=== PATIENT | male | born 1955 | race Caucasian/White ===

== ENCOUNTER 2016-10-18 15:00 | Emergency (ER) | payer OTHER ==
[2016-10-18 15:37] VITALS: TEMP 97.5
[2016-10-18] MEDS ORDERED: SODIUM CHLORIDE 0.9% 1,000 ML IV STA (15:59)
--- NOTE | 2016-10-18 16:02 | ED ---
Abdominal Pain HPI - General Chief Complaint: Abdominal Pain Stated Complaint: flu symptoms Time Seen by Provider: 10/18/16 15:55 Source: patient, RN notes reviewed Mode of arrival: ambulatory Limitations: no limitations - History of Present Illness Initial Comments: 61-year-old male presents emergency Department chief complaint of abdominal discomfort. Patient states that some abdominal cramping and diarrhea over the last one to days. Patient states she's had 2 episodes daily denies any hematemesis, coffee-ground emesis, melena or hematochezia. Patient had no nausea vomiting. Patient denies any fever, chills, back pain. Patient did apply a colonoscopy no other abdominal surgeries. Patient denies any dysuria or hematuria. - Related Data Home Medications Medication Instructions Recorded Confirmed Allopurinol [Zyloprim] 100 mg PO DAILY 10/18/16 10/18/16 Amlodipine(Unknown Dose) 1 tab PO DAILY 10/18/16 10/18/16 Allergies Allergy/AdvReac Type Severity Reaction Status Date / Time No Known Allergies Allergy Verified 10/18/16 16:17 Review of Systems ROS Statement: Those systems with pertinent positive or pertinent negative responses have been documented in the HPI. ROS Other: All systems not noted in ROS Statement are negative. Past Medical History Past Medical History: No Reported History History of Any Multi-Drug Resistant Organisms: None Reported Past Surgical History: No Surgical Hx Reported Past Psychological History: No Psychological Hx Reported Smoking Status: Never smoker Past Alcohol Use History: None Reported, Daily Past Drug Use History: None Reported General Exam Limitations: no limitations General appearance: alert, in no apparent distress Head exam: Present: atraumatic, normocephalic, normal inspection Neck exam: Present: normal inspection. Absent: tenderness, meningismus, lymphadenopathy Respiratory exam: Present: normal lung sounds bilaterally. Absent: respiratory distress, wheezes, rales, rhonchi, stridor Cardiovascular Exam: Present: regular rate, normal rhythm, normal heart sounds. Absent: systolic murmur, diastolic murmur, rubs, gallop, clicks GI/Abdominal exam: Present: soft, normal bowel sounds. Absent: distended, tenderness, guarding, rebound, rigid Back exam: Absent: CVA tenderness (R), CVA tenderness (L) Neurological exam: Present: alert, oriented X3, CN II-XII intact Skin exam: Present: warm, dry, intact, normal color. Absent: rash Course Vital Signs 10/18/16 15:34 Temperature 97.5 F L Pulse Rate 76 Respiratory 16 Rate Blood Pressure 142/77 O2 Sat by Pulse 98 Oximetry Medical Decision Making - Medical Decision Making 61-year-old male presented for abdominal discomfort diarrhea. Patient has mild ablation of his lipase consistent with his alcohol intake. Patient is advised to slow down his alcohol drinking increase fluid intake. Patient's diarrhea is most likely viral in nature. It is subcu bactrim infection. patient discharged return parameters were discussed. - Lab Data Result diagrams: 10/18/16 16:05 10/18/16 16:05 Lab Results 10/18/16 10/18/16 10/18/16 Range/Units 16:05 16:05 16:38 WBC 4.7 (3.8-10.6) k/uL RBC 5.44 (4.30-5.90) m/uL Hgb 16.1 (13.0-17.5) gm/dL Hct 48.5 (39.0-53.0) % MCV 89.2 (80.0-100.0) fL MCH 29.6 (25.0-35.0) pg MCHC 33.2 (31.0-37.0) g/dL RDW 14.8 (11.5-15.5) % Plt Count 168 (150-450) k/uL Neutrophils % 77 % Lymphocytes % 12 % Monocytes % 8 % Eosinophils % 1 % Basophils % 0 % Neutrophils # 3.6 (1.3-7.7) k/uL Lymphocytes # 0.6 L (1.0-4.8) k/uL Monocytes # 0.4 (0-1.0) k/uL Eosinophils # 0.0 (0-0.7) k/uL Basophils # 0.0 (0-0.2) k/uL Sodium 136 L (137-145) mmol/L Potassium 3.6 (3.5-5.1) mmol/L Chloride 102 (98-107) mmol/L Carbon Dioxide 22 (22-30) mmol/L Anion Gap 12 mmol/L BUN 25 H (9-20) mg/dL Creatinine 1.40 H (0.66-1.25) mg/dL Est GFR (MDRD) Af Amer >60 (>60 ml/min/1.73 sqM) Est GFR (MDRD) Non-Af 52 (>60 ml/min/1.73 sqM) Glucose 134 H (74-99) mg/dL Calcium 8.8 (8.4-10.2) mg/dL Total Bilirubin 0.4 (0.2-1.3) mg/dL AST 47 (17-59) U/L ALT 41 (21-72) U/L Alkaline Phosphatase 78 (38-126) U/L Total Protein 6.5 (6.3-8.2) g/dL Albumin 3.6 (3.5-5.0) g/dL Amylase 47 (30-110) U/L Lipase 603 H (23-300) U/L Urine Color Yellow Urine Appearance Clear (Clear) Urine pH 5.5 (5.0-8.0) Ur Specific [place] 1.018 (1.001-1.035) Urine Protein 1+ H (Negative) Urine Glucose (UA) Negative (Negative) Urine Ketones Negative (Negative) Urine Blood Moderate H (Negative) Urine Nitrite Negative (Negative) Urine Bilirubin Negative (Negative) Urine Urobilinogen <2.0 (<2.0) mg/dL Ur Leukocyte Esterase Negative (Negative) Urine RBC 1 (0-5) /hpf Urine WBC 6 H (0-5) /hpf Urine Bacteria Rare H (None) /hpf Hyaline Casts 26 H (0-2) /lpf Urine Mucus Occasional H (None) /hpf Disposition Clinical Impression: Pancreatitis, Diarrhea, Abdominal pain Disposition: HOME SELF-CARE Condition: Stable Instructions: Pancreatitis (ED), Acute Diarrhea (ED) Additional Instructions: Please return to the Emergency Department if symptoms worsen or any other concerns. Referrals: Nonstaff,Physician [REFERRING] - 1-2 days Time of Disposition: 17:05
[2016-10-18 16:25] LABS: Basophils % (A) 0 %; CH 31.2; CHCM 35.1; Eosinophils % (A) 1 %; HCT 48.5 % (39.0-53.0); HDW 2.77; HGB 16.1 gm/dL (13.0-17.5); Luc # (Auto) 0.11; Luc % (Auto) 2; Lymphocytes # (A) 0.6 k/uL (1.0-4.8); Lymphocytes % (A) 12 %; MCH 29.6 pg (25.0-35.0); MCHC 33.2 g/dL (31.0-37.0); MCV 89.2 fL (80.0-100.0); Mean Platelet Volume 8.5; Monocytes # (A) 0.4 k/uL (0-1.0); Monocytes % (A) 8 %; Neutrophils # (A) 3.6 k/uL (1.3-7.7); Neutrophils % (A) 77 %; RBC 5.44 m/uL (4.30-5.90); RDW 14.8 % (11.5-15.5); WBC 4.7 k/uL (3.8-10.6); WBC (Perox) 4.61
[2016-10-18 16:41] LABS: ALT 41 U/L (21-72); AST 47 U/L (17-59); Alkaline Phosphatase 78 U/L (38-126); Amylase 47 U/L (30-110); Anion Gap 12 mmol/L; Blood Urea Nitrogen 25 mg/dL (9-20); Calcium 8.8 mg/dL (8.4-10.2); Carbon Dioxide 22 mmol/L (22-30); Chloride 102 mmol/L (98-107); Glucose 134 mg/dL (74-99); Non-African American GFR(MDRD) 52 (>60 ml/min/1.73 sqM); Potassium 3.6 mmol/L (3.5-5.1); Sodium 136 mmol/L (137-145); Total Bilirubin 0.4 mg/dL (0.2-1.3); Total Protein 6.5 g/dL (6.3-8.2)
--- NOTE | 2016-10-18 16:49 | XR ---
EXAMINATION TYPE: XR KUB DATE OF EXAM: 10/18/2016 COMPARISON: NONE HISTORY: Pain TECHNIQUE: 2 views FINDINGS: Bowel gas pattern is normal. There is no sign of intestinal obstruction or pneumoperitoneum . Fecal pattern is normal. There is no sign of a mass. Lung bases are clear. IMPRESSION: Nonacute abdomen.
[2016-10-18 16:55] LABS: Appearance,Urine Clear (Clear); Bacteria,Urine Rare /hpf; Bilirubin,Urine Negative (Negative); Glucose,Urine (UA) Negative (Negative); Ketones,Urine Negative (Negative); Leukocyte Esterase,Urine Negative (Negative); Mucus,Urine Occasional /hpf; Nitrite,Urine Negative (Negative); PH, Urine 5.5 (5.0-8.0); Particle Count 7387; Protein,Urine 1+ (Negative); RBC,Urine 1 /hpf (0-5); Specific Gravity,Urine 1.018 (1.001-1.035); UA Billing (MACRO vs. MICRO) MICRO; Urobilinogen,Urine <2.0 mg/dL (<2.0); WBC,Urine 6 /hpf (0-5)
[2016-10-18 17:09] VITALS: PULSE 81; RESP 20
[2016-10-18 17:28] VITALS: BP 131/81
== END 2016-10-18 17:28 | disposition home or self-care (01) ==
LOC: EC 15:00
DX: K85.90 Acute pancreatitis without necrosis or infection, unspecified (principal); R19.7 Diarrhea, unspecified; Z79.899 Other long term (current) drug therapy
CPT/HCPCS: 36415; 74000; 80053; 81001; 82150; 83690; 85025; 96360; 99284

== ENCOUNTER 2022-07-11 15:23 | Observation (INO) | payer MEDICARE, OTHER ==
--- NOTE | 2022-07-11 16:22 | ED ---
General Adult HPI - General Chief complaint: Neuro Symptoms/Deficit Stated complaint: L sided numbness Time Seen by Provider: 07/11/22 15:39 Source: patient Mode of arrival: ambulatory Limitations: no limitations - History of Present Illness Initial comments: Dictation was produced using [employer] dictation software. please excuse any grammatical, word or spelling errors. Chief Complaint: 67-year-old male with past medical history of hypertension presents to the ER for left sided weakness History of Present Illness: 67-year-old male he had lunch and some beers at around noon time. Approximately 1:30 states that he had left the restaurant and all of a sudden felt weakness in his left arm and left leg. It lasted for most hour. She recently started on blood pressure medications prescribed by his primary care doctor. Patient states that his symptoms resolved on its own. Patient has a symptoms at this time. Symptoms were not associated with numbness, paresthesias of the extremities. The ROS documented in this emergency department record has been reviewed and confirmed by me. Those systems with pertinent positive or negative responses have been documented in the HPI. All other systems are other negative and/or noncontributory. - Related Data Home Medications Medication Instructions Recorded Confirmed lisinopriL [Zestril] 20 mg PO DAILY 07/11/22 07/11/22 Allergies Allergy/AdvReac Type Severity Reaction Status Date / Time No Known Allergies Allergy Verified 07/11/22 16:27 Review of Systems ROS Statement: Those systems with pertinent positive or pertinent negative responses have been documented in the HPI. ROS Other: All systems not noted in ROS Statement are negative. Past Medical History Past Medical History: No Reported History, Hypertension History of Any Multi-Drug Resistant Organisms: None Reported Past Surgical History: No Surgical Hx Reported Past Psychological History: No Psychological Hx Reported Past Alcohol Use History: None Reported, Daily Past Drug Use History: None Reported General Exam - General Exam Comments Initial Comments: PHYSICAL EXAM: General Impression: Alert and oriented x3, not in acute distress HEENT: Normocephalic atraumatic, extra-ocular movements intact, pupils equal and reactive to light bilaterally, mucous membranes moist. Cardiovascular: Heart regular rate and rhythm Chest: Able to complete full sentences, no retractions, no tachypnea Abdomen: abdomen soft, non-tender, non-distended, no organomegaly Musculoskeletal: Pulses present and equal in all extremities, no peripheral edema Motor: no focal deficits noted Neurological: CN II-XII grossly intact, no focal motor or sensory deficits noted, NIH 0 Skin: Intact with no visualized rashes Psych: Normal affect and mood Limitations: no limitations Course Vital Signs 07/11/22 15:27 Temperature 97.9 F Pulse Rate 71 Respiratory 18 Rate Blood Pressure 100/62 O2 Sat by Pulse 97 Oximetry Medical Decision Making - Medical Decision Making Was pt. sent in by a medical professional or institution (, PA, WEB MARKETING INTERN, urgent care, hospital, or [facility]...) When possible be specific @ -No Did you speak to anyone other than the patient for history (EMS, parent, family, police, friend...)? What history was obtained from this source @ -No Did you review nursing and triage notes (agree or disagree)? Why? @ -I reviewed and agree with nursing and triage notes Were old charts reviewed (outside hosp., previous admission, EMS record, old EKG, old radiological studies, urgent care reports/EKG's, [facility] records)? Report findings @ -No old charts were reviewed Differential Diagnosis (chest pain, altered mental status, abdominal pain women, abdominal pain men, vaginal bleeding, musculoskeletal, weakness, fever, dyspnea, syncope, headache, dizziness, GI bleed, back pain, seizure, CVA, palp atations, mental health)? @ - Differential CVA: Ischemic stroke, hemorrhagic stroke, brain tumor, atypical migraine, Wernicke's encephalopathy, seizure, multiple sclerosis, meningitis, encephalitis, hypoglycemia, Guillain-Strange, electrolytes disturbance, myasthenia gravis.... This is not meant to be an all-inclusive list EKG interpreted by me (3pts min.). @ -My EKG interpretation: Ventricular rate 62, sinus rhythm,. 151, QRS 112, QTC 375. No AR prolongation, no QTC prolongation, no ST or T-wave changes noted. Overall, this EKG is unremarkable X-rays interpreted by me (1pt min.). @ -None done CT interpreted by me (1pt min.). @ -CT brain is unremarkable U/S interpreted by me (1pt. min.). @ -None done What testing was considered but not performed or refused? (CT, X-rays, U/S, labs)? Why? @ -None What meds were considered but not given or refused? Why? @ -None Did you discuss the management of the patient with other professionals (professionals i.e. DrElena, PA, WEB MARKETING INTERN, lab, RT, psych nurse, social media campaign manager, patient ombudsperson, teacher, chief school finance officer, rifle case repairer)? Give summary @ -Case discussed with hospitalist for admission Was smoking cessation discussed for >3mins.? @ -No Was critical care preformed (if so, how long)? @ -No Were there social determinants of health that impacted care today? How? (Homelessness, low income, unemployed, alcoholism, drug addiction, transportation, low edu. Level, literacy, decrease access to med. care, retirement, rehab)? @ -No Was there de-escalation of care discussed even if they declined (Discuss DNR or withdrawal of care, Hospice)? DNR status @ -No What co-morbidities impacted this encounter? (DM, HTN, Smoking, COPD, CAD, Cancer, CVA, ARF, Chemo, Hep., AIDS, mental health diagnosis, sleep apnea, morbi d obesity)? @ -None Was patient admitted / discharged? Hospital course, mention meds given and route, prescriptions, significant lab abnormalities, going to OR and other pertinent info. @ -67-year-old male presents with episode of left-sided weakness. Clinical presentation suspicious for transient ischemic attack. Vital signs upon arrival are within acceptable limits. Labs are unremarkable. CT brain is negative. Patient evaluated bedside with no recurrence of symptoms. Patient is relatively high risk. He'll be admitted with consultation to neurology. Undiagnosed new problem with uncertain prognosis? @ -No Drug Therapy requiring intensive monitoring for toxicity (Heparin, Nitro, Insulin, Cardizem)? @ -No Were any procedures done? @ -No Diagnosis/symptom? Acute, or Chronic, or Acute on Chronic? Uncomplicated (without systemic symptoms) or Complicated (systemic symptoms)? @ -1. Acute transient ischemic attack Side effects of treatment? @ -No Exacerbation, Progression, or Severe Exacerbation? @ -No Poses a threat to life or bodily function? How? (Chest pain, [place], [place], pneumonia, PE, COPD, DKA, ARF, appy, cholecystitis, CVA, Diverticulitis, Homicidal, Suicidal, threat to staff... and all critical care pts) @ -Yes - Lab Data Result diagrams: 07/11/22 16:22 07/11/22 16:22 Lab Results 07/11/22 07/11/22 07/11/22 Range/Units 16:22 16:22 16:22 WBC 5.5 (3.8-10.6) k/uL RBC 5.33 (4.30-5.90) m/uL Hgb 15.6 (13.0-17.5) gm/dL Hct 46.8 (39.0-53.0) % MCV 87.8 (80.0-100.0) fL MCH 29.3 (25.0-35.0) pg MCHC 33.4 (31.0-37.0) g/dL RDW 14.8 (11.5-15.5) % Plt Count 182 (150-450) k/uL MPV 8.0 Neutrophils % 59 % Lymphocytes % 29 % Monocytes % 7 % Eosinophils % 2 % Basophils % 1 % Neutrophils # 3.2 (1.3-7.7) k/uL Lymphocytes # 1.6 (1.0-4.8) k/uL Monocytes # 0.4 (0-1.0) k/uL Eosinophils # 0.1 (0-0.7) k/uL Basophils # 0.0 (0-0.2) k/uL PT 10.2 (9.0-12.0) sec INR 1.0 (<1.2) APTT 22.9 (22.0-30.0) sec Sodium 137 (137-145) mmol/L Potassium 4.2 (3.5-5.1) mmol/L Chloride 102 (98-107) mmol/L Carbon Dioxide 19 L (22-30) mmol/L Anion Gap 16 mmol/L BUN 18 (9-20) mg/dL Creatinine 0.80 (0.66-1.25) mg/dL Est GFR (CKD-EPI)AfAm >90 (>60 ml/min/1.73 sqM) Est GFR (CKD-EPI)NonAf >90 (>60 ml/min/1.73 sqM) Glucose 97 (74-99) mg/dL Calcium 8.8 (8.4-10.2) mg/dL Disposition Clinical Impression: TIA (transient ischemic attack) Disposition: ADMITTED IP TO THIS HOSP Condition: Fair Referrals: Ar Oviedo MD [Primary Care Provider] - 1-2 days Decision Time: 17:00
--- NOTE | 2022-07-11 16:34 | CT ---
EXAMINATION TYPE: CT brain wo con DATE OF EXAM: 07/11/2022 COMPARISON: None HISTORY: left side weakness CT DLP: 1099.[address] of the brain was performed. The ventricles, basal cisterns and sulci overlying the cerebral convexities demonstrate mild enlargem ent. There is no evidence for intracranial hemorrhage or sulcal effacement. There is decreased attenuation about the periventricular white matter and deep white matter of both c erebral hemispheres, compatible with chronic small vessel ischemia. Differential diagnosis does inclu de demyelination. No mass effects are seen.No midline shift. Osseous calvarium is intact. If symptoms persist consider MRI. IMPRESSION: 1. Age related atrophic and chronic small vessel ischemic change without acute intracranial process s een at this time.
[2022-07-11 16:41] LABS: Basophils % (A) 1 %; Eosinophils # (A) 0.1 k/uL (0-0.7); Eosinophils % (A) 2 %; HCT 46.8 % (39.0-53.0); HGB 15.6 gm/dL (13.0-17.5); Lymphocytes # (A) 1.6 k/uL (1.0-4.8); Lymphocytes % (A) 29 %; MCH 29.3 pg (25.0-35.0); MCHC 33.4 g/dL (31.0-37.0); MCV 87.8 fL (80.0-100.0); Monocytes # (A) 0.4 k/uL (0-1.0); Monocytes % (A) 7 %; Neutrophils # (A) 3.2 k/uL (1.3-7.7); Neutrophils % (A) 59 %; Platelet Count 182 k/uL (150-450); RBC 5.33 m/uL (4.30-5.90); RDW 14.8 % (11.5-15.5); WBC 5.5 k/uL (3.8-10.6)
[2022-07-11 16:53] LABS: African American GFR (CKD) >90 (>60 ml/min/1.73 sqM); Anion Gap 16 mmol/L; Blood Urea Nitrogen 18 mg/dL (9-20); Calcium 8.8 mg/dL (8.4-10.2); Carbon Dioxide 19 mmol/L (22-30); Chloride 102 mmol/L (98-107); Glucose 97 mg/dL (74-99); Non-African American GFR(CKD) >90 (>60 ml/min/1.73 sqM); Potassium 4.2 mmol/L (3.5-5.1); Sodium 137 mmol/L (137-145)
[2022-07-11 16:56] LABS: Partial Thromboplastin Time 22.9 sec (22.0-30.0); Prothrombin Time 10.2 sec (9.0-12.0)
[2022-07-11] MEDS ORDERED: NALOXONE 0.4 MG/ML 1 ML VIAL IV PRN (17:17)
[2022-07-11] MEDS ORDERED: ASPIRIN 81 MG PO STA (17:18)
[2022-07-11] MEDS: SODIUM CHLORIDE 0.9% 1,000 ML IV SCH (17:52)
[2022-07-12] MEDS ORDERED: ACETAMINOPHEN TAB 325 MG TAB PO PRN (00:16)
--- NOTE | 2022-07-12 10:40 | P.CNNES ---
History of Present Illness Consult date: 07/12/22 Requesting physician: Nick Ulrich Reason for Consult: tia History of Present Illness: This is a 67-year-old gentleman with recent history of hypertension who presented emergency department because of the left-sided weakness and numbness. Patient has a newly diagnosed hypertension that was recently found about 2 weeks ago while he was at his dentist and his blood pressure was checked and was elevated so he was placed as a result on the amlodipine that he could not tolerate the medication so he stopped it and seems to that the last day or 2 he was prescribed lisinopril for his low blood pressure but then one yesterday and around 11:00 in the morning he noticed that he is having numbness initially of the left upper extremity and felt was weak but didn't know exactly what was going on. He went to the to the bar and he had 3 drinks of beer and he let felt his left leg was weak and numb and had difficulty getting out of the car when he went to the the [employer] store so as a result he came to the hospital. He felt by 4:00 PM his symptoms has resolved. He denied any neck pain. Denies any headache,. Denies any difficulty swallowing or difficulty getting his words out. Denies any history of stroke or TIA in the past. Besides the recent hypertension and he denies any other medical issues. He denies being on any antiplatelets or anticoagulation. Denies history of atrial fibrillation. He feels back to baseline now. Some of the workup during his hospital visit consisted of: Initial presentation his bilateral blood pressure was 100/62 but then it was 145/82. His initial glucose was 97. Calcium sodium BUN and creatinine are within normal limits. CT of the head is reported as age-related atrophic and chronic small vessel ischemic change without acute intracranial process seen at this time. 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 There is no acute ischemia or any bleeding noted. Patient did not receive IV TPA since the patient's symptoms has resolved and the risks outweigh the benefit. Review of Systems Review of system: The 12 point system was reviewed and apparent positive and negative per HPI. Past Medical History Past Medical History: Hypertension Additional Past Medical History / Comment(s): Gout. History of Any Multi-Drug Resistant Organisms: None Reported Past Surgical History: No Surgical Hx Reported Additional Past Surgical History / Comment(s): Arthroscopy to right ankle. Past Psychological History: No Psychological Hx Reported Smoking Status: Never smoker Past Alcohol Use History: Daily Past Drug Use History: Marijuana Medications and Allergies Home Medications Medication Instructions Recorded Confirmed Type lisinopriL [Zestril] 20 mg PO DAILY 07/11/22 07/11/22 History Allergies Allergy/AdvReac Type Severity Reaction Status Date / Time No Known Allergies Allergy Verified 07/11/22 16:27 Physical Examination - Vital Signs Vital Signs: Vital Signs Temp Pulse Pulse Resp BP BP Pulse Ox 07/12/22 07:00 97.7 F 54 L 15 107/66 100 07/12/22 01:28 97.8 F 51 L 16 129/69 96 07/11/22 21:43 97.7 F 69 16 132/59 99 07/11/22 21:30 16 07/11/22 20:00 98.2 F 58 L 18 134/89 96 07/11/22 18:00 59 L 16 102/78 07/11/22 17:30 74 18 119/78 97 07/11/22 17:00 61 19 133/85 93 L 07/11/22 16:30 62 16 131/76 07/11/22 16:00 68 17 145/82 07/11/22 15:27 97.9 F 71 18 100/62 97 Intake and Output 07/11/22 07/12/22 07/12/22 22:59 06:59 14:59 Intake Total 118 Balance 118 Intake: Oral 118 Other: Voiding Method Toilet # Voids 1 1 Weight 104.78 kg GENERAL: The patient is lying in bed and is not in acute distress. CHEST: The heart rate is regular rate rhythm. No murmurs to auscultation. No carotid bruit bilaterally. LUNG: Clear to auscultation bilaterally no wheezing noted throughout. Not labored breathing. ABDOMEN/GI: Bowel sounds present in all 4 quadrants. No tenderness to palpation throughout. NEUROLOGICAL: Higher mental function: The patient is awake, alert, oriented to self, place and time. Patient is following commands. No aphasia and no neglect. Cranial nerves: The pupils are round, equal and reactive to light and accommodation. Visual bella are full to confrontation throughout. Extraocular movement is intact no nystagmus is noted. Facial sensation is normal to touch throughout. The facial strength is normal throughout. Hearing is normal bilaterally to hand rub. Tongue is midline and moved [id number] without any difficulty. No dysarthria is noted. Shoulder shrug is normal bilaterally. Motor: The strength is 5 over 5 throughout. Normal tone and bulk. Cerebellum: Normal finger to nose bilaterally. Sensation: Sensation is normal to touch throughout. Reflexes (right/left): 2+ throughout. Plantars are mute bilaterally. Results - Laboratory Findings CBC and BMP: 07/11/22 16:22 07/11/22 16:22 Abnormal Lab Findings: Abnormal Labs 07/11/22 16:22 Carbon Dioxide 19 L Assessment and Plan Assessment: This is a 67-year-old gentleman who presented because of left-sided weakness and numbness that occurred around 11:00 on 07/11/2022 his symptoms has resolved. It seems that he has recent hypertension and the could not tolerate the medication for the last 2 weeks. Likely transient ischemic attack (seems due to his risk factor of hypertension) Recent hypertension and could not tolerate medication Alcohol use (drinks 2X weeks and during those days he drinks 6 pack of beer). Marijuana use Plan: I ordered stroke workup; MRI the brain, carotid duplex, 2-D echo, lipid panel, TSH, hemoglobin A1c. I also ordered Lyme B12, folate to rule out any vitamin deficiencies pressure that he drinks alcohol. Patient was given aspirin 324 mg once. I started the patient on aspirin 325 mg daily as well as Plavix 75 mg daily. Patient to be on dual antiplatelets for 21 days and after 21 days stop Plavix but continue aspirin indefinitely. Started the patient on Lipitor 40 mg daily at bedtime for secondary stroke prophylaxis. Every 4 hours neuro checks On cardiac monitoring PT OT are consulted I started the patient on thiamine 100 mg daily. The patient was counseled on the cutting down on his alcohol use. I ordered alcohol level as well as the urine drug screen. We'll defer the rest of the medical management to primary team For DVT prophylaxis I started the patient on subcu heparin 5000 units every hours The plan was discussed with the patient as well as the primary attending Thank you for the consultation Time with Patient: Greater than 30
[2022-07-12] MEDS: CLOPIDOGREL 75 MG TAB PO SCH (10:51)
[2022-07-12] MEDS: ASPIRIN 325 MG TAB PO SCH (10:51)
[2022-07-12] MEDS: THIAMINE 100 MG TAB PO SCH (10:51)
[2022-07-12 11:37] LABS: Alcohol <10 mg/dL
[2022-07-12 12:10] LABS: Amphetamine Screen,Urine Not Detected (NotDetected); Barbiturate Screen,Urine Not Detected (NotDetected); Benzodiazepines Screen,Urine Not Detected (NotDetected); Cocaine Screen,Urine Not Detected (NotDetected); Methadone Screen, Urine Not Detected (NotDetected); Opiate Screen,Urine Not Detected (NotDetected); Oxycodone Screen, Urine Not Detected (NotDetected); Phencyclidine Screen,Urine Not Detected (NotDetected); Tricyclic Antidepressant,Urine Not Detected (NotDetected); Urn Cannabinoid Scrn Not Detected (NotDetected)
--- NOTE | 2022-07-12 16:44 | US ---
EXAMINATION TYPE: US carotid duplex BILAT DATE OF EXAM: 07/12/2022 COMPARISON: CT brain CLINICAL INDICATION: Male, 67 years old with history of stroke; Stroke. TECHNIQUE: Carotid duplex ultrasound examination. Indirect Doppler criteria was utilized. FINDINGS: EXAM MEASUREMENTS: RIGHT: Peak Systolic Velocity (PSV) cm/sec ----- Right CCA: 84.2 ----- Right ICA: 94.1 ----- Right ECA: 138.3 ICA/CCA ratio: 1.1 RIGHT: End Diastole cm/sec ----- Right CCA: 20.4 ----- Right ICA: 36.9 ----- Right ECA: 17.1 LEFT: Peak Systolic Velocity (PSV) cm/sec ----- Left CCA: 97.8 ----- Left ICA: 93.0 ----- Left ECA: 117.3 ICA/CCA ratio: 1.0 LEFT: End Diastole cm/sec ----- Left CCA: 24.1 ----- Left ICA: 31.4 ----- Left ECA: 16.3 VERTEBRALS (direction of flow): Right Vertebral: Antegrade Left Vertebral: Antegrade Rhythm: Normal MANUFACTURING PROJECT ENGINEER NOTES: Intimal thickening seen within bilateral carotid arteries. *Elevated velocity with in right ECA. IMPRESSION: Less than 50% stenosis bilateral carotid bifurcations. Criteria for Assigning % of Stenosis / Diameter reduction (Estimation based on the indirect measurements of the internal carotid artery velocities (ICA PSV). 1. Normal (no stenosis)=ICA PSV < 125 cm/s: ratio < 2.0: ICA EDV<40 cm/s. 2. Less than 50% stenosis=ICA PSV < 125 cm/s: ratio < 2.0: ICA EDV<40 cm/s. 3. 50 to 69% stenosis=ICA PSV of 125 to 230 cm/s: ration 2.0 ? 4.0: ICA EDV 40-100 cm/s. 4. Greater than 70% stenosis to near occlusion= ICA PSV > 230 cm/s: ratio > 4.0: ICA EDV > 100 cm/s. 5. Near occlusion= ICA PSV velocities may be low or undetectable: variable ratio and ICA EDV. 6. Total occlusion=unable to detect flow.
[2022-07-12] MEDS: HEPARIN SODIUM,PORCINE/PF 5,000 UNIT/0.5 ML SYRINGE SQ SCH ×2 (17:21→21:42)
--- NOTE | 2022-07-12 17:21 | P.HPIM ---
History of Present Illness This is a pleasant 67 years old male with past medical history of hypertension. Patient presents because of left-sided numbness and weakness. Patient states yesterday he was doing shopping when he noticed that his left leg is numb and slightly weak. He continued to do shopping with his brother and then they want to the bar when they had 3 beers after that he noticed that he has more weakness in his left leg as well as his left upper extremity now associated with numbness and paresthesias so he got concerned and decided to come to emergency room. Currently patient says that HIS SYMPTOMS RESOLVED AND HIS LEFT ARM AND LEG CAME BACK TO NORMAL WITH NO MORE WEAKNESS OR NUMBNESS. PATIENT DENIES HEADACHE OR DIZZINESS. NO SLURRED SPEECH OR BLURRED VISION NO CHEST PAIN OR DYSPNEA. NO CHANGE IN URINE OR BOWEL HABITS. NO FEVER. HE DENIES SMOKING. HE DRINKS ALCOHOL OCCASIONALLY. HE DRINKS TWICE A WEEK. NO ILLICIT TRACTS Vitals are stable Has unremarkable labs including CBC, BMP and liver enzymes EKG showing normal sinus rhythm at [address]-T changes CT of the brain: No acute process Patient was given aspirin 324 mg 1 Review of Systems Review of systems CONSTITUTIONAL: No fever, no malaise, no fatigue. HEENT: No recent visual problems or hearing problems. Denied any sore throat. CARDIOVASCULAR: No orthopnea, PND, no palpitations, no syncope. PULMONARY: No shortness of breath, no cough, no hemoptysis. GASTROINTESTINAL: No diarrhea, no nausea, no vomiting, no abdominal pain. Normoactive bowel sounds. NEUROLOGICAL: No headaches, no weakness, no numbness. HEMATOLOGICAL: Denies any bleeding or petechiae. GENITOURINARY: Denies any burning micturition, frequency, or urgency. MUSCULOSKELETAL/RHEUMATOLOGICAL: Denies any joint pain, swelling, or any muscle pain. ENDOCRINE: Denies any polyuria or polydipsia. Past Medical History Past Medical History: Hypertension Additional Past Medical History / Comment(s): Gout. History of Any Multi-Drug Resistant Organisms: None Reported Past Surgical History: No Surgical Hx Reported Additional Past Surgical History / Comment(s): Arthroscopy to right ankle. Past Psychological History: No Psychological Hx Reported Smoking Status: Never smoker Past Alcohol Use History: Daily Past Drug Use History: Marijuana Medications and Allergies Home Medications Medication Instructions Recorded Confirmed Type lisinopriL [Zestril] 20 mg PO DAILY 07/11/22 07/11/22 History Allergies Allergy/AdvReac Type Severity Reaction Status Date / Time No Known Allergies Allergy Verified 07/11/22 16:27 Physical Exam Vitals: Vital Signs Temp Pulse Pulse Resp BP BP Pulse Ox 07/11/22 21:43 97.7 F 69 16 132/59 99 07/11/22 21:30 16 07/11/22 20:00 98.2 F 58 L 18 134/89 96 07/11/22 18:00 59 L 16 102/78 07/11/22 17:30 74 18 119/78 97 07/11/22 17:00 61 19 133/85 93 L 07/11/22 16:30 62 16 131/76 07/11/22 16:00 68 17 145/82 07/11/22 15:27 97.9 F 71 18 100/62 97 Intake and Output 07/11/22 07/11/22 07/12/22 14:59 22:59 06:59 Other: Voiding Method Toilet # Voids 1 Weight 104.78 kg GENERAL: The patient is alert and oriented x3, not in any acute distress. Well developed, well nourished. HEENT: Pupils are round and equally reacting to light. EOMI. No scleral icterus. No conjunctival pallor. Normocephalic, atraumatic. No pharyngeal erythema. No thyromegaly. CARDIOVASCULAR: S1 and S2 present. No murmurs, rubs, or gallops. PULMONARY: Chest is clear to auscultation, no wheezing or crackles. ABDOMEN: Soft, nontender, nondistended, normoactive bowel sounds. No palpable or ganomegaly. MUSCULOSKELETAL: No joint swelling or deformity. EXTREMITIES: No cyanosis, clubbing, or pedal edema. NEUROLOGICAL: Gross neurological examination did not reveal any focal deficits. SKIN: No rashes. no petechiae. Results CBC & Chem 7: 07/11/22 16:22 07/11/22 16:22 Labs: Abnormal Lab Results - Last 24 Hours (Table) 07/11/22 Range/Units 16:22 Carbon Dioxide 19 L (22-30) mmol/L Thrombosis Risk Factor Assmnt - Choose All That Apply Each Factor Represents 1 point: Obesity (BMI >25) Each Risk Factor Represents 2 Points: Age 61-74 years Thrombosis Risk Factor Assessment Total Risk Factor Score: 3 Thrombosis Risk Factor Assessment Level: Moderate Risk Assessment and Plan Assessment: Transient ischemic attack with left-sided weakness and numbness which is resolved Hypertension Obesity with BMI of 33.1 Plan: Continue with aspirin Neurology consult Labs and medication were reviewed.. Continue same treatment. Continue with symptomatic treatment. Resume home medication. Monitor labs and vitals. DVT and GI prophylaxis. Further recommendations as per clinical course of the patient DVT prophylaxis: Subcutaneous heparin GI Prophylaxis: Pepcid PT/OT: Pending Prognosis is guarded
[2022-07-12] MEDS: SODIUM CHLORIDE 0.9% 1,000 ML IV SCH (17:23)
--- NOTE | 2022-07-12 21:10 | MR ---
EXAMINATION TYPE: MR brain wo con DATE OF EXAM: 07/12/2022 7:33 PM COMPARISON: CT brain 07/11/2022. CLINICAL INDICATION:Male, 67 years old with history of stroke. left sided numbness and weakness; Str jenny. Left sided numbness and weakness. TECHNIQUE: Multi planar, multi sequence imaging was performed through the brain including: T1, T2, In version recovery, Diffusion weighted imaging, and gradient echo imaging. No gadolinium was given. FINDINGS: Focus of restricted diffusion is seen within the right basal ganglia. The skaggs-white junctions, ventr icular system, and cisterns appear unremarkable. Scattered foci of high T2 signal intensity are seen within the periventricular white matter. Midline structures show no abnormality. The susceptibility weighted images do not reveal any evidence for micro-hemorrhage. The bone marrow signal is within normal limits. Paranasal sinuses and mastoid air cells: Mucosal thickening of high T2 signal within the left sphenoi d sinus. Visualized orbits: Orbital contents are intact. IMPRESSION: 1. Acute/subacute CVA involving the right basal ganglia. 2. Nonspecific white matter changes, likely secondary to small vessel ischemic disease.
[2022-07-12] MEDS: ATORVASTATIN 40 MG TAB PO SCH (21:42)
[2022-07-12 22:10] LABS: Chol/HDL Ratio 4.71 Ratio; LDL Cholesterol,Calculated 109.8 mg/dL (0.0-131.0)
[2022-07-13] MEDS: THIAMINE 100 MG TAB PO SCH (08:36)
[2022-07-13] MEDS: HEPARIN SODIUM,PORCINE/PF 5,000 UNIT/0.5 ML SYRINGE SQ SCH ×3 (08:36→23:59)
[2022-07-13] MEDS: ASPIRIN 325 MG TAB PO SCH (08:37)
[2022-07-13] MEDS: CLOPIDOGREL 75 MG TAB PO SCH (08:37)
[2022-07-13] MEDS: FAMOTIDINE 20 MG/2 ML VIAL IV SCH ×2 (10:02→20:43)
--- NOTE | 2022-07-13 13:30 | P.PN ---
Subjective Progress Note Date: 07/13/22 Patient seen at bedside and denies any further weakness numbness or any neurological issues. He feels he is back to baseline. Objective - Vital Signs Vital signs: Vital Signs Temp 97.8 F 07/13/22 07:00 Pulse 61 07/13/22 08:00 Resp 16 07/13/22 08:00 BP 144/85 07/13/22 07:00 Pulse Ox 99 07/13/22 07:00 FiO2 Intake & Output 07/12/22 07/13/22 07/13/22 18:59 06:59 18:59 Intake Total 236 118 Balance 236 118 Intake: Intake, IV Titration 0 Amount Sodium Chloride 0.9% 1, 0 000 ml @ 20 mls/hr IV . Q24H [facility] Rx#:[id number] Oral 236 118 Other: Voiding Method Toilet Toilet # Voids 2 - Exam GENERAL: The patient is lying in bed and is not in acute distress. NEUROLOGICAL: Higher mental function: The patient is awake, alert, oriented to self, place and time. Patient is following commands. No aphasia and no neglect. Cranial nerves: The pupils are round, equal and reactive to light and accommodation. Visual bella are full to confrontation throughout. Extraocular movement is intact no nystagmus is noted. Facial sensation is normal to touch throughout. The facial strength is normal throughout. Hearing is normal bilaterally to hand rub. Tongue is midline and moved munr-wo-moun without any difficulty. No dysarthria is noted. Shoulder shrug is normal bilaterally. Motor: The strength is 5 over 5 throughout. Normal tone and bulk. Cerebellum: Normal finger to nose bilaterally. Sensation: Sensation is normal to touch throughout. Reflexes (right/left): 2+ throughout. Plantars are mute bilaterally. Some of the workup during his hospital visit consisted of: Lipid panel is triglyceride is 274, cholesterol is 209, LDLs 109 and HDL is 44. Vitamin B12 is 532 Folate is 18.4 TSH is 3.12 Hemoglobin A1c is 5.9. Urine drug screen is not detected in the serum alcohol was less than 10 His initial glucose was 97. Calcium sodium BUN and creatinine are within normal limits. CT of the head is reported as age-related atrophic and chronic small vessel ischemic change without acute intracranial process seen at this time. 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 There is no acute ischemia or any bleeding noted. Carotid duplex was reported as less than 50% stenosis bilateral carotid bifurcation. MR the brain is reported as acute/subacute CVA involving the right basal ganglia. Nonspecific white matter changes, likely secondary due to small vessel ischemic disease. I personally reviewed the MRI and agree with the report. - Labs CBC & Chem 7: 07/11/22 16:22 07/11/22 16:22 Labs: Abnormal Lab Results - Last 24 Hours (Table) 07/12/22 Range/Units 10:55 Triglycerides 274.00 H (0.00-149.00) mg/dL Cholesterol 209.00 H (0.00-200.00) mg/dL VLDL Cholesterol, Calc 54.80 H (5.00-40.00) mg/dL Assessment and Plan Assessment: This is a 67-year-old gentleman who presented because of left-sided weakness and numbness that occurred around 11:00 on 07/11/2022 his symptoms has resolved. It seems that he has recent hypertension and the could not tolerate the medication for the last 2 weeks. Acute ischemic stroke over the right basal ganglia due to chronic small vessel ischemic disease from his uncontrolled hypertension. Patient is back to baseline. Recent hypertension and could not tolerate medication. Unknown if actually patient had hypertension not diagnosed in the past but was found out just recently Alcohol use (drinks 2X weeks and during those days he drinks 6 pack of beer). Marijuana use Plan: Pending 2-D echo. Patient to be on dual antiplatelets for 21 days (ASA 325mg daily and Plavix 75mg daily). After 21 days stop Plavix but continue aspirin indefinitely. Continue Lipitor 40 mg daily at bedtime for secondary stroke prophylaxis. Every 4 hours neuro checks On cardiac monitoring PT OT are consulted Continue thiamine 100 mg daily. The patient was counseled on the cutting down on his alcohol use. We'll defer the rest of the medical management to primary team For DVT prophylaxis On subcu heparin 5000 units every hours Upon discharge recommend the patient follow up with a neurologist within 1-2 weeks. The plan was discussed with the patient as well as the primary attending Pending 2-D echo and if it's normal then the patient is clear from a neurologic perspective
--- NOTE | 2022-07-13 16:20 | CA ---
Transthoracic Echo Report Name: Cristóbal Canales Age: 67 Gender: M : 1955 Exam Date: 07/13/2022 13:28 Exam Location: [facility] Ht (in): 70 Wt (lb): 230 Ordering Physician: Patrick Rojas MD Attending/Referring Phys: [employer] Loan Calculator Afia Montenegro RDCS Procedure CPT: Indications: with bubble. stroke Cardiac Hx: Technical Quality: Fair Contrast 1: Total Dose (mL): Contrast 2: Total Dose (mL): MEASUREMENTS (Male / Female) Normal Values 2D ECHO LV Diastolic Diameter PLAX 4.9 cm 4.2 - 5.9 / 3.9 - 5.3 cm LV Systolic Diameter PLAX 3.8 cm LV Fractional Shortening PLAX 23.1 % IVS Diastolic Thickness 1.3 cm 0.6 - 1.0 / 0.6 - 0.9 cm IVS Systolic Thickness 1.7 cm LVPW Diastolic Thickness 1.5 cm 0.6 - 1.0 / 0.6 - 0.9 cm LVPW Systolic Thickness 1.6 cm LV Relative Wall Thickness 0.6 RV Internal Dim ED PLAX 3.7 cm LVOT Diameter 2.3 cm LA Systolic Diameter LX 3.5 cm 3.0 - 4.0 / 2.7 - 3.8 cm LV Diastolic Volume MOD BP 125.8 cm??? 67 - 155 / 56 - 104 cm??? LV Systolic Volume MOD BP 62.4 cm??? 22 - 58 / 19 - 49 cm??? LV Ejection Fraction MOD BP 50.4 % >= 55 % LV Stroke Volume MOD BP 63.4 cm??? LV Diastolic Volume MOD 4C 137.6 cm??? LV Systolic Volume MOD 4C 64.4 cm??? LV Ejection Fraction MOD 4C 53.2 % LV Stroke Volume MOD 4C 73.2 cm??? LV Diastolic Length 4C 8.5 cm LV Systolic Length 4C 7.6 cm LV Diastolic Volume MOD 2C 106.8 cm??? LV Systolic Volume MOD 2C 53.3 cm??? LV Ejection Fraction MOD 2C 50.1 % LV Stroke Volume MOD 2C 53.4 cm??? LV Diastolic Length 2C 7.7 cm LV Systolic Length 2C 6.7 cm Ascending Aorta Diameter 3.1 cm M-MODE Aortic Root Diameter MM 3.7 cm LA Systolic Diameter MM 3.4 cm LA Ao Ratio MM 0.9 MV E Point Septal Separation 2.0 cm AV Cusp Separation MM 2.1 cm DOPPLER AV Peak Velocity 98.2 cm/s AV Peak Gradient 3.9 mmHg MV Deceleration Spink 232.2 cm/s??? Mitral E Point Velocity 57.9 cm/s Mitral A Point Velocity 93.4 cm/s Mitral E to A Ratio 0.6 MV Deceleration Time 249.5 ms MV E' Velocity 4.3 cm/s Mitral E to MV E' Ratio 13.4 TR Peak Velocity 231.1 cm/s TR Peak Gradient 21.4 mmHg Right Ventricular Systolic Press 31.4 mmHg PV Peak Velocity 63.7 cm/s PV Peak Gradient 1.6 mmHg FINDINGS Left Ventricle Left ventricular ejection fraction is estimated at 50 %. Mild concentric left ventricular hypertrophy. Grade 1 diastolic dysfunction. Normal basal systolic function. Right Ventricle Mild right ventricular dilatation. RVSP- 31 mm Hg. Right Atrium Mild right atrial dilatation. Left Atrium Mild left atrial dilatation. Mitral Valve Structurally normal mitral valve. No mitral stenosis. Mild mitral regurgitation. Aortic Valve Trileaflet aortic valve. No aortic stenosis. No aortic regurgitation. Tricuspid Valve [id number] tricuspid regurgitation. Pulmonic Valve Pulmonic valve not well visualized. Pericardium Normal pericardium. No pericardial effusion. Aorta Normal size aortic root and proximal ascending aorta. CONCLUSIONS Left ventricular ejection fraction 50% Mildly increased left ventricular wall thickness Mild mitral regurgitation Mild to moderate tricuspid regurgitation RVSP 31 Bubble study not performed. If bubble study desired may consider repeat transthoracic echo. Previewed by: Dr. Giovanni Brown DO (Electronically Signed) Final Date: 13 July 2022 16:19
[2022-07-13] MEDS: SODIUM CHLORIDE 0.9% 1,000 ML IV SCH (18:21)
[2022-07-13] MEDS: ATORVASTATIN 40 MG TAB PO SCH (20:43)
--- NOTE | 2022-07-13 22:16 | P.PN ---
Subjective This is a pleasant 67 years old male with past medical history of hypertension. Patient presents because of left-sided numbness and weakness. Patient states yesterday he was doing shopping when he noticed that his left leg is numb and slightly weak. He continued to do shopping with his brother and then they want to the bar when they had 3 beers after that he noticed that he has more weakness in his left leg as well as his left upper extremity now associated with numbness and paresthesias so he got concerned and decided to come to emergency room. Currently patient says that HIS SYMPTOMS RESOLVED AND HIS LEFT ARM AND LEG CAME BACK TO NORMAL WITH NO MORE WEAKNESS OR NUMBNESS. PATIENT DENIES HEADACHE OR DIZZINESS. NO SLURRED SPEECH OR BLURRED VISION NO CHEST PAIN OR DYSPNEA. NO CHANGE IN URINE OR BOWEL HABITS. NO FEVER. HE DENIES SMOKING. HE DRINKS ALCOHOL OCCASIONALLY. HE DRINKS TWICE A WEEK. NO ILLICIT TRACTS Vitals are stable Has unremarkable labs including CBC, BMP and liver enzymes EKG showing normal sinus rhythm at [address]-T changes CT of the brain: No acute process Patient was given aspirin 324 mg 1 07/13/2022 Patient left-sided weakness improved, no more numbness, no other neurological symptoms Patient is a started on aspirin and Plavix 3 weeks and then stop Plavix and continue with aspirin, this has been explained to the patient in details and he verbalized understanding and acceptance and seated back to me. Risks including but not limited to risk of bleeding are explained for the patient and he verbalized understanding and acceptance Patient aware of his result of MRI showing right basal ganglia stroke. Workup still pending including echocardiogram Because of the workup and monitoring patient will require more than 2 units of hospital stay Objective - Vital Signs Vital signs: Vital Signs Temp 97.8 F 07/13/22 07:00 Pulse 61 07/13/22 08:00 Resp 16 07/13/22 08:00 BP 144/85 07/13/22 07:00 Pulse Ox 99 07/13/22 07:00 FiO2 Intake & Output 07/12/22 07/13/22 07/13/22 18:59 06:59 18:59 Intake Total 236 118 Balance 236 118 Intake: Intake, IV Titration 0 Amount Sodium Chloride 0.9% 1, 0 000 ml @ 20 mls/hr IV . Q24H [facility] Rx#:[id number] Oral 236 118 Other: Voiding Method Toilet Toilet # Voids 2 - Exam GENERAL: The patient is alert and oriented x3, not in any acute distress. Well developed, well nourished. HEENT: Pupils are round and equally reacting to light. EOMI. No scleral icterus. No conjunctival pallor. Normocephalic, atraumatic. No pharyngeal erythema. No thyromegaly. CARDIOVASCULAR: S1 and S2 present. No murmurs, rubs, or gallops. PULMONARY: Chest is clear to auscultation, no wheezing or crackles. ABDOMEN: Soft, nontender, nondistended, normoactive bowel sounds. No palpable organomegaly. MUSCULOSKELETAL: No joint swelling or deformity. EXTREMITIES: No cyanosis, clubbing, or pedal edema. NEUROLOGICAL: Gross neurological examination did not reveal any focal deficits. SKIN: No rashes. no petechiae. - Labs CBC & Chem 7: 07/11/22 16:22 07/11/22 16:22 Labs: Abnormal Lab Results - Last 24 Hours (Table) 07/12/22 Range/Units 10:55 Triglycerides 274.00 H (0.00-149.00) mg/dL Cholesterol 209.00 H (0.00-200.00) mg/dL VLDL Cholesterol, Calc 54.80 H (5.00-40.00) mg/dL Assessment and Plan Assessment: Right basal ganglia acute/subacute infarct with left-sided weakness and numbness which is resolved Hypertension Obesity with BMI of 33.1 Plan: Continue with aspirin Neurology consult Follow-up echocardiogram results Labs and medication were reviewed.. Continue same treatment. Continue with symptomatic treatment. Resume home medication. Monitor labs and vitals. DVT and GI prophylaxis. Further recommendations as per clinical course of the patient DVT prophylaxis: Subcutaneous heparin GI Prophylaxis: Pepcid
[2022-07-14] MEDS: FAMOTIDINE 20 MG/2 ML VIAL IV SCH (08:11)
[2022-07-14] MEDS: CLOPIDOGREL 75 MG TAB PO SCH (08:11)
[2022-07-14] MEDS: THIAMINE 100 MG TAB PO SCH (08:11)
[2022-07-14] MEDS: ASPIRIN 325 MG TAB PO SCH (08:11)
[2022-07-14] MEDS: HEPARIN SODIUM,PORCINE/PF 5,000 UNIT/0.5 ML SYRINGE SQ SCH (08:15)
[2022-07-14 08:45] VITALS: BP 131/74; PULSE 63; RESP 16; TEMP 97.8
--- NOTE | 2022-07-15 00:20 | P.DS ---
Providers Date of admission: 07/11/22 17:18 Attending physician: Howard Agudelo Consults: 07/11/22 17:17 Consult Physician Routine Consulting Provider: Patrick Rojas Consult Reason/Comments: tia Do you want consulting provider notified?: Yes Primary care physician: Ar Oviedo Hospital Course: Diagnoses: Right basal ganglia acute/subacute infarct with left-sided weakness and numbness which is resolved completely upon discharge Hypertension Obesity with BMI of 33.1 Hospital course: This is a pleasant 67 years old male with past medical history of hypertension. Patient presents because of left-sided numbness and weakness Of both arms and legs which are completely resolved Patient remains asymptomatic over the last 48 hours, no new weakness numbness headache dizziness. No blurred vision or slurred speech. No other new symptoms, no change in urine or bowel habits. No fever. No chest pain or dyspnea. Patient evaluated by neurologist. MRI of the brain showing right basal ganglia stroke. Further workup showing echocardiogram with unremarkable abnormality. Carotid duplex showed less than 50% stenosis. Patient wants to go home today Patient was cleared for discharge by neurologist Risk of dual antiplatelet therapy are explained for the patient in details and he is agreeable to continue with them. Also he was instructed clearly to continue with Plavix and aspirin 21 days and then stop Plavix. Continue with aspirin indefinitely, written instruction is also provided to him and he verbalized understanding and acceptance Problems and management plan were discussed with the patient and he verbalized understanding and acceptance Patient was found stable and can be discharged home in guarded prognosis however he needs follow-up as an outpatient. Patient was instructed to follow up with PCP within one week and patient agrees Patient was instructed to follow up with a neurologist in 1-2 weeks, Dr. Weaver is suggested for him Physical exam Gen: patient is a AAOx3, no distress CVS: S1-S2, RRR, no murmur Lungs: B/L CTA, no wheezing Abdomen: soft, no distention, no tenderness, positive bowel sounds Extremity: no leg edema or induration neuro: Cranial nerves are grossly intact. Motor 5/5. Sensation is intact. Gait is normal Time spent more than 35 minutes Patient Condition at Discharge: Fair Plan - Discharge Summary New Discharge Prescriptions: New Atorvastatin [Lipitor] 40 mg PO HS #30 tab Clopidogrel [Plavix] 75 mg PO DAILY 21 Days #21 tab Aspirin 325 mg PO DAILY #30 tab Famotidine [Pepcid] 20 mg PO HS #30 tablet Thiamine [Vitamin B-1] 100 mg PO DAILY #30 tab Continue lisinopriL [Zestril] 20 mg PO DAILY Discharge Medication List lisinopriL [Zestril] 20 mg PO DAILY 07/11/22 [History] Aspirin 325 mg PO DAILY #30 tab 07/14/22 [Rx] Atorvastatin [Lipitor] 40 mg PO HS #30 tab 07/14/22 [Rx] Clopidogrel [Plavix] 75 mg PO DAILY 21 Days #21 tab 07/14/22 [Rx] Famotidine [Pepcid] 20 mg PO HS #30 tablet 07/14/22 [Rx] Thiamine [Vitamin B-1] 100 mg PO DAILY #30 tab 07/14/22 [Rx] Follow up Appointment(s)/Referral(s): Ar Oviedo MD [Primary Care Provider] - 1-2 days Patient Instructions/Handouts: Transient Ischemic Attack (DC), Self Care Measures After a Stroke (GEN) Activity/Diet/Wound Care/Special Instructions: heart healthy diet activity is restricted till you see your doctor we recommend you to continue on dual antiplatelets for 21 days (ASA 325mg daily and Plavix 75mg daily). After 21 days stop Plavix but continue aspirin indefinitely. Discharge Disposition: HOME SELF-CARE
== END 2022-07-14 10:37 | disposition home or self-care (01) ==
LOC: EC 15:23 → 6NMEDSUR 17:18
PROVIDERS: ADMIT Hospitalist; ATTEND Hospitalist
DX: G45.9 Transient cerebral ischemic attack, unspecified (principal); I10 Essential (primary) hypertension; F10.90 Alcohol use, unspecified, uncomplicated; M10.9 Gout, unspecified; F12.90 Cannabis use, unspecified, uncomplicated; E66.9 Obesity, unspecified; Z68.33 Body mass index [BMI] 33.0-33.9, adult; Z79.899 Other long term (current) drug therapy
CPT/HCPCS: 96372 ×3; 96374; 96376; 99285; 36415; 93005; 93306; 97161; 80061; 80048; 84443; 82607; 82746; 85025; 85610; 85730; 80306; 83036; 93880; 70450; 70551; G0378 ×4; G0480; J1644 ×3; 80320

== ENCOUNTER 2022-08-01 00:18 | Inpatient (IN) | payer MEDICARE, OTHER ==
[2022-08-01] MEDS ORDERED: SODIUM CHLORIDE 0.9% 1,000 ML IV STA (01:19)
[2022-08-01] MEDS ORDERED: KETOROLAC 15 MG/ML 1 ML VIAL IVP STA (01:20)
[2022-08-01 02:03] LABS: Basophils # (A) 0.1 k/uL (0-0.2); Basophils % (A) 1 %; Eosinophils # (A) 0.2 k/uL (0-0.7); Eosinophils % (A) 3 %; HCT 48.8 % (39.0-53.0); HGB 16.1 gm/dL (13.0-17.5); Lymphocytes # (A) 1.6 k/uL (1.0-4.8); Lymphocytes % (A) 20 %; MCH 29.9 pg (25.0-35.0); MCHC 33.1 g/dL (31.0-37.0); MCV 90.3 fL (80.0-100.0); Mean Platelet Volume 7.5; Monocytes # (A) 0.4 k/uL (0-1.0); Monocytes % (A) 6 %; Neutrophils # (A) 5.4 k/uL (1.3-7.7); Neutrophils % (A) 70 %; Platelet Count 201 k/uL (150-450); RDW 14.1 % (11.5-15.5); WBC 7.7 k/uL (3.8-10.6)
[2022-08-01] MEDS ORDERED: HYDROmorphone 0.5 MG/0.5 ML SYRINGE IVP STA (02:14)
[2022-08-01 02:15] LABS: ALT 46 U/L (4-49); AST 70 U/L (17-59); African American GFR (CKD) 78 (>60 ml/min/1.73 sqM); Albumin 4.6 g/dL (3.5-5.0); Alkaline Phosphatase 78 U/L (38-126); Anion Gap 11 mmol/L; Blood Urea Nitrogen 16 mg/dL (9-20); Calcium 9.5 mg/dL (8.4-10.2); Carbon Dioxide 29 mmol/L (22-30); Chloride 99 mmol/L (98-107); Glucose 131 mg/dL (74-99); Non-African American GFR(CKD) 68 (>60 ml/min/1.73 sqM); Potassium 5.4 mmol/L (3.5-5.1); Sodium 139 mmol/L (137-145); Total Protein 7.7 g/dL (6.3-8.2)
[2022-08-01] MEDS ORDERED: ONDANSETRON 4 MG/2 ML VIAL IVP STA (02:24)
--- NOTE | 2022-08-01 02:41 | ED ---
Abdominal Pain HPI - General Chief Complaint: Abdominal Pain Stated Complaint: ABD PAIN Time Seen by Provider: 08/01/22 01:20 Source: patient Mode of arrival: ambulatory Limitations: no limitations - History of Present Illness Initial Comments: Patient is a 67-year-old male presenting to the emergency department for abdominal pain. Patient had abrupt onset of upper middle abdominal pain today with radiation to the back. He denies history of pancreatitis although it does note history in his chart. He denies fever and chills. He does have some naus ea no vomiting. No constipation, diarrhea, blood in stool, burning with urination, blood in urine. No chest pain or shortness of breath. - Related Data Home Medications Medication Instructions Recorded Confirmed lisinopriL [Zestril] 20 mg PO DAILY 07/11/22 07/11/22 Previous Rx's Medication Instructions Recorded Aspirin 325 mg PO DAILY #30 tab 07/14/22 Atorvastatin [Lipitor] 40 mg PO HS #30 tab 07/14/22 Clopidogrel [Plavix] 75 mg PO DAILY 21 Days #21 tab 07/14/22 Famotidine [Pepcid] 20 mg PO HS #30 tablet 07/14/22 Thiamine [Vitamin B-1] 100 mg PO DAILY #30 tab 07/14/22 Allergies Allergy/AdvReac Type Severity Reaction Status Date / Time No Known Allergies Allergy Verified 08/01/22 00:22 Review of Systems ROS Statement: Those systems with pertinent positive or pertinent negative responses have been documented in the HPI. ROS Other: All systems not noted in ROS Statement are negative. Past Medical History Past Medical History: CVA/TIA, Hypertension Additional Past Medical History / Comment(s): Gout. History of Any Multi-Drug Resistant Organisms: None Reported Past Surgical History: No Surgical Hx Reported Additional Past Surgical History / Comment(s): Arthroscopy to right ankle. Past Psychological History: No Psychological Hx Reported Smoking Status: Never smoker Past Alcohol Use History: Daily Past Drug Use History: Marijuana General Exam Limitations: no limitations General appearance: alert, in no apparent distress Head exam: Present: atraumatic, normocephalic, normal inspection Respiratory exam: Present: normal lung sounds bilaterally. Absent: respiratory distress, wheezes, rales, rhonchi, stridor Cardiovascular Exam: Present: regular rate, normal rhythm, normal heart sounds. Absent: systolic murmur, diastolic murmur, rubs, gallop, clicks GI/Abdominal exam: Present: soft, tenderness (epigastric), normal bowel sounds. Absent: distended, guarding, rebound, rigid Neurological exam: Present: alert, oriented X3, CN II-XII intact Psychiatric exam: Present: normal affect, normal mood Skin exam: Present: warm, dry, intact, normal color. Absent: rash Course Vital Signs 08/01/22 00:22 Temperature 97.2 F L Pulse Rate 59 L Respiratory 20 Rate Blood Pressure 132/73 O2 Sat by Pulse 98 Oximetry Medical Decision Making - Medical Decision Making EKG taken at 02:31, interpreted by me Sinus bradycardia, left axis deviation No new ST segment or T-wave abnormality Ventricular rate 53, ID interval 157, QRS duration 118, QTC 430 Was pt. sent in by a medical professional or institution (, PA, DRY PRESS OPERATOR HELPER, urgent care, hospital, or halfway...) When possible be specific @ -No Did you speak to anyone other than the patient for history (EMS, parent, family, police, friend...)? What history was obtained from this source @ -No Did you review nursing and triage notes (agree or disagree)? Why? @ -I reviewed and agree with nursing and triage notes Were old charts reviewed (outside hosp., previous admission, EMS record, old EKG, old radiological studies, urgent care reports/EKG's, halfway records)? Report findings @ -No old charts were reviewed Differential Diagnosis (chest pain, altered mental status, abdominal pain women, abdominal pain men, vaginal bleeding, weakness, fever, dyspnea, syncope, headache, dizziness, GI bleed, back pain, seizure, CVA, palpatations, mental health)? @ -Differential Abdominal Pain Men: Appendicitis, cholecystitis, diverticulosis, ischemic bowel, pancreatitis, hepatitis, UTI, gastroenteritis, AAA, incarcerated hernia, bowel obstruction, constipation, inflammatory bowel, hepatitis, peptic ulcer disease, splenic infarction, perforated viscus, testicular torsion, this is not meant to be an all-inclusive list EKG interpreted by me (3pts min.). @ -As above X-rays interpreted by me (1pt min.). @ -None done CT interpreted by me (1pt min.). @ -None done U/S interpreted by me (1pt. min.). @ -None done What testing was considered but not performed or refused? (CT, X-rays, U/S, labs)? Why? @ -None What meds were considered but not given or refused? Why? @ -None Did you discuss the management of the patient with other professionals (professionals i.e. , PA, DRY PRESS OPERATOR HELPER, lab, RT, psych nurse, 7th grade social studies teacher, footwear sales coordinator, teacher, loan review officer, case packer and sealer)? Give summary @ -No Was smoking cessation discussed for >3mins.? @ -No Was critical care preformed (if so, how long)? @ -No Were there social determinants of health that impacted care today? How? (Homelessness, low income, unemployed, alcoholism, drug addiction, transportation, low edu. Level, literacy, decrease access to med. care, fci, r ehab)? @ -No Was there de-escalation of care discussed even if they declined (Discuss DNR or withdrawal of care, Hospice)? DNR status @ -No What co-morbidities impacted this encounter? (DM, HTN, Smoking, COPD, CAD, Cancer, CVA, ARF, Chemo, Hep., AIDS, mental health diagnosis, sleep apnea, morbid obesity)? @ -None Was patient admitted / discharged? Hospital course, mention meds given and route, prescriptions, significant lab abnormalities, going to OR and other pertinent info. @ -Admitted. Patient presenting with pancreatitis lipase is > 20,000. Pain and nausea controlled. CT of the abdomen ordered for rule out pseudocyst however patient declined. Patient care given to Dr. Ram at 4:30 Undiagnosed new problem with uncertain prognosis? @ -No Drug Therapy requiring intensive monitoring for toxicity (Heparin, Nitro, Insulin, Cardizem)? @ -No Were any procedures done? @ -No Diagnosis/symptom? @ -pancreatitis Acute, or Chronic, or Acute on Chronic? @ -acute Uncomplicated (without systemic symptoms) or Complicated (systemic symptoms)? @ -uncomplicated Side effects of treatment? @ -No Exacerbation, Progression, or Severe Exacerbation? @ -No Poses a threat to life or bodily function? How? (Chest pain, [place], [place], pneumonia, PE, COPD, DKA, ARF, appy, cholecystitis, CVA, Diverticulitis, Homicidal, Suicidal, threat to staff... and all critical care pts) @ -No Dr. Ram is my attending - Lab Data Result diagrams: 08/01/22 01:24 08/01/22 01:24 Lab Results 08/01/22 08/01/22 08/01/22 Range/Units 01:24 01:24 01:24 WBC 7.7 (3.8-10.6) k/uL RBC 5.40 (4.30-5.90) m/uL Hgb 16.1 (13.0-17.5) gm/dL Hct 48.8 (39.0-53.0) % MCV 90.3 (80.0-100.0) fL MCH 29.9 (25.0-35.0) pg MCHC 33.1 (31.0-37.0) g/dL RDW 14.1 (11.5-15.5) % Plt Count 201 (150-450) k/uL MPV 7.5 Neutrophils % 70 % Lymphocytes % 20 % Monocytes % 6 % Eosinophils % 3 % Basophils % 1 % Neutrophils # 5.4 (1.3-7.7) k/uL Lymphocytes # 1.6 (1.0-4.8) k/uL Monocytes # 0.4 (0-1.0) k/uL Eosinophils # 0.2 (0-0.7) k/uL Basophils # 0.1 (0-0.2) k/uL Sodium 139 (137-145) mmol/L Potassium 5.4 H (3.5-5.1) mmol/L Chloride 99 (98-107) mmol/L Carbon Dioxide 29 (22-30) mmol/L Anion Gap 11 mmol/L BUN 16 (9-20) mg/dL Creatinine 1.14 (0.66-1.25) mg/dL Est GFR (CKD-EPI)AfAm 78 (>60 ml/min/1.73 sqM) Est GFR (CKD-EPI)NonAf 68 (>60 ml/min/1.73 sqM) Glucose 131 H (74-99) mg/dL Plasma Lactic Acid Hung 1.4 (0.7-2.0) mmol/L Calcium 9.5 (8.4-10.2) mg/dL Total Bilirubin 1.0 (0.2-1.3) mg/dL AST 70 H (17-59) U/L ALT 46 (4-49) U/L Alkaline Phosphatase 78 (38-126) U/L Total Protein 7.7 (6.3-8.2) g/dL Albumin 4.6 (3.5-5.0) g/dL Lipase >23763 H (23-300) U/L Disposition Clinical Impression: Pancreatitis Disposition: ADMITTED IP TO THIS HOSP Condition: Fair
[2022-08-01 03:41] LABS: Lipase >20000 U/L (23-300)
[2022-08-01] MEDS ORDERED: ONDANSETRON 4 MG/2 ML VIAL IVP PRN (03:52)
[2022-08-01] MEDS ORDERED: NALOXONE 0.4 MG/ML 1 ML VIAL IV PRN (03:52)
[2022-08-01] MEDS ORDERED: KETOROLAC 15 MG/ML 1 ML VIAL IVP PRN (03:52)
[2022-08-01] MEDS: SODIUM CHLORIDE 0.9% 1,000 ML IV SCH ×2 (04:04→14:05)
[2022-08-01] MEDS: HYDROmorphone 0.5 MG/0.5 ML SYRINGE IVP PRN ×4 (06:10→16:23)
[2022-08-01] MEDS ORDERED: hydrALAZINE HCL 20 MG/ML 1 ML VIAL IVP STA (09:48)
[2022-08-01 11:04] LABS: African American GFR (CKD) >90 (>60 ml/min/1.73 sqM); Anion Gap 11 mmol/L; Blood Urea Nitrogen 18 mg/dL (9-20); Calcium 8.4 mg/dL (8.4-10.2); Carbon Dioxide 21 mmol/L (22-30); Chloride 104 mmol/L (98-107); Glucose 150 mg/dL (74-99); Non-African American GFR(CKD) >90 (>60 ml/min/1.73 sqM); Potassium 5.2 mmol/L (3.5-5.1); Sodium 136 mmol/L (137-145)
[2022-08-01 11:39] LABS: Lipase 8355 U/L (23-300)
[2022-08-01] MEDS: CLOPIDOGREL 75 MG TAB PO SCH (14:06)
--- NOTE | 2022-08-01 15:40 | P.HPIM ---
History of Present Illness H&P Date: 08/01/22 This is a 67-year-old male who presented to the emergency department with abdominal pain and per ER documentation had sudden onset of upper epigastric abdominal pain that was radiating to his back. Patient reports he was having some nausea and vomiting and came to the ER for further evaluation. Patient follows with Dr. Oviedo in the outpatient setting with a past medical history of hypertension, gout, recent admission last month with CVA. Patient reports he uses marijuana and was a beer drinker although right after the stroke 21 days ago patient quit drinking and smoking. Patient denies any bowel changes. There was a CT abdomen ordered although patient has been refusing reporting he doesn't need that and had a CT of his head on previous admission and does not want to repeat those. Patient EKG showed sinus bradycardia with a heart rate of 53 bpm. Labs revealed a WBC of 7.7, hemoglobin 16.1, sodium 139 with a potassium of 5.4, creatinine 1.14, lactic acid 1.4, total bili 1.0, AST 70, ALT 46, lipase over 20,000 and patient was admitted with acute pancreatitis placed on IV hydration. Blood pressures are elevated and patient normally takes lisinopril although patient extremely nauseated with vomiting will add 1 dose of hydralazine and once improved will resume his lisinopril. Repeat labs this morning show a lipase of 8355 and is continued on fluids and recommend nothing by mouth for bowel rest at this time will follow-up with repeat labs in the a.m. and titrate fluids down. Patient does have pain medications ordered along with Zofran as needed and will cancel CT abdomen and order liver ultrasound. Review Of Systems: Constitutional: No fever, no chills, no night sweats. No weight change. No weakness, fatigue or lethargy. No daytime sleepiness. EENT: No headache. No blurred vision or double vision, no loss of vision. No loss of Hearing, no ringing in the ears, no dizziness. No nasal drainage or congestion. No epistaxis. No sore throat. Lungs: No shortness of breath, cough, no sputum production. No wheezing. Cardiovascular: No chest pain, no lower extremity edema. No palpitations. No paroxysmal nocturnal dyspnea. No orthopnea. No lightheadedness or dizziness. No syncopal episodes. Abdominal: Reports severe abdominal pain. Reports nausea and vomiting. No diarrhea. No constipation. No bloody or tarry stools.. Reports loss of appetite. Genitourinary: No dysuria, increased frequency, urgency. No urinary retention. Musculoskeletal: No myalgias. No muscle weakness, no gait dysfunction, no frequent falls. Reports back pain. No neck pain. Integumentary: No wounds, no lesions. No rash or pruritus. No unusual bruising. No change in hair or nails. Neurologic: No aphasia. No facial droop. No change in mentation. No head injury. No headache. No paralysis. No paresthesia. Psychiatric: No depression. No anxiety. No mood swings. Endocrine: No abnormal blood sugars. No weight change. No excessive sweating or thirst. No cold intolerance. PHYSICAL EXAMINATION: GENERAL: The patient is alert and oriented x4, Well developed, well nourished. Obese HEENT: Pupils are round and equally reacting to light. EOMI. no scleral icterus. No conjunctival pallor. Normocephalic, atraumatic. No pharyngeal erythema. No thyromegaly. CARDIOVASCULAR: S1 and S2 muffled PULMONARY: diminished breath sounds bilaterally with no wheezing or rhonchi noted. ABDOMEN: soft. Tender in the substernal epigastric region on palpation. obese. non-distended, normoactive bowel sounds. No palpable organomegaly. MUSCULOSKELETAL: No joint swelling or deformity. EXTREMITIES: No cyanosis, clubbing, or pedal edema. NEUROLOGICAL: Gross neurological examination did not reveal any focal deficits. SKIN: No rashes. Assessment: Acute pancreatitis Recent history of CVA in June 2022 Previous marijuana use quit 21 days ago Previous alcohol abuse quit 21 days ago Obesity with a BMI of 31.4 History of gout Hypertension GI prophylaxis DVT prophylaxis Full code Plan: Recommend to continue with current medications and management and will continue nothing by mouth for now with bowel rest and continue IV hydration and will titrate down after repeat labs in the a.m. slowly advanced diet as tolerated possibly tomorrow. Repeat lipase significantly improved and patient reports he is feeling slightly hungry today although will await and continue nothing by mouth for now will just IV hydration. Patient reports he had a previous admission in June and had a stroke and quit drinking and using marijuana 21 days ago. Patient is not actively withdrawing and adamantly admits that he has quit drinking. Follow-up labs in the a.m. as patient did have mildly elevated potassium of 5.2 Liver ultrasound ordered and CT abdomen cancel this patient is refusing. If patient is feeling better and able to tolerate diet possible discharge in 24 hours The impression and plan of care has been dictated by Shanelle Woodard, nurse practitioner as directed. Dr. Chacorta MD I have performed a history and examination and MDM of this patient, discussed the same with the dictator, and agree with the dictator's assessment and plan as written ,documented as a scribe. Based on total visit time, I have performed more than 50% of the visit. Any additional findings or plans will be noted. Past Medical History Past Medical History: CVA/TIA, Hypertension Additional Past Medical History / Comment(s): Gout. History of Any Multi-Drug Resistant Organisms: None Reported Past Surgical History: No Surgical Hx Reported Additional Past Surgical History / Comment(s): Arthroscopy to right ankle. Past Psychological History: No Psychological Hx Reported Smoking Status: Never smoker Past Alcohol Use History: Daily Past Drug Use History: Marijuana Medications and Allergies Home Medications Medication Instructions Recorded Confirmed Type lisinopriL [Zestril] 20 mg PO DAILY 07/11/22 08/01/22 History Aspirin 325 mg PO DAILY #30 tab 07/14/22 08/01/22 Rx Atorvastatin [Lipitor] 40 mg PO HS #30 tab 07/14/22 08/01/22 Rx Clopidogrel [Plavix] 75 mg PO DAILY 21 Days #21 tab 07/14/22 08/01/22 Rx Famotidine [Pepcid] 20 mg PO HS #30 tablet 07/14/22 08/01/22 Rx Thiamine [Vitamin B-1] 100 mg PO DAILY #30 tab 07/14/22 08/01/22 Rx Allergies Allergy/AdvReac Type Severity Reaction Status Date / Time No Known Allergies Allergy Verified 08/01/22 08:52 Physical Exam Vitals: Vital Signs Temp Pulse Pulse Resp BP BP Pulse Ox 08/01/22 07:00 98.8 F 75 16 177/100 99 08/01/22 06:07 98.4 F 67 17 186/97 95 08/01/22 05:30 97.8 F 66 20 187/90 97 08/01/22 05:00 97.8 F 66 18 187/90 97 08/01/22 00:22 97.2 F L 59 L 20 132/73 98 Intake and Output 07/31/22 08/01/22 08/01/22 22:59 06:59 14:59 Output Total 50 Balance -50 Output: Emesis 50 Other: Voiding Method Toilet # Voids 1 Weight 99.337 kg Results CBC & Chem 7: 08/01/22 01:24 08/01/22 10:00 Labs: Abnormal Lab Results - Last 24 Hours (Table) 08/01/22 Range/Units 01:24 Potassium 5.4 H (3.5-5.1) mmol/L Glucose 131 H (74-99) mg/dL AST 70 H (17-59) U/L Lipase >50734 H (23-300) U/L Thrombosis Risk Factor Assmnt - DVT/VTE Prophylaxis DVT/VTE Prophylaxis: Mechanical Prophylaxis ordered Assessment and Plan Time with Patient: Greater than 30
--- NOTE | 2022-08-01 16:43 | US ---
EXAMINATION TYPE: US liver DATE OF EXAM: 08/01/2022 Exam done portable COMPARISON: NONE CLINICAL INDICATION: Male, 67 years old with history of abdominal pain, etoh, pancreatitis; Abdomen p ain TECHNIQUE: Multiple sonographic images of the right upper quadrant are obtained. FINDINGS: EXAM MEASUREMENTS: Liver Length: 14.8 cm Gallbladder Wall: 0.2 cm CBD: 0.5 cm Right Kidney: 10.3 x 5.7 x 5.5 cm Pancreas: obscured by overlying midline bowel gas Liver: limited visualization, scanned intercostally, mildly heterogeneous Gallbladder: echogenic shadowing foci within neck Evidence for sonographic Gao's sign: no CBD: visualized portions wnl, limited by overlying bowel gas Right Kidney: wnl Fluid in RUQ IMPRESSION: 1. Small amount of free fluid present. 2. Debris filled gallbladder. Gallstone may be at the neck of the gallbladder with posterior shadowin g.
[2022-08-01] MEDS: PANTOPRAZOLE 40 MG/10 ML VIAL IVP SCH (20:36)
[2022-08-01] MEDS ORDERED: FAMOTIDINE 20 MG TAB PO SCH (21:00)
[2022-08-01] MEDS ORDERED: ATORVASTATIN 40 MG TAB PO SCH (21:00)
[2022-08-02] MEDS: SODIUM CHLORIDE 0.9% 1,000 ML IV SCH ×2 (08:06→21:07)
[2022-08-02] MEDS: HYDROmorphone 0.5 MG/0.5 ML SYRINGE IVP PRN ×2 (08:06→15:52)
[2022-08-02] MEDS ORDERED: lisinopriL 20 MG TAB PO SCH (09:00)
[2022-08-02] MEDS: THIAMINE 100 MG TAB PO SCH (10:32)
[2022-08-02] MEDS: PANTOPRAZOLE 40 MG/10 ML VIAL IVP SCH ×2 (10:32→21:07)
[2022-08-02] MEDS: CLOPIDOGREL 75 MG TAB PO SCH (10:32)
[2022-08-02 11:07] LABS: African American GFR (CKD) 73.1 (60.0-200.0); Anion Gap 14.1 mmol/L (10.00-18.00); BUN/Creat Ratio 15.5 Ratio (12.00-20.00); Blood Urea Nitrogen 18.6 mg/dL (9.0-27.0); Calcium 7.7 mg/dL (8.7-10.3); Carbon Dioxide 18.9 mmol/L (20.0-27.5); Magnesium 1.8 mg/dL (1.5-2.4); Non-African American GFR(CKD) 63.1 (60.0-200.0); Potassium 4.5 mmol/L (3.5-5.5)
[2022-08-02 11:20] LABS: HCT 54.2 % (39.6-50.0); HGB 17.3 g/dL (13.0-17.0); MCH 29.6 pg (27.0-32.0); MCHC 31.9 g/dL (32.0-37.0); MCV 92.6 fL (80.0-97.0); NRBC Per 100 WBC 0 /100 WBCS (0.0-0.0); Platelet Count 102 X 10*3/uL (140-440); RBC 5.85 X 10*6/uL (4.40-5.60); RDW 14.7 % (11.5-14.5); WBC 13.94 X 10*3/uL (4.50-10.00)
[2022-08-02 11:21] LABS: Basophils # (M) 0 X 10*3/uL (0.00-0.10); Eosinophils # (M) 0 X 10*3/uL (0.04-0.35); Lymphocytes # (M) 0.28 X 10*3/uL (0.90-5.00); Metamyelocytes % 5 % (0-0); Monocytes # (M) 0 X 10*3/uL (0.20-1.00); Neutrophils # (M) 12.96 X 10*3/uL (2.00-8.90); Neutrophils % (M) 93 %; RBC Morphology NORMAL
--- NOTE | 2022-08-02 13:32 | P.GSCN ---
History of Present Illness Consult date: 08/02/22 History of present illness: CHIEF COMPLAINT: Abdominal pain HISTORY OF PRESENT ILLNESS: This is a 67-year-old male who presented to the hospital complaints of epigastric abdominal pain radiating to his back. Patient reports symptoms started Friday evening. Patient reports having nausea and did have episodes of vomiting. Patient denies any prior history of pancr eatitis. Patient does have a prior history of alcohol abuse. He quit drinking 21 days ago. He had a recent CVA in June 2022 currently on Plavix. Last dose of Plavix was this morning. Liver ultrasound had shown debris in the gallbladder and stones in the neck of the gallbladder with posterior shadowing. He had significant elevated lipase. Patient admitted to hospital with gallstone pancreatitis. Patient also complaining of lower abdominal pain in the suprapubic region. Medicine service did order a CAT scan however patient refused CAT scan at this time initially was because of pain and also because he reports been claustrophobic. Patient's last colonoscopy was 16 years ago which had shown a benign colon polyp. His last bowel movement was 2 days ago. PAST MEDICAL HISTORY: CVA, hypertension PAST SURGICAL HISTORY: See below MEDICATIONS: See below ALLERGIES: See below SOCIAL HISTORY: No illicit drug use. Previous marijuana and alcohol abuse quit 21 days REVIEW OF SYSTEMS: CONSTITUTIONAL: Denies fever or chills. HEENT: Denies blurred vision, vision changes, or eye pain. Denies hemoptysis CARDIOVASCULAR: Denies chest pain or pressure. RESPIRATORY: No shortness of breath. GASTROINTESTINAL: See HPI for pertinent findings HEMATOLOGIC: Denies bleeding disorders. GENITOURINARY: Denies any blood in urine or increased urinary frequency. SKIN: Denies pruitis. Denies rash. PHYSICAL EXAM: VITAL SIGNS: Reviewed GENERAL: Well-developed in no acute distress. HEENT: No sclera icterus. Extraocular movements grossly intact. Moist buccal mucosa. Head is atraumatic, normocephalic. No nasal drainage. ABDOMEN: Soft. Obese. Nondistended. Right upper quadrant, Epigastric tenderness and tenderness in the suprapubic area NEUROLOGIC: Alert and oriented. Cranial nerves II through XII grossly intact. LABORATORY DATA: WBC 7.7 up to 13.94 Hgb 17.3 platelets 102 Sodium is 140 potassium 4.5 creatinine 1.2 Lactic acid 1.4 Total bilirubin 1.0 AST 70 ALT 46 alk phos 78 Lipase greater than 20,000 down to 955 IMAGING: Liver ultrasound small amount of free fluid present. Debris-filled gallbladder. Gallstone may be at the neck of the gallbladder with posterior shadowing ASSESSMENT: 1. Gallstone pancreatitis 2. Suprapubic tenderness PLAN: -Keep patient nothing by mouth except ice chips -Continue IV fluids -Continue supportive care -Check urinalysis for suprapubic pain -Place Plavix on hold for possible surgical intervention -Further recommendations forthcoming per surgeon Physician Vial Gauger note has been reviewed by physician. Signing provider agrees with the documented findings, assessment, and plan of care. I have personally seen and examined the patient, reviewed the [employer] /PAs history, exam and MDM and agree with the assessment and plan as written. Based on total visit time, I have performed more than 50% of the visit. As above: Patient presents with acute pancreatitis. On ultrasound patient with gallstones. Patient also with history of possibly heavy alcohol use in the past. Denies history of cirrhosis. On exam patient with abdominal distention and diffuse tenderness increase in the upper abdomen. Patient remains tachycardic. Continue IV hydration. Check CT abdomen pelvis with contrast. We'll follow. Past Medical History Past Medical History: CVA/TIA, Hypertension Additional Past Medical History / Comment(s): Gout. History of Any Multi-Drug Resistant Organisms: None Reported Past Surgical History: No Surgical Hx Reported Additional Past Surgical History / Comment(s): Arthroscopy to right ankle. Past Psychological History: No Psychological Hx Reported Smoking Status: Never smoker Past Alcohol Use History: Daily Past Drug Use History: Marijuana Medications and Allergies Home Medications Medication Instructions Recorded Confirmed Type lisinopriL [Zestril] 20 mg PO DAILY 07/11/22 08/01/22 History Aspirin 325 mg PO DAILY #30 tab 07/14/22 08/01/22 Rx Atorvastatin [Lipitor] 40 mg PO HS #30 tab 07/14/22 08/01/22 Rx Clopidogrel [Plavix] 75 mg PO DAILY 21 Days #21 tab 07/14/22 08/01/22 Rx Famotidine [Pepcid] 20 mg PO HS #30 tablet 07/14/22 08/01/22 Rx Thiamine [Vitamin B-1] 100 mg PO DAILY #30 tab 07/14/22 08/01/22 Rx Allergies Allergy/AdvReac Type Severity Reaction Status Date / Time No Known Allergies Allergy Verified 08/01/22 08:52 Surgical - Exam Vital Signs Temp Pulse Resp BP Pulse Ox 97.2 F L 59 L 20 132/73 98 08/01/22 00:22 08/01/22 00:22 08/01/22 00:22 08/01/22 00:22 08/01/22 00:22 Results - Labs 08/02/22 07:01 08/02/22 07:01 Abnormal Lab Results - Last 24 Hours (Table) 08/01/22 08/02/22 08/02/22 Range/Units 10:00 07:01 07:01 WBC 13.94 H (4.50-10.00) X 10*3/uL RBC 5.85 H (4.40-5.60) X 10*6/uL Hgb 17.3 H (13.0-17.0) g/dL Hct 54.2 H (39.6-50.0) % MCHC 31.9 L (32.0-37.0) g/dL RDW 14.7 H (11.5-14.5) % Plt Count 102 L (140-440) X 10*3/uL Plt Count Comment DECREASED A Metamyelocytes % 5 H (0-0) % Neutrophils # (Manual) 12.96 H (2.00-8.90) X 10*3/uL Lymphocytes # (Manual) 0.28 L (0.90-5.00) X 10*3/uL Monocytes # (Manual) 0 L (0.20-1.00) X 10*3/uL Eosinophils # (Manual) 0 L (0.04-0.35) X 10*3/uL Carbon Dioxide 18.9 L (20.0-27.5) mmol/L Glucose 126 H (70-110) mg/dL Calcium 7.7 L (8.7-10.3) mg/dL Lipase 8355 H 955 H (23-300) U/L Diabetes panel 08/02/22 Range/Units 07:01 Sodium 140 (135-145) mmol/L Potassium 4.5 (3.5-5.5) mmol/L Chloride 107 (96-109) mmol/L Carbon Dioxide 18.9 L (20.0-27.5) mmol/L BUN 18.6 (9.0-27.0) mg/dL Creatinine 1.2 (0.6-1.5) mg/dL Glucose 126 H (70-110) mg/dL Calcium 7.7 L (8.7-10.3) mg/dL Calcium panel 08/02/22 Range/Units 07:01 Calcium 7.7 L (8.7-10.3) mg/dL Pituitary panel 08/02/22 Range/Units 07:01 Sodium 140 (135-145) mmol/L Potassium 4.5 (3.5-5.5) mmol/L Chloride 107 (96-109) mmol/L Carbon Dioxide 18.9 L (20.0-27.5) mmol/L BUN 18.6 (9.0-27.0) mg/dL Creatinine 1.2 (0.6-1.5) mg/dL Glucose 126 H (70-110) mg/dL Calcium 7.7 L (8.7-10.3) mg/dL Adrenal panel 08/02/22 Range/Units 07:01 Sodium 140 (135-145) mmol/L Potassium 4.5 (3.5-5.5) mmol/L Chloride 107 (96-109) mmol/L Carbon Dioxide 18.9 L (20.0-27.5) mmol/L BUN 18.6 (9.0-27.0) mg/dL Creatinine 1.2 (0.6-1.5) mg/dL Glucose 126 H (70-110) mg/dL Calcium 7.7 L (8.7-10.3) mg/dL
[2022-08-02 16:22] LABS: Appearance,Urine Clear (Clear); Bilirubin,Urine Negative (Negative); Blood,Urine Large (Negative); Color,Urine Yellow; Glucose,Urine (UA) Negative (Negative); Ketones,Urine 2+ (Negative); Leukocyte Esterase,Urine Negative (Negative); Mucus,Urine Moderate /hpf; Nitrite,Urine Negative (Negative); PH, Urine 5.5 (5.0-8.0); Protein,Urine 2+ (Negative); RBC,Urine 1 /hpf (0-5); Specific Gravity,Urine 1.026 (1.001-1.035); Squamous Epithelial Cell,Urine <1 /hpf (0-4); Urobilinogen,Urine <2.0 mg/dL (<2.0); WBC,Urine 1 /hpf (0-5)
[2022-08-02 17:05] LABS: Albumin 3.5 g/dL (3.8-4.9); Albumin/Globulin Ratio 1.52 (1.60-3.17); Bilirubin, Conjugated 0.98 mg/dL (0.20-0.40); Bilirubin,Unconjugated 0.82 mg/dL (0.20-1.00); Globulin 2.3 g/dL (1.6-3.3); Total Bilirubin 1.8 mg/dL (0.30-1.20); Total Protein 5.8 g/dL (6.2-8.2)
--- NOTE | 2022-08-02 17:39 | P.PN ---
Subjective Progress Note Date: 08/02/22 This is a 67-year-old male who presented to the emergency department with abdominal pain and per ER documentation had sudden onset of upper epigastric abdominal pain that was radiating to his back. Patient reports he was having some nausea and vomiting and came to the ER for further evaluation. Patient f junitos with Dr. Oviedo in the outpatient setting with a past medical history of hypertension, gout, recent admission last month with CVA. Patient reports he uses marijuana and was a beer drinker although right after the stroke 21 days ago patient quit drinking and smoking. Patient denies any bowel changes. There was a CT abdomen ordered although patient has been refusing reporting he doesn't need that and had a CT of his head on previous admission and does not want to repeat those. Patient EKG showed sinus bradycardia with a heart rate of 53 bpm. Labs revealed a WBC of 7.7, hemoglobin 16.1, sodium 139 with a potassium of 5.4, creatinine 1.14, lactic acid 1.4, total bili 1.0, AST 70, ALT 46, lipase over 20,000 and patient was admitted with acute pancreatitis placed on IV hydration. Blood pressures are elevated and patient normally takes lisinopril although patient extremely nauseated with vomiting will add 1 dose of hydralazine and once improved will resume his lisinopril. Repeat labs this morning show a lipase of 8355 and is continued on fluids and recommend nothing by mouth for bowel rest at this time will follow-up with repeat labs in the a.m. and titrate fluids down. Patient does have pain medications ordered along with Zofran as needed and will cancel CT abdomen and order liver ultrasound. 08/02/2022 Patient is evaluated today resting in bed. Continues to report abdominal pain mostly suprapubic. Labs show white count 13.94. Sodium 140, potassium 4.5. Total bilirubin is increased to 1.80 today, AST/ALT elevated, lipase has improved to 955. Patient had liver ultrasound done showing small amount of free fluid, debris filled gallbladder and a gallstone at the neck of the gallbladder with posterior shadowing. General surgery consulted and patient may need surgical intervention. plavix being held. Review of Systems Constitutional: Denied any fatigue denied any fever. Cardio vascular: denied any chest pain, palpitations Gastrointestinal: denied any nausea, vomiting, diarrhea. Has abdominal pain. Pulmonary: Denied any shortness of breath cough Neurologic denied any new focal deficits All inpatient medications were reviewed and appropriate changes in these m edications as dictated in the interval history and assessment and plan. PHYSICAL EXAMINATION: GENERAL: The patient is alert and oriented x4, Well developed, well nourished. Obese HEENT: Pupils are round and equally reacting to light. EOMI. no scleral icterus. No conjunctival pallor. Normocephalic, atraumatic. No pharyngeal erythema. No thyromegaly. CARDIOVASCULAR: S1 and S2 muffled PULMONARY: diminished breath sounds bilaterally with no wheezing or rhonchi noted. ABDOMEN: soft. Tender in the substernal epigastric region on palpation. Patient also has suprapubc tenderness. obese. non-distended, normoactive bowel sounds. No palpable organomegaly. MUSCULOSKELETAL: No joint swelling or deformity. EXTREMITIES: No cyanosis, clubbing, or pedal edema. NEUROLOGICAL: Gross neurological examination did not reveal any focal deficits. SKIN: No rashes. Assessment: Acute gallstone pancreatitis Hyperbilirubinemia Recent history of CVA in June 2022 Previous marijuana use quit 21 days ago Previous alcohol abuse quit 21 days ago Obesity with a BMI of 31.4 History of gout Hypertension GI prophylaxis DVT prophylaxis Full code Plan: CT pancreas ordered General surgery consultation Continue IV fluids NPO except ice chips Plavix being held for possible surgical intervention The impression and plan of care has been dictated by Sade Lopez, Nurse Practitioner as directed. Dr. Chacorta MD I have performed a history and physical examination and medical decision making of this patient, discussed the same with the dictator, and agree with the dictators assessment and plan as written, documented as a scribe. Based on total visit time, I have performed more than 50% of this visit. Objective - Vital Signs Vital signs: Vital Signs Temp 97.3 F L 08/02/22 14:00 Pulse 103 H 08/02/22 14:00 Resp 16 08/02/22 14:00 BP 110/76 08/02/22 14:00 Pulse Ox 91 L 08/02/22 14:00 FiO2 Intake & Output 08/01/22 08/02/22 08/02/22 18:59 06:59 18:59 Output Total 50 Balance -50 Weight 99.337 kg Output: Emesis 50 Other: Voiding Method Toilet # Voids 3 2 2 - Labs CBC & Chem 7: 05/19/23 07:01 08/02/22 07:01 Labs: Abnormal Lab Results - Last 24 Hours (Table) 08/02/22 08/02/22 08/02/22 Range/Units 07:01 07:01 07:01 WBC 13.94 H (4.50-10.00) X 10*3/uL RBC 5.85 H (4.40-5.60) X 10*6/uL Hgb 17.3 H (13.0-17.0) g/dL Hct 54.2 H (39.6-50.0) % MCHC 31.9 L (32.0-37.0) g/dL RDW 14.7 H (11.5-14.5) % Plt Count 102 L (140-440) X 10*3/uL Plt Count Comment DECREASED A Metamyelocytes % 5 H (0-0) % Neutrophils # (Manual) 12.96 H (2.00-8.90) X 10*3/uL Lymphocytes # (Manual) 0.28 L (0.90-5.00) X 10*3/uL Monocytes # (Manual) 0 L (0.20-1.00) X 10*3/uL Eosinophils # (Manual) 0 L (0.04-0.35) X 10*3/uL Carbon Dioxide 18.9 L (20.0-27.5) mmol/L Glucose 126 H (70-110) mg/dL Calcium 7.7 L (8.7-10.3) mg/dL Total Bilirubin 1.80 H (0.30-1.20) mg/dL Conjugated Bilirubin 0.98 H (0.20-0.40) mg/dL AST 356 H (14-35) U/L ALT 262 H (10-49) U/L Total Protein 5.8 L (6.2-8.2) g/dL Albumin 3.5 L (3.8-4.9) g/dL Albumin/Globulin Ratio 1.52 L (1.60-3.17) g/dL Lipase 955 H (14-60) U/L Urine Protein (Negative) Urine Ketones (Negative) Urine Blood (Negative) Urine Mucus (None) /hpf 08/02/22 Range/Units 15:57 WBC (4.50-10.00) X 10*3/uL RBC (4.40-5.60) X 10*6/uL Hgb (13.0-17.0) g/dL Hct (39.6-50.0) % MCHC (32.0-37.0) g/dL RDW (11.5-14.5) % Plt Count (140-440) X 10*3/uL Plt Count Comment Metamyelocytes % (0-0) % Neutrophils # (Manual) (2.00-8.90) X 10*3/uL Lymphocytes # (Manual) (0.90-5.00) X 10*3/uL Monocytes # (Manual) (0.20-1.00) X 10*3/uL Eosinophils # (Manual) (0.04-0.35) X 10*3/uL Carbon Dioxide (20.0-27.5) mmol/L Glucose (70-110) mg/dL Calcium (8.7-10.3) mg/dL Total Bilirubin (0.30-1.20) mg/dL Conjugated Bilirubin (0.20-0.40) mg/dL AST (14-35) U/L ALT (10-49) U/L Total Protein (6.2-8.2) g/dL Albumin (3.8-4.9) g/dL Albumin/Globulin Ratio (1.60-3.17) g/dL Lipase (14-60) U/L Urine Protein 2+ H (Negative) Urine Ketones 2+ H (Negative) Urine Blood Large H (Negative) Urine Mucus Moderate H (None) /hpf Assessment and Plan Time with Patient: Less than 30
--- NOTE | 2022-08-02 17:52 | CT ---
EXAMINATION TYPE: CT pancreas biphase CT DLP: 1636.6 mGycm, Automated exposure control for dose reduction was used. DATE OF EXAM: 08/02/2022 4:56 PM COMPARISON: None CLINICAL INDICATION:Male, 67 years old with history of Pancreatitis; TECHNIQUE: Axial CT of the abdomen. Sagittal and coronal [facility] Contrast used:100 mL of Isovue 370 with IV Contrast, Oral contrast used: None FINDINGS: LOWER CHEST: Streaky atelectasis in the lung bases. ABDOMEN LIVER: Unremarkable GALLBLADDER AND BILE DUCTS: Unremarkable. PANCREAS: Fat stranding changes seen around the pancreas. No organizing fluid collections at this nani e. There is felt to be enhancing pancreatic parenchyma which extends to the tail where there is some areas of parenchyma in the pancreatic tail which does not definitively enhance. 7 image 78 and series 3 image 72 and more distally in distal portion of pancreatic tail on series 7 image 94. No peripancr eatic fluid collections at this time there is reactive suspected fluid throughout the abdomen. SPLEEN: Unremarkable. ADRENAL GLANDS: Unremarkable. KIDNEYS AND URETERS: No evidence of hydronephrosis or renal calculus. The ureters are unremarkable. STOMACH AND BOWEL: No evidence of bowel obstruction. Scattered colonic diverticula are present. Layer ing debris is seen within the esophagus. PERITONEUM/RETROPERITONEUM: No evidence of pneumoperitoneum. Small amount of free fluid on the liver. VASCULATURE: No evidence of aortic aneurysm. No evidence for pseudoaneurysm. Visualized vasculature a ppears patent without evidence of thrombus. MUSCULOSKELETAL: No acute osseous abnormalities LYMPH NODES: No gross evidence for lymphadenopathy. SOFT TISSUE/ABDOMINAL WALL: Unremarkable IMPRESSION: 1. Findings compatible with pancreatitis with small amount of intra-abdominal free fluid likely reac tive. There are 2 areas within the pancreatic tail that do not definitively enhance. Findings could r epresent necrotizing pancreatitis. Underlying mass not entirely excluded on this single exam alone. A ttention on imaging after resolution of symptoms. 2. Layering debris within the esophagus correlate for reflux versus esophageal dysmotility. 3. Colonic diverticulosis.
--- NOTE | 2022-08-02 18:49 | XR ---
EXAMINATION TYPE: XR chest 2V DATE OF EXAM: 08/02/2022 6:09 PM COMPARISON: None TECHNIQUE: XR chest 2V Frontal and lateral views of the chest. CLINICAL INDICATION:Male, 67 years old with history of hypoxia; FINDINGS: Lungs/Pleura: No evidence of focal consolidation or pneumothorax. Blunting of the costophrenic angles is present. Pulmonary vascularity: Pulmonary vascular congestion. Heart/mediastinum: Cardiomediastinal silhouette is enlarged and stable. Musculoskeletal: No acute osseous pathology. IMPRESSION: Cardiomegaly, pulmonary vascular congestion and bilateral pleural effusions. Correlate with BNP for c ongestive heart failure.
[2022-08-03] MEDS ORDERED: ACETAMINOPHEN IV (For NPO) 1,000 MG in EMPTY BAG 1 BAG IVPB PRN (01:24)
[2022-08-03] MEDS: PIPERACILLIN-TAZOBACTAM 3.375 GM in SODIUM CHLORIDE 0.9% 100 ML IVPB SCH ×3 (01:55→17:05)
[2022-08-03] MEDS: SODIUM CHLORIDE 0.9% 1,000 ML IV SCH ×2 (06:46→16:53)
[2022-08-03] MEDS: PANTOPRAZOLE 40 MG/10 ML VIAL IVP SCH ×2 (08:28→20:35)
[2022-08-03] MEDS: THIAMINE 100 MG TAB PO SCH (08:28)
[2022-08-03] MEDS: HYDROmorphone 0.5 MG/0.5 ML SYRINGE IVP PRN ×3 (08:35→20:35)
[2022-08-03 09:52] LABS: HCT 47.9 % (39.6-50.0); HGB 15.4 g/dL (13.0-17.0); MCH 29.5 pg (27.0-32.0); MCHC 32.2 g/dL (32.0-37.0); MCV 91.8 fL (80.0-97.0); Mean Platelet Volume 11.5 fL (9.5-12.2); NRBC Per 100 WBC 0 /100 WBCS (0.0-0.0); Platelet Count 114 X 10*3/uL (140-440); RBC 5.22 X 10*6/uL (4.40-5.60); RDW 14.7 % (11.5-14.5); WBC 15.27 X 10*3/uL (4.50-10.00)
[2022-08-03 10:11] LABS: Magnesium 1.8 mg/dL (1.5-2.4)
[2022-08-03 10:56] LABS: African American GFR (CKD) 91.1 (60.0-200.0); Albumin 2.9 g/dL (3.8-4.9); Albumin/Globulin Ratio 1.38 (1.60-3.17); Anion Gap 10.9 mmol/L (10.00-18.00); Calcium 7.3 mg/dL (8.7-10.3); Carbon Dioxide 21.1 mmol/L (20.0-27.5); Globulin 2.1 g/dL (1.6-3.3); Non-African American GFR(CKD) 78.6 (60.0-200.0); Potassium 4.1 mmol/L (3.5-5.5); Total Bilirubin 1.5 mg/dL (0.30-1.20)
--- NOTE | 2022-08-03 11:39 | P.PN ---
Subjective Progress Note Date: 08/03/22 This is a 67-year-old male who presented to the emergency department with abdominal pain and per ER documentation had sudden onset of upper epigastric abdominal pain that was radiating to his back. Patient reports he was having some nausea and vomiting and came to the ER for further evaluation. Patient f junitos with Dr. Oviedo in the outpatient setting with a past medical history of hypertension, gout, recent admission last month with CVA. Patient reports he uses marijuana and was a beer drinker although right after the stroke 21 days ago patient quit drinking and smoking. Patient denies any bowel changes. There was a CT abdomen ordered although patient has been refusing reporting he doesn't need that and had a CT of his head on previous admission and does not want to repeat those. Patient EKG showed sinus bradycardia with a heart rate of 53 bpm. Labs revealed a WBC of 7.7, hemoglobin 16.1, sodium 139 with a potassium of 5.4, creatinine 1.14, lactic acid 1.4, total bili 1.0, AST 70, ALT 46, lipase over 20,000 and patient was admitted with acute pancreatitis placed on IV hydration. Blood pressures are elevated and patient normally takes lisinopril although patient extremely nauseated with vomiting will add 1 dose of hydralazine and once improved will resume his lisinopril. Repeat labs this morning show a lipase of 8355 and is continued on fluids and recommend nothing by mouth for bowel rest at this time will follow-up with repeat labs in the a.m. and titrate fluids down. Patient does have pain medications ordered along with Zofran as needed and will cancel CT abdomen and order liver ultrasound. 08/02/2022 Patient is evaluated today resting in bed. Continues to report abdominal pain mostly suprapubic. Labs show white count 13.94. Sodium 140, potassium 4.5. Total bilirubin is increased to 1.80 today, AST/ALT elevated, lipase has improved to 955. Patient had liver ultrasound done showing small amount of free fluid, debris filled gallbladder and a gallstone at the neck of the gallbladder with posterior shadowing. General surgery consulted and patient may need surgical intervention. plavix being held. 08/03/2022 Patient is evaluated on medical floor. Had pancreas CT done showing pancreatitis with small amount of intra abdominal free fluid likely reactive. There are 2 areas within the pancreatic tail that do not definitively enhance. Findings could represent necrotizing pancreatitis. Underlying mass not entirely excluded on this exam alone. Attention on imaging after resolution of symptoms. Layering debris within the esophagus correlate for reflux versus esophageal dysmotility. Colonic diverticulosis. Patient has increasing elevated LFT's with total bilirubin 1.80, AST 356, ALT 262. Patient is started on IV zosyn and ID has been consulted. Today LFTs are slightly decreased and lipase has improved to 451. Pulse ox had dropped yesterday and chest xray is done revealing cardiomegaly, pulmonary vascular congestion and bilateral pleural effusions, proBNP was done and elevated at 3870. Procalcitonin level is 1.22. Blood cultures are taken. Diet is being advanced to clear liquid per general surgery. Noted that patient had an echocardiogram done back in June showing an EF of 50% with mild mitral regurgitation, mild to moderate tricuspid regurgitation. Review of Systems Constitutional: Denied any fatigue Reports fever. Cardio vascular: denied any chest pain, palpitations Gastrointestinal: denied any nausea, vomiting, diarrhea. Has abdominal pain. Pulmonary: Denied any shortness of breath cough Neurologic denied any new focal deficits All inpatient medications were reviewed and appropriate changes in these medications as dictated in the interval history and assessment and plan. PHYSICAL EXAMINATION: GENERAL: The patient is alert and oriented x4, Well developed, well nourished. Obese HEENT: Pupils are round and equally reacting to light. EOMI. no scleral icterus. No conjunctival pallor. Normocephalic, atraumatic. No pharyngeal erythema. No thyromegaly. CARDIOVASCULAR: S1 and S2 muffled PULMONARY: diminished breath sounds bilaterally with no wheezing or rhonchi noted. ABDOMEN: soft. Tender in the substernal epigastric region on palpation. Patient also has suprapubc tenderness. obese. non-distended, normoactive bowel sounds. No palpable organomegaly. MUSCULOSKELETAL: No joint swelling or deformity. EXTREMITIES: No cyanosis, clubbing, or pedal edema. NEUROLOGICAL: Gross neurological examination did not reveal any focal deficits. SKIN: No rashes. Assessment: Acute gallstone pancreatitis with possible necrotizing pancreatitis per imaging Sepsis secondary to above Hyperbilirubinemia and elevated LFTs Mild acute heart failure exacerbation EF of 50% with mild to mod TR. Recent history of CVA in June 2022 which plavix is currently being held. Previous marijuana use quit 21 days ago Previous alcohol abuse quit 21 days ago Obesity with a BMI of 31.4 History of gout Hypertension GI prophylaxis DVT prophylaxis Full code Plan: General surgery consultation Continue IV fluids Diet advanced to clear liquid Plavix being held for possible surgical intervention recommend to resume as soon as possible due to recent stroke last month. Monitor closely and decrease IV fluids to 75 mls/hr. Infectious disease consultation patient is started on IV antibiotics Follow up AM labs The impression and plan of care has been dictated by Sade Lopez, Nurse Practitioner as directed. Dr. Magnus MD I have performed a history and physical examination and medical decision making of this patient, discussed the same with the dictator, and agree with the dictators assessment and plan as written, documented as a scribe. Based on total visit time, I have performed more than 50% of this visit. Objective - Vital Signs Vital signs: Vital Signs Temp 98.2 F 08/03/22 07:08 Pulse 86 08/03/22 08:00 Resp 19 08/03/22 08:00 BP 182/75 08/03/22 07:08 Pulse Ox 96 08/03/22 07:08 FiO2 Intake & Output 08/02/22 08/03/22 08/03/22 18:59 06:59 18:59 Other: Voiding Method Toilet Toilet # Voids 2 2 - Labs CBC & Chem 7: 08/03/22 03:28 08/03/22 03:28 Labs: Abnormal Lab Results - Last 24 Hours (Table) 08/02/22 08/02/22 08/02/22 Range/Units 07:01 07:01 15:57 WBC (4.50-10.00) X 10*3/uL RDW (11.5-14.5) % Plt Count (140-440) X 10*3/uL Carbon Dioxide 18.9 L (20.0-27.5) mmol/L Glucose 126 H (70-110) mg/dL Calcium 7.7 L (8.7-10.3) mg/dL Total Bilirubin 1.80 H (0.30-1.20) mg/dL Conjugated Bilirubin 0.98 H (0.20-0.40) mg/dL AST 356 H (14-35) U/L ALT 262 H (10-49) U/L Total Protein 5.8 L (6.2-8.2) g/dL Albumin 3.5 L (3.8-4.9) g/dL Albumin/Globulin Ratio 1.52 L (1.60-3.17) g/dL Lipase 955 H (14-60) U/L Procalcitonin (0.02-0.09) ng/mL Urine Protein 2+ H (Negative) Urine Ketones 2+ H (Negative) Urine Blood Large H (Negative) Urine Mucus Moderate H (None) /hpf 08/03/22 08/03/22 08/03/22 Range/Units 03:28 03:28 03:28 WBC 15.27 H (4.50-10.00) X 10*3/uL RDW 14.7 H (11.5-14.5) % Plt Count 114 L (140-440) X 10*3/uL Carbon Dioxide (20.0-27.5) mmol/L Glucose 133 H (70-110) mg/dL Calcium 7.3 L (8.7-10.3) mg/dL Total Bilirubin 1.50 H (0.30-1.20) mg/dL Conjugated Bilirubin (0.20-0.40) mg/dL AST 203 H (14-35) U/L ALT 176 H (10-49) U/L Total Protein 5.0 L (6.2-8.2) g/dL Albumin 2.9 L (3.8-4.9) g/dL Albumin/Globulin Ratio 1.38 L (1.60-3.17) g/dL Lipase 451 H (14-60) U/L Procalcitonin 1.22 H (0.02-0.09) ng/mL Urine Protein (Negative) Urine Ketones (Negative) Urine Blood (Negative) Urine Mucus (None) /hpf Assessment and Plan Time with Patient: Less than 30
--- NOTE | 2022-08-03 12:03 | P.PN ---
Subjective Progress Note Date: 08/03/22 Principal diagnosis: Pancreatitis Patient says he feels better today. He did have his CAT scan performed last night. This was reviewed. Inflammatory changes with some free fluid is seen. 2 areas near the tail of the pancreas show questionable enhancement. No abscess or large pseudocyst is seen. His numbers overall are improved. He is afebrile. He was made nothing by mouth. Objective - Vital Signs Vital signs: Vital Signs Temp 98.2 F 08/03/22 07:08 Pulse 86 08/03/22 08:00 Resp 19 08/03/22 08:00 BP 182/75 08/03/22 07:08 Pulse Ox 96 08/03/22 07:08 FiO2 Intake & Output 08/02/22 08/03/22 08/03/22 18:59 06:59 18:59 Other: Voiding Method Toilet Toilet # Voids 2 2 - Exam Abdomen: Soft, less distended, still with diffuse tenderness increase in the epigastrium although improved from yesterday - Labs CBC & Chem 7: 08/03/22 03:28 08/03/22 03:28 Labs: Abnormal Lab Results - Last 24 Hours (Table) 08/02/22 08/02/22 08/03/22 Range/Units 07:01 15:57 03:28 WBC 15.27 H (4.50-10.00) X 10*3/uL RDW 14.7 H (11.5-14.5) % Plt Count 114 L (140-440) X 10*3/uL Glucose (70-110) mg/dL Calcium (8.7-10.3) mg/dL Total Bilirubin 1.80 H (0.30-1.20) mg/dL Conjugated Bilirubin 0.98 H (0.20-0.40) mg/dL AST 356 H (14-35) U/L ALT 262 H (10-49) U/L Total Protein 5.8 L (6.2-8.2) g/dL Albumin 3.5 L (3.8-4.9) g/dL Albumin/Globulin Ratio 1.52 L (1.60-3.17) g/dL Lipase (14-60) U/L Procalcitonin (0.02-0.09) ng/mL Urine Protein 2+ H (Negative) Urine Ketones 2+ H (Negative) Urine Blood Large H (Negative) Urine Mucus Moderate H (None) /hpf 08/03/22 08/03/22 Range/Units 03:28 03:28 WBC (4.50-10.00) X 10*3/uL RDW (11.5-14.5) % Plt Count (140-440) X 10*3/uL Glucose 133 H (70-110) mg/dL Calcium 7.3 L (8.7-10.3) mg/dL Total Bilirubin 1.50 H (0.30-1.20) mg/dL Conjugated Bilirubin (0.20-0.40) mg/dL AST 203 H (14-35) U/L ALT 176 H (10-49) U/L Total Protein 5.0 L (6.2-8.2) g/dL Albumin 2.9 L (3.8-4.9) g/dL Albumin/Globulin Ratio 1.38 L (1.60-3.17) g/dL Lipase 451 H (14-60) U/L Procalcitonin 1.22 H (0.02-0.09) ng/mL Urine Protein (Negative) Urine Ketones (Negative) Urine Blood (Negative) Urine Mucus (None) /hpf Assessment and Plan (1) Pancreatitis Narrative/Plan: 67-year-old male with pancreatitis. CAT scan findings reviewed with the patient and showed 2 areas of questionable enhancement. No surgical intervention required at this point. Patient eventually will likely need to proceed with laparoscopic cholecystectomy although it is difficult to say whether this current episode of pancreatitis was related to alcohol use or gallstones. May resume clear liquids. Antibiotics per infectious disease. Follow-up Current Visit: Yes Status: Acute Code(s): K85.90 - ACUTE PANCREATITIS WITHOUT NECROSIS OR INFECTION, UNSP SNOMED Code(s): 07123089
[2022-08-03 12:31] LABS: Basophils # (M) 0 X 10*3/uL (0.00-0.10); Eosinophils # (M) 0 X 10*3/uL (0.04-0.35); Lymphocytes # (M) 0.46 X 10*3/uL (0.90-5.00); Monocytes # (M) 1.99 X 10*3/uL (0.20-1.00); Neutrophils # (M) 12.83 X 10*3/uL (2.00-8.90); Neutrophils % (M) 84 %
--- NOTE | 2022-08-03 22:00 | P.CONS ---
History of Present Illness - Reason for Consult Consult date: 08/03/22 Necrotizing pancreatitis Requesting physician: Sade Lopez - Chief Complaint Abdominal pain x few days - History of Present Illness Patient is a 67-year-old male with a past medical history significant for CVA TIA hypertension presenting to the ER 2 days ago for abdominal pain pain was sudden onset and mostly involving the upper abdomen epigastric area with some radiation to the back patient was describing the pain to be sharp almost 10-10 in severity has associated nausea and vomiting with it patient on presentation to the hospital was afebrile however he did spike a fever 100.7 last night patient no did have some tachycardia elevated no hypotension patient did have a normal white initially however the white count is up to 15.27 today with left shift creatinine has been normal liver exams are elevated urine is negative patient did have a liver ultrasound small amount of free fluid present diabetes failure gallbladder gallstone may be neck of the gallbladder with posterior shadowing patient also have a CT of the pancreas findings compatible with pancreatitis with small amount of intra abdominal free fluid likely reactive patient has been started on Zosyn infectious was consulted today concern for gallstone pancreatitis patient has been evaluated by general surgery with plan for medical treatment at this point to resolution of his acute inflammation/pancreatitis Review of Systems Positive point and negatives has been mentioned in the HPI, complete review of systems was performed and all other systems are negative Past Medical History Past Medical History: CVA/TIA, Hypertension Additional Past Medical History / Comment(s): Gout. History of Any Multi-Drug Resistant Organisms: None Reported Past Surgical History: No Surgical Hx Reported Additional Past Surgical History / Comment(s): Arthroscopy to right ankle. Past Psychological History: No Psychological Hx Reported Smoking Status: Never smoker Past Alcohol Use History: Daily Past Drug Use History: Marijuana Medications and Allergies Home Medications Medication Instructions Recorded Confirmed Type lisinopriL [Zestril] 20 mg PO DAILY 07/11/22 08/01/22 History Atorvastatin [Lipitor] 40 mg PO HS #30 tab 07/14/22 08/01/22 Rx Clopidogrel [Plavix] 75 mg PO DAILY 21 Days #21 tab 07/14/22 08/01/22 Rx Famotidine [Pepcid] 20 mg PO HS #30 tablet 07/14/22 08/01/22 Rx Thiamine [Vitamin B-1] 100 mg PO DAILY #30 tab 07/14/22 08/01/22 Rx Acetaminophen Tab [Tylenol Tab] 500 mg PO Q6H PRN #30 tablet 08/07/22 Rx Amoxic-Pot Clav 875-125Mg 1 tab PO BID 10 Days #20 tab 08/07/22 Rx [Augmentin 875-125] Pantoprazole Sodium [Protonix] 40 mg PO DAILY #30 tab 08/07/22 Rx Allergies Allergy/AdvReac Type Severity Reaction Status Date / Time No Known Allergies Allergy Verified 08/01/22 08:52 Physical Exam Vitals: Vital Signs Temp Pulse Resp BP Pulse Ox 08/03/22 08:00 86 19 08/03/22 07:08 98.2 F 86 19 182/75 96 08/03/22 00:02 98.3 F 102 H 19 128/80 90 L 08/02/22 21:07 106 H 19 08/02/22 21:06 100.7 F H 106 H 19 123/79 90 L 08/02/22 14:00 97.3 F L 103 H 16 110/76 91 L Intake and Output 08/02/22 08/03/22 08/03/22 22:59 06:59 14:59 Other: Voiding Method Toilet Toilet # Voids 2 2 GENERAL DESCRIPTION: Elderly male lying in bed, no distress. No tachypnea or accessory muscle of respiration use. HEENT: Shows Pallor , no scleral icterus. Oral mucous membrane is dry. No pharyngeal erythema or thrush NECK: Trachea central, no thyromegaly. LUNGS: Unlabored breathing. Clear to auscultation anteriorly. No wheeze or crackle. HEART: S1, S2, regular rate and rhythm. No loud murmur ABDOMEN: Soft, epigastric tenderness , EXTREMITIES: No edema of feet. SKIN: No rash, no masses palpable. NEUROLOGICAL: The patient is awake, alert, oriented x3, mood and affect normal. Results CBC & Chem 7: 08/07/22 05:46 08/07/22 05:46 Labs: Abnormal Lab Results - Last 24 Hours (Table) 08/02/22 08/02/22 08/02/22 Range/Units 07:01 07:01 07:01 WBC 13.94 H (4.50-10.00) X 10*3/uL RBC 5.85 H (4.40-5.60) X 10*6/uL Hgb 17.3 H (13.0-17.0) g/dL Hct 54.2 H (39.6-50.0) % MCHC 31.9 L (32.0-37.0) g/dL RDW 14.7 H (11.5-14.5) % Plt Count 102 L (140-440) X 10*3/uL Plt Count Comment DECREASED A Metamyelocytes % 5 H (0-0) % Neutrophils # (Manual) 12.96 H (2.00-8.90) X 10*3/uL Lymphocytes # (Manual) 0.28 L (0.90-5.00) X 10*3/uL Monocytes # (Manual) 0 L (0.20-1.00) X 10*3/uL Eosinophils # (Manual) 0 L (0.04-0.35) X 10*3/uL Carbon Dioxide 18.9 L (20.0-27.5) mmol/L Glucose 126 H (70-110) mg/dL Calcium 7.7 L (8.7-10.3) mg/dL Total Bilirubin 1.80 H (0.30-1.20) mg/dL Conjugated Bilirubin 0.98 H (0.20-0.40) mg/dL AST 356 H (14-35) U/L ALT 262 H (10-49) U/L Total Protein 5.8 L (6.2-8.2) g/dL Albumin 3.5 L (3.8-4.9) g/dL Albumin/Globulin Ratio 1.52 L (1.60-3.17) g/dL Lipase 955 H (14-60) U/L Procalcitonin (0.02-0.09) ng/mL Urine Protein (Negative) Urine Ketones (Negative) Urine Blood (Negative) Urine Mucus (None) /hpf 08/02/22 08/03/22 08/03/22 Range/Units 15:57 03:28 03:28 WBC 15.27 H (4.50-10.00) X 10*3/uL RBC (4.40-5.60) X 10*6/uL Hgb (13.0-17.0) g/dL Hct (39.6-50.0) % MCHC (32.0-37.0) g/dL RDW 14.7 H (11.5-14.5) % Plt Count 114 L (140-440) X 10*3/uL Plt Count Comment Metamyelocytes % (0-0) % Neutrophils # (Manual) (2.00-8.90) X 10*3/uL Lymphocytes # (Manual) (0.90-5.00) X 10*3/uL Monocytes # (Manual) (0.20-1.00) X 10*3/uL Eosinophils # (Manual) (0.04-0.35) X 10*3/uL Carbon Dioxide (20.0-27.5) mmol/L Glucose 133 H (70-110) mg/dL Calcium 7.3 L (8.7-10.3) mg/dL Total Bilirubin 1.50 H (0.30-1.20) mg/dL Conjugated Bilirubin (0.20-0.40) mg/dL AST 203 H (14-35) U/L ALT 176 H (10-49) U/L Total Protein 5.0 L (6.2-8.2) g/dL Albumin 2.9 L (3.8-4.9) g/dL Albumin/Globulin Ratio 1.38 L (1.60-3.17) g/dL Lipase 451 H (14-60) U/L Procalcitonin (0.02-0.09) ng/mL Urine Protein 2+ H (Negative) Urine Ketones 2+ H (Negative) Urine Blood Large H (Negative) Urine Mucus Moderate H (None) /hpf 08/03/22 Range/Units 03:28 WBC (4.50-10.00) X 10*3/uL RBC (4.40-5.60) X 10*6/uL Hgb (13.0-17.0) g/dL Hct (39.6-50.0) % MCHC (32.0-37.0) g/dL RDW (11.5-14.5) % Plt Count (140-440) X 10*3/uL Plt Count Comment Metamyelocytes % (0-0) % Neutrophils # (Manual) (2.00-8.90) X 10*3/uL Lymphocytes # (Manual) (0.90-5.00) X 10*3/uL Monocytes # (Manual) (0.20-1.00) X 10*3/uL Eosinophils # (Manual) (0.04-0.35) X 10*3/uL Carbon Dioxide (20.0-27.5) mmol/L Glucose (70-110) mg/dL Calcium (8.7-10.3) mg/dL Total Bilirubin (0.30-1.20) mg/dL Conjugated Bilirubin (0.20-0.40) mg/dL AST (14-35) U/L ALT (10-49) U/L Total Protein (6.2-8.2) g/dL Albumin (3.8-4.9) g/dL Albumin/Globulin Ratio (1.60-3.17) g/dL Lipase (14-60) U/L Procalcitonin 1.22 H (0.02-0.09) ng/mL Urine Protein (Negative) Urine Ketones (Negative) Urine Blood (Negative) Urine Mucus (None) /hpf Assessment and Plan (1) Gallstone pancreatitis Status: Acute Code(s): K85.10 - BILIARY ACUTE PANCREATITIS WITHOUT NECROSIS OR INFECTION SNOMED Code(s): 02164673 (2) Leukocytosis Status: Acute Code(s): D72.829 - ELEVATED WHITE BLOOD CELL COUNT, UNSPECIFIED SNOMED Code(s): 371506697 Plan: 1patient presented to the hospital with sepsis in this patient with a fever elevated white count source with likely gallstone pancreatitis with significant formation of the gallbladder seen only ultrasound and will need to call for the enteric gram-negative to be the likely pathogen 2-patient to continue Zosyn 3.375 every 8 hours 3-bowel rest We will follow on clinical condition and cultures to further adjust medication if needed Thank you for this consultation we will follow the patient along with you Time with Patient: Greater than 30
[2022-08-04] MEDS: SODIUM CHLORIDE 0.9% 1,000 ML IV SCH ×2 (01:56→11:27)
[2022-08-04] MEDS: PIPERACILLIN-TAZOBACTAM 3.375 GM in SODIUM CHLORIDE 0.9% 100 ML IVPB SCH ×3 (01:56→17:17)
[2022-08-04] MEDS: HYDROmorphone 0.5 MG/0.5 ML SYRINGE IVP PRN ×4 (02:35→17:17)
[2022-08-04] MEDS: THIAMINE 100 MG TAB PO SCH (07:44)
[2022-08-04] MEDS: PANTOPRAZOLE 40 MG/10 ML VIAL IVP SCH ×2 (07:44→20:45)
[2022-08-04 10:46] LABS: Magnesium 2.2 mg/dL (1.5-2.4)
--- NOTE | 2022-08-04 11:05 | P.PN ---
Subjective Progress Note Date: 08/04/22 Principal diagnosis: Pancreatitis Patient is doing better. Says his pain is improved. T-max 99.4. Labs are pending today. No nausea or vomiting. Tolerating clear liquids. Objective - Vital Signs Vital signs: Vital Signs Temp 97.6 F 08/04/22 08:00 Pulse 87 08/04/22 08:00 Resp 18 08/04/22 08:00 BP 150/84 08/04/22 08:00 Pulse Ox 96 08/04/22 08:00 FiO2 Intake & Output 08/03/22 08/04/22 08/04/22 18:59 06:59 18:59 Intake Total 118 Balance 118 Intake: Oral 118 Other: Voiding Method Toilet Toilet Toilet # Voids 3 2 0 # Bowel Movements 1 - Exam Abdomen: Soft, mild distention, significant and less tenderness, no rebound or guarding - Labs CBC & Chem 7: 08/03/22 03:28 08/03/22 03:28 Labs: Abnormal Lab Results - Last 24 Hours (Table) 08/03/22 Range/Units 03:28 Plt Count Comment DECREASED A Neutrophils # (Manual) 12.83 H (2.00-8.90) X 10*3/uL Lymphocytes # (Manual) 0.46 L (0.90-5.00) X 10*3/uL Monocytes # (Manual) 1.99 H (0.20-1.00) X 10*3/uL Eosinophils # (Manual) 0 L (0.04-0.35) X 10*3/uL Assessment and Plan (1) Pancreatitis Narrative/Plan: Patient doing better today. Continue clear liquids. Await morning labs. Current Visit: Yes Status: Acute Code(s): K85.90 - ACUTE PANCREATITIS WITHOUT NECROSIS OR INFECTION, UNSP SNOMED Code(s): 62661485
[2022-08-04] MEDS: lisinopriL 20 MG TAB PO SCH (11:26)
[2022-08-04 11:47] LABS: Albumin 2.7 g/dL (3.8-4.9); Albumin/Globulin Ratio 1.28 (1.60-3.17); Anion Gap 7.9 mmol/L (10.00-18.00); BUN/Creat Ratio 12.53 Ratio (12.00-20.00); Blood Urea Nitrogen 12.1 mg/dL (9.0-27.0); Calcium 7.5 mg/dL (8.7-10.3); Carbon Dioxide 25.1 mmol/L (20.0-27.5); Globulin 2.1 g/dL (1.6-3.3); Potassium 4.7 mmol/L (3.5-5.5); Total Bilirubin 1.3 mg/dL (0.30-1.20); Total Protein 4.8 g/dL (6.2-8.2)
--- NOTE | 2022-08-04 14:33 | P.PN ---
Subjective Progress Note Date: 08/04/22 This is a 67-year-old male who presented to the emergency department with abdominal pain and per ER documentation had sudden onset of upper epigastric abdominal pain that was radiating to his back. Patient reports he was having some nausea and vomiting and came to the ER for further evaluation. Patient f junitos with Dr. Oviedo in the outpatient setting with a past medical history of hypertension, gout, recent admission last month with CVA. Patient reports he uses marijuana and was a beer drinker although right after the stroke 21 days ago patient quit drinking and smoking. Patient denies any bowel changes. There was a CT abdomen ordered although patient has been refusing reporting he doesn't need that and had a CT of his head on previous admission and does not want to repeat those. Patient EKG showed sinus bradycardia with a heart rate of 53 bpm. Labs revealed a WBC of 7.7, hemoglobin 16.1, sodium 139 with a potassium of 5.4, creatinine 1.14, lactic acid 1.4, total bili 1.0, AST 70, ALT 46, lipase over 20,000 and patient was admitted with acute pancreatitis placed on IV hydration. Blood pressures are elevated and patient normally takes lisinopril although patient extremely nauseated with vomiting will add 1 dose of hydralazine and once improved will resume his lisinopril. Repeat labs this morning show a lipase of 8355 and is continued on fluids and recommend nothing by mouth for bowel rest at this time will follow-up with repeat labs in the a.m. and titrate fluids down. Patient does have pain medications ordered along with Zofran as needed and will cancel CT abdomen and order liver ultrasound. 08/02/2022 Patient is evaluated today resting in bed. Continues to report abdominal pain mostly suprapubic. Labs show white count 13.94. Sodium 140, potassium 4.5. Total bilirubin is increased to 1.80 today, AST/ALT elevated, lipase has improved to 955. Patient had liver ultrasound done showing small amount of free fluid, debris filled gallbladder and a gallstone at the neck of the gallbladder with posterior shadowing. General surgery consulted and patient may need surgical intervention. plavix being held. 08/03/2022 Patient is evaluated on medical floor. Had pancreas CT done showing pancreatitis with small amount of intra abdominal free fluid likely reactive. There are 2 areas within the pancreatic tail that do not definitively enhance. Findings could represent necrotizing pancreatitis. Underlying mass not entirely excluded on this exam alone. Attention on imaging after resolution of symptoms. Layering debris within the esophagus correlate for reflux versus esophageal dysmotility. Colonic diverticulosis. Patient has increasing elevated LFT's with total bilirubin 1.80, AST 356, ALT 262. Patient is started on IV zosyn and ID has been consulted. Today LFTs are slightly decreased and lipase has improved to 451. Pulse ox had dropped yesterday and chest xray is done revealing cardiomegaly, pulmonary vascular congestion and bilateral pleural effusions, proBNP was done and elevated at 3870. Procalcitonin level is 1.22. Blood cultures are taken. Diet is being advanced to clear liquid per general surgery. Noted that patient had an echocardiogram done back in June showing an EF of 50% with mild mitral regurgitation, mild to moderate tricuspid regurgitation. 08/04/2022 Patient remains on medical floor. Abdominal pain is improving and patient is tolerating clear liquid diet. Has been started on IV antibiotics and remains on IV zosyn with infectious disease on consult for further recommendations. No surgical intervention at this time, patient to be medically treated for the pancreatitis. Blood pressure is improved currently 150s systolic. Liver enzymes are improving. Review of Systems Constitutional: Denied any fatigue Reports fever. Cardio vascular: denied any chest pain, palpitations Gastrointestinal: denied any nausea, vomiting, diarrhea. Pulmonary: Denied any shortness of breath cough Neurologic denied any new focal deficits All inpatient medications were reviewed and appropriate changes in these medications as dictated in the interval history and assessment and plan. PHYSICAL EXAMINATION: GENERAL: The patient is alert and oriented x4, Well developed, well nourished. Obese HEENT: Pupils are round and equally reacting to light. EOMI. no scleral icterus. No conjunctival pallor. Normocephalic, atraumatic. No pharyngeal erythema. No thyromegaly. CARDIOVASCULAR: S1 and S2 muffled PULMONARY: diminished breath sounds bilaterally with no wheezing or rhonchi noted. ABDOMEN: soft. nontender. obese. non-distended, normoactive bowel sounds. No palpable organomegaly. MUSCULOSKELETAL: No joint swelling or deformity. EXTREMITIES: No cyanosis, clubbing, or pedal edema. NEUROLOGICAL: Gross neurological examination did not reveal any focal deficits. SKIN: No rashes. Assessment: Acute gallstone pancreatitis with possible necrotizing pancreatitis per imaging Sepsis secondary to above Hyperbilirubinemia and elevated LFTs Mild acute heart failure exacerbation EF of 50% with mild to mod TR. Recent history of CVA in June 2022 which plavix is currently being held. Previous marijuana use quit 21 days ago Previous alcohol abuse quit 21 days ago Obesity with a BMI of 31.4 History of gout Hypertension GI prophylaxis DVT prophylaxis Full code Plan: General surgery consultation Continue IV fluids and clear liquid diet Continue IV antibiotics Plavix being held for possible surgical intervention recommend to resume as soon as possible due to recent stroke last month. Follow up AM labs The impression and plan of care has been dictated by Sade Lopez Nurse Practitioner as directed. Dr. Magnus MD I have performed a history and physical examination and medical decision making of this patient, discussed the same with the dictator, and agree with the dictators assessment and plan as written, documented as a scribe. Based on total visit time, I have performed more than 50% of this visit. Objective - Vital Signs Vital signs: Vital Signs Temp 97.6 F 08/04/22 08:00 Pulse 87 08/04/22 08:00 Resp 18 08/04/22 08:00 BP 150/84 08/04/22 08:00 Pulse Ox 96 08/04/22 08:00 FiO2 Intake & Output 08/03/22 08/04/22 08/04/22 18:59 06:59 18:59 Intake Total 118 Balance 118 Intake: Oral 118 Other: Voiding Method Toilet Toilet Toilet # Voids 3 2 0 # Bowel Movements 1 - Labs CBC & Chem 7: 08/03/22 03:28 08/04/22 06:43 Labs: Abnormal Lab Results - Last 24 Hours (Table) 08/03/22 08/03/22 Range/Units 03:28 03:28 Plt Count Comment DECREASED A Neutrophils # (Manual) 12.83 H (2.00-8.90) X 10*3/uL Lymphocytes # (Manual) 0.46 L (0.90-5.00) X 10*3/uL Monocytes # (Manual) 1.99 H (0.20-1.00) X 10*3/uL Eosinophils # (Manual) 0 L (0.04-0.35) X 10*3/uL Glucose 133 H (70-110) mg/dL Calcium 7.3 L (8.7-10.3) mg/dL Total Bilirubin 1.50 H (0.30-1.20) mg/dL AST 203 H (14-35) U/L ALT 176 H (10-49) U/L Total Protein 5.0 L (6.2-8.2) g/dL Albumin 2.9 L (3.8-4.9) g/dL Albumin/Globulin Ratio 1.38 L (1.60-3.17) g/dL Lipase 451 H (14-60) U/L Assessment and Plan Time with Patient: Less than 30
[2022-08-04] MEDS: CLOPIDOGREL 75 MG TAB PO SCH (14:54)
--- NOTE | 2022-08-04 15:22 | P.PN ---
Subjective Progress Note Date: 08/04/22 Principal diagnosis: Leukocytosis and gallstone pancreatitis Patient is a 67-year-old male with a past medical history significant for CVA TIA hypertension presenting to the ER for abdominal pain, patient did have elevated white count and has been diagnosed with gallstone pancreatitis on today's evaluation that is 08/04/2022, patient denies having any fever or any ch ills the patient abdominal pain is controlled with current medication and denies having any nausea or vomiting no diarrhea no chest pain shortness of breath or cough Objective - Vital Signs Vital signs: Vital Signs Temp 98 F 08/04/22 14:00 Pulse 95 08/04/22 14:00 Resp 18 08/04/22 14:00 BP 124/84 08/04/22 14:00 Pulse Ox 95 08/04/22 14:00 FiO2 Intake & Output 08/03/22 08/04/22 08/04/22 18:59 06:59 18:59 Intake Total 118 120 Balance 118 120 Intake: Oral 118 120 Other: Voiding Method Toilet Toilet Toilet # Voids 3 2 0 # Bowel Movements 1 - Exam GENERAL DESCRIPTION: An elderly male lying in bed in no distress RESPIRATORY SYSTEM: Unlabored breathing , decreased breath sounds at bases HEART: S1 S2 regular rate and rhythm , ABDOMEN: Soft , mild distention but no significant tenderness EXTREMITIES: No edema feet - Labs CBC & Chem 7: 08/03/22 03:28 08/04/22 06:43 Labs: Abnormal Lab Results - Last 24 Hours (Table) 08/04/22 Range/Units 06:43 Sodium 134 L (135-145) mmol/L Anion Gap 7.90 L (10.00-18.00) mmol/L Glucose 123 H (70-110) mg/dL Calcium 7.5 L (8.7-10.3) mg/dL Total Bilirubin 1.30 H (0.30-1.20) mg/dL AST 91 H (14-35) U/L ALT 94 H (10-49) U/L Total Protein 4.8 L (6.2-8.2) g/dL Albumin 2.7 L (3.8-4.9) g/dL Albumin/Globulin Ratio 1.28 L (1.60-3.17) g/dL Microbiology - Last 24 Hours (Table) 08/02/22 19:10 Blood Culture - Preliminary Blood Assessment and Plan (1) Leukocytosis Current Visit: Yes Status: Acute Code(s): D72.829 - ELEVATED WHITE BLOOD CELL COUNT, UNSPECIFIED SNOMED Code(s): 802438537 (2) Gallstone pancreatitis Current Visit: Yes Status: Acute Code(s): K85.10 - BILIARY ACUTE PANCREATITIS WITHOUT NECROSIS OR INFECTION SNOMED Code(s): 73661122 Plan: 1patient presented to the hospital with sepsis in this patient with a fever elevated white count source with likely gallstone pancreatitis with significant formation of the gallbladder seen only ultrasound and will need to call for the enteric gram-negative to be the likely pathogen 2-patient seemed to have some clinical improvement and will continue Zosyn 3.375 every 8 hours, along with bowel rest Time with Patient: Less than 30
[2022-08-05] MEDS: PIPERACILLIN-TAZOBACTAM 3.375 GM in SODIUM CHLORIDE 0.9% 100 ML IVPB SCH ×3 (02:28→18:03)
[2022-08-05 08:43] LABS: Basophils # (A) 0.07 X 10*3/uL (0.00-0.10); Basophils % (A) 0.5 %; Eosinophils # (A) 0 X 10*3/uL (0.04-0.35); Eosinophils % (A) 0 %; HCT 43.4 % (39.6-50.0); Immature Grans, Automated 1.1 %; Lymphocytes # (A) 0.77 X 10*3/uL (0.90-5.00); MCHC 32.3 g/dL (32.0-37.0); MCV 89.9 fL (80.0-97.0); Mean Platelet Volume 11.3 fL (9.5-12.2); Monocytes # (A) 1.12 X 10*3/uL (0.20-1.00); Monocytes % (A) 8.7 %; NRBC Per 100 WBC 0 /100 WBCS (0.0-0.0); Neutrophils # (A) 10.75 X 10*3/uL (1.80-7.70); Neutrophils % (A) 83.7 %; Platelet Count 107 X 10*3/uL (140-440); RBC 4.83 X 10*6/uL (4.40-5.60); RDW 14.8 % (11.5-14.5); WBC 12.85 X 10*3/uL (4.50-10.00)
[2022-08-05] MEDS: PANTOPRAZOLE 40 MG/10 ML VIAL IVP SCH ×2 (10:12→20:02)
[2022-08-05] MEDS: CLOPIDOGREL 75 MG TAB PO SCH (10:13)
[2022-08-05] MEDS: lisinopriL 20 MG TAB PO SCH (10:13)
[2022-08-05] MEDS: SODIUM CHLORIDE 0.9% 1,000 ML IV SCH (10:13)
[2022-08-05] MEDS: THIAMINE 100 MG TAB PO SCH (10:13)
--- NOTE | 2022-08-05 11:51 | CDI ---
Documentation Clarification Form Date: 08/05/2022 From: Marilyn Jamison Phone: [phone] Admit Date: 08/01/2022 3:53:00 AM Patient Name: Cristóbal Canales Visit Number: [id number] Discharge Date: ATTENTION: The Clinical Documentation Specialists (CDI) and [facility] Coding Staff appreciate your assistance in clarifying documentation. Please respond to the clarification below the line at the bottom and electronically sign. The CDI & [facility] Coding staff will review the response and follow-up if needed. Please note: Queries are made part of the Legal Health Record. If you have any questions, please contact the author of this message via ITS. Dr. Howard Agudelo Your patient has the documented diagnosis of mild acute heart failure exacerbation EF of 50%. Additional information regarding the type of CHF is requested. History/Risk Factors: HTN, obesity Clinical Indicators 08/03: diminished breath sounds Pulse OX: 08/02 @ 1023 90% on RA BNP 08/03: 3870 Echocardiogram Results: per the record and echo was completed in June and noted an EF of 50% with mild mitral regurg and mil to mod tricuspid regurg Chest X Ray 08/02: cardiomegaly, pulmonary vascular congestion, bilateral pleural effusions Treatment: supplemental O2, monitoring, IV fluids decreased to 75ml/hr In your professional opinion, can you please clarify the type of CHF if known? [ ] Acute Systolic Heart Failure (reduced EF) [ ] Acute on Chronic Systolic Heart Failure (reduced EF) [ ] Acute Diastolic Heart Failure (preserved EF) [ ] Acute on Chronic Diastolic Heart Failure (preserved EF) [ ] Acute Systolic & Diastolic Heart Failure [ ] Acute on Chronic Heart Failure Systolic & Diastolic Heart Failure [ ] Other, please specify [ ] Unable to determine (Template Last Revised: April 2020) Acute Diastolic Heart Failure (preserved EF) MTDD
[2022-08-05 12:14] LABS: African American GFR (CKD) 105.1 (60.0-200.0); Albumin 2.8 g/dL (3.8-4.9); Albumin/Globulin Ratio 1.13 (1.60-3.17); Anion Gap 12.7 mmol/L (10.00-18.00); BUN/Creat Ratio 11.29 Ratio (12.00-20.00); Blood Urea Nitrogen 9.8 mg/dL (9.0-27.0); Calcium 7.6 mg/dL (8.7-10.3); Carbon Dioxide 19.9 mmol/L (20.0-27.5); Globulin 2.5 g/dL (1.6-3.3); Non-African American GFR(CKD) 90.7 (60.0-200.0); Potassium 3.7 mmol/L (3.5-5.5); Total Bilirubin 1.5 mg/dL (0.30-1.20); Total Protein 5.2 g/dL (6.2-8.2)
--- NOTE | 2022-08-05 12:31 | P.PN ---
Subjective Progress Note Date: 08/05/22 CHIEF COMPLAINT: Pancreatitis HISTORY OF PRESENT ILLNESS: Patient reports that his pain is improving. He denies any nausea vomiting. Reports having bowel movement. He is complaining of urinary frequency and vomiting up to the night to urinate. Patient complaining that he could not sleep. Patient tolerating clear liquids. Afebrile. WBC is 12.85 Hgb 14 plt 107 total bili is up slightly from 1.3 to 1.5 AST 72 ALT 74 alk phos 90 LFTs trending down. Lipase 451 on 08/03. Plavix resumed yesterday due to Recent stroke. PHYSICAL EXAM: VITAL SIGNS: Reviewed. GENERAL: Well-developed in no acute distress. HEENT: No sclera icterus. Extraocular movements grossly intact. Moist buccal mucosa. Head is atraumatic, normocephalic. ABDOMEN: Soft. Nondistended. Nontender. NEUROLOGIC: Alert and oriented. Cranial nerves II through XII grossly intact. ASSESSMENT: 1. Acute pancreatitis possibly due to gallstones or alcohol PLAN: -Advance diet to full liquids -Continue supportive care -Further recommendations forthcoming regarding eventual laparoscopic cholecystectomy per surgeon -Discussed to continue to refrain from alcohol use Physician Disposition Clerk note has been reviewed by physician. Signing provider agrees with the documented findings, assessment, and plan of care. I have personally seen and examined the patient, reviewed the KEYBOARDING CLERK /PAs history, exam and MDM and agree with the assessment and plan as written. Based on total visit time, I have performed more than 50% of the visit. As above: Patient doing well. Says his pain is improved. Complaining of frequent urination. Labs are improving. We'll advance to full liquids. Reevaluate tomorrow. Objective - Vital Signs Vital signs: Vital Signs Temp 98.3 F 08/05/22 07:49 Pulse 86 08/05/22 07:49 Resp 16 08/05/22 08:00 BP 131/70 08/05/22 07:49 Pulse Ox 93 L 08/05/22 08:35 FiO2 21 08/05/22 08:35 Intake & Output 08/04/22 08/05/22 08/05/22 18:59 06:59 18:59 Intake Total 220 221 Balance 220 221 Intake: Oral 220 221 Other: Voiding Method Toilet Toilet Toilet # Voids 2 2 - Labs CBC & Chem 7: 08/05/22 05:52 08/05/22 05:52 Labs: Abnormal Lab Results - Last 24 Hours (Table) 08/05/22 08/05/22 Range/Units 05:52 05:52 WBC 12.85 H (4.50-10.00) X 10*3/uL RDW 14.8 H (11.5-14.5) % Plt Count 107 L (140-440) X 10*3/uL Immature Gran # 0.14 H (0.00-0.04) X 10*3/uL Neutrophils # 10.75 H (1.80-7.70) X 10*3/uL Lymphocytes # 0.77 L (0.90-5.00) X 10*3/uL Monocytes # 1.12 H (0.20-1.00) X 10*3/uL Eosinophils # 0 L (0.04-0.35) X 10*3/uL Sodium 134 L (135-145) mmol/L Carbon Dioxide 19.9 L (20.0-27.5) mmol/L BUN/Creatinine Ratio 11.29 L (12.00-20.00) Ratio Glucose 162 H (70-110) mg/dL Calcium 7.6 L (8.7-10.3) mg/dL Total Bilirubin 1.50 H (0.30-1.20) mg/dL AST 72 H (14-35) U/L ALT 74 H (10-49) U/L Total Protein 5.2 L (6.2-8.2) g/dL Albumin 2.8 L (3.8-4.9) g/dL Albumin/Globulin Ratio 1.13 L (1.60-3.17) g/dL Microbiology - Last 24 Hours (Table) 08/02/22 19:10 Blood Culture - Preliminary Blood
[2022-08-05 16:00] LABS: Prothrombin Time 10.4 sec (9.0-12.0)
[2022-08-05 16:01] LABS: Partial Thromboplastin Time 24.2 sec (22.0-30.0)
[2022-08-05] MEDS: HEPARIN SODIUM,PORCINE/PF 5,000 UNIT/0.5 ML SYRINGE SQ SCH ×2 (18:02→19:41)
[2022-08-05] MEDS: MELATONIN 5 MG TABLET PO PRN (21:50)
[2022-08-06] MEDS: PIPERACILLIN-TAZOBACTAM 3.375 GM in SODIUM CHLORIDE 0.9% 100 ML IVPB SCH ×3 (02:31→17:30)
[2022-08-06] MEDS: SODIUM CHLORIDE 0.9% 1,000 ML IV SCH ×2 (04:07→21:47)
--- NOTE | 2022-08-06 06:29 | PN ---
PROGRESS NOTE DATE OF SERVICE: 08/05/2022 SUBJECTIVE: This 67-year-old gentleman was admitted with acute gallstone pancreatitis, he is being closely monitored. The patient on antibiotics, multiple consultants following the patient closely. The white count is 12.85. The patient has multiple abnormalities. The cultures are negative so far. The patient is on empiric antibiotics. Multiple consultants are following the patient closely. Surgery is also following the patient closely. PAST MEDICAL HISTORY: Reviewed. REVIEW OF SYSTEMS: A 14-point review is negative except as mentioned earlier. CURRENT MEDICATIONS: Zosyn IV, doses and rest of medications noted. OBJECTIVE: VITAL SIGNS: Pulse is 86, blood pressure 130/70, respirations 16. CHEST: Few scattered rhonchi, no crackles. ABDOMEN: Soft, obese, mild diffuse tenderness. No guarding, no rigidity. LEGS: No edema. NERVOUS SYSTEM: No focal deficits. LABORATORY DATA: Reviewed. Bilirubin is 1.5. Procal is 1.22. ASSESSMENT: 1. Acute gallstone pancreatitis. 2. Acute severe necrotizing pancreatitis and sepsis, present on admission. 3. Hyperbilirubinemia and elevated LFTs. 4. Mild CHF acute exacerbation with acute on chronic diastolic dysfunction, ejection fraction 50%. 5. Recent history of CVA. 6. History of THC. 7. History of EtOH. 8. Multiple medical issues. 9. Morbid obesity with a BMI of 31.4. RECOMMENDATIONS: Recommended to continue current medications, continue symptomatic treatment. Otherwise, patient is on IV Zosyn. DVT prophylaxis. Closely follow with surgery. Cultures are negative so far, symptomatic treatment, Protonix. Guarded prognosis. Further recommendations to follow. See orders for details. MMODL / IJN: [id number] /
--- NOTE | 2022-08-06 08:01 | P.PN ---
Subjective Progress Note Date: 08/05/22 Principal diagnosis: Leukocytosis and gallstone pancreatitis Patient is a 67-year-old male with a past medical history significant for CVA TIA hypertension presenting to the ER for abdominal pain, patient did have elevated white count and has been diagnosed with gallstone pancreatitis on today's evaluation that is 08/05/2022, patient is afebrile, the patient abdomin al pain has decreased in intensity and denies having any nausea or vomiting no diarrhea no chest pain shortness of breath or cough Objective - Vital Signs Vital signs: Vital Signs Temp 98.3 F 08/05/22 07:49 Pulse 86 08/05/22 07:49 Resp 16 08/05/22 08:00 BP 131/70 08/05/22 07:49 Pulse Ox 93 L 08/05/22 08:35 FiO2 21 08/05/22 08:35 Intake & Output 08/04/22 08/05/22 08/05/22 18:59 06:59 18:59 Intake Total 220 221 Balance 220 221 Intake: Oral 220 221 Other: Voiding Method Toilet Toilet Toilet # Voids 2 2 - Exam GENERAL DESCRIPTION: An elderly male lying in bed in no distress RESPIRATORY SYSTEM: Unlabored breathing , decreased breath sounds at bases HEART: S1 S2 regular rate and rhythm , ABDOMEN: Soft , mild distention but no significant tenderness EXTREMITIES: No edema feet - Labs CBC & Chem 7: 08/05/22 05:52 08/05/22 05:52 Labs: Abnormal Lab Results - Last 24 Hours (Table) 08/05/22 08/05/22 Range/Units 05:52 05:52 WBC 12.85 H (4.50-10.00) X 10*3/uL RDW 14.8 H (11.5-14.5) % Plt Count 107 L (140-440) X 10*3/uL Immature Gran # 0.14 H (0.00-0.04) X 10*3/uL Neutrophils # 10.75 H (1.80-7.70) X 10*3/uL Lymphocytes # 0.77 L (0.90-5.00) X 10*3/uL Monocytes # 1.12 H (0.20-1.00) X 10*3/uL Eosinophils # 0 L (0.04-0.35) X 10*3/uL Sodium 134 L (135-145) mmol/L Carbon Dioxide 19.9 L (20.0-27.5) mmol/L BUN/Creatinine Ratio 11.29 L (12.00-20.00) Ratio Glucose 162 H (70-110) mg/dL Calcium 7.6 L (8.7-10.3) mg/dL Total Bilirubin 1.50 H (0.30-1.20) mg/dL AST 72 H (14-35) U/L ALT 74 H (10-49) U/L Total Protein 5.2 L (6.2-8.2) g/dL Albumin 2.8 L (3.8-4.9) g/dL Albumin/Globulin Ratio 1.13 L (1.60-3.17) g/dL Microbiology - Last 24 Hours (Table) 08/02/22 19:10 Blood Culture - Preliminary Blood Assessment and Plan (1) Leukocytosis Current Visit: Yes Status: Acute Code(s): D72.829 - ELEVATED WHITE BLOOD CELL COUNT, UNSPECIFIED SNOMED Code(s): 333505624 (2) Gallstone pancreatitis Current Visit: Yes Status: Acute Code(s): K85.10 - BILIARY ACUTE PANCREATITIS WITHOUT NECROSIS OR INFECTION SNOMED Code(s): 83673724 Plan: 1patient presented to the hospital with sepsis in this patient with a fever elevated white count source with likely gallstone pancreatitis with significant formation of the gallbladder seen only ultrasound and will need to call for the enteric gram-negative to be the likely pathogen 2-patient seemed to have some clinical improvement and will continue Zosyn 3.375 every 8 hours, along with bowel rest , surgery recommending outpatient cholecystectomy , will transition to oral augmentin on discharge Time with Patient: Less than 30
[2022-08-06] MEDS: HEPARIN SODIUM,PORCINE/PF 5,000 UNIT/0.5 ML SYRINGE SQ SCH ×2 (08:41→20:51)
[2022-08-06] MEDS: PANTOPRAZOLE 40 MG/10 ML VIAL IVP SCH ×2 (08:41→20:52)
[2022-08-06] MEDS: lisinopriL 20 MG TAB PO SCH (08:42)
[2022-08-06] MEDS: THIAMINE 100 MG TAB PO SCH (08:42)
[2022-08-06] MEDS: CLOPIDOGREL 75 MG TAB PO SCH (08:42)
[2022-08-06 08:51] LABS: African American GFR (CKD) 114.8 (60.0-200.0); Albumin 2.7 g/dL (3.8-4.9); Albumin/Globulin Ratio 1.13 (1.60-3.17); Anion Gap 11.2 mmol/L (10.00-18.00); BUN/Creat Ratio 11.14 Ratio (12.00-20.00); Blood Urea Nitrogen 7.8 mg/dL (9.0-27.0); Calcium 7.5 mg/dL (8.7-10.3); Carbon Dioxide 23.8 mmol/L (20.0-27.5); Globulin 2.4 g/dL (1.6-3.3); Potassium 3.1 mmol/L (3.5-5.5); Total Bilirubin 1.3 mg/dL (0.30-1.20); Total Protein 5.1 g/dL (6.2-8.2)
[2022-08-06] MEDS: HYDROmorphone 0.5 MG/0.5 ML SYRINGE IVP PRN (09:04)
[2022-08-06 10:13] LABS: Basophils # (A) 0.03 X 10*3/uL (0.00-0.10); Basophils % (A) 0.4 %; Eosinophils # (A) 0.01 X 10*3/uL (0.04-0.35); Eosinophils % (A) 0.1 %; HCT 40.3 % (39.6-50.0); HGB 13.1 g/dL (13.0-17.0); Immature Grans, Automated 1.2 %; Lymphocytes # (A) 0.87 X 10*3/uL (0.90-5.00); Lymphocytes % (A) 10.4 %; MCH 28.9 pg (27.0-32.0); MCHC 32.5 g/dL (32.0-37.0); MCV 88.8 fL (80.0-97.0); Mean Platelet Volume 11.2 fL (9.5-12.2); Monocytes # (A) 1.07 X 10*3/uL (0.20-1.00); Monocytes % (A) 12.8 %; NRBC Per 100 WBC 0.2 /100 WBCS (0.0-0.0); Neutrophils # (A) 6.28 X 10*3/uL (1.80-7.70); Neutrophils % (A) 75.1 %; Platelet Count 120 X 10*3/uL (140-440); RBC 4.54 X 10*6/uL (4.40-5.60); RDW 14.7 % (11.5-14.5); WBC 8.36 X 10*3/uL (4.50-10.00)
--- NOTE | 2022-08-06 12:06 | P.PN ---
Subjective Progress Note Date: 08/06/22 Principal diagnosis: Leukocytosis and gallstone pancreatitis Patient is a 67-year-old male with a past medical history significant for CVA TIA hypertension presenting to the ER for abdominal pain, patient did have elevated white count and has been diagnosed with gallstone pancreatitis on today's evaluation that is 08/06/2022, patient remains to be afebrile, the saeed ent feeling better and she did have a good night sleep, the patient abdominal pain has decreased in intensity and denies having any nausea or vomiting no diarrhea no chest pain shortness of breath or cough Objective - Vital Signs Vital signs: Vital Signs Temp 98.1 F 08/06/22 08:00 Pulse 71 08/06/22 08:00 Resp 14 08/06/22 08:00 BP 132/71 08/06/22 08:00 Pulse Ox 91 L 08/06/22 08:00 FiO2 21 08/05/22 08:35 Intake & Output 08/05/22 08/06/22 08/06/22 18:59 06:59 18:59 Intake Total 221 Balance 221 Intake: Oral 221 Other: Voiding Method Toilet Toilet Toilet # Voids 7 3 # Bowel Movements 1 - Exam GENERAL DESCRIPTION: An elderly male lying in bed in no distress RESPIRATORY SYSTEM: Unlabored breathing , decreased breath sounds at bases HEART: S1 S2 regular rate and rhythm , ABDOMEN: Soft , mild distention but no significant tenderness EXTREMITIES: No edema feet - Labs CBC & Chem 7: 08/06/22 06:08 08/06/22 06:08 Labs: Abnormal Lab Results - Last 24 Hours (Table) 08/05/22 08/06/22 08/06/22 Range/Units 05:52 06:08 06:08 RDW 14.7 H (11.5-14.5) % Plt Count 120 L (140-440) X 10*3/uL Absolute Nucleated RBC 0.02 H (0.00-0.00) X 10*3/uL Immature Gran # 0.10 H (0.00-0.04) X 10*3/uL Lymphocytes # 0.87 L (0.90-5.00) X 10*3/uL Monocytes # 1.07 H (0.20-1.00) X 10*3/uL Eosinophils # 0.01 L (0.04-0.35) X 10*3/uL NRBC/100 WBC Diff 0.2 H (0.0-0.0) /100 WBCS Sodium 134 L (135-145) mmol/L Potassium 3.1 L (3.5-5.5) mmol/L Carbon Dioxide 19.9 L (20.0-27.5) mmol/L BUN 7.8 L (9.0-27.0) mg/dL BUN/Creatinine Ratio 11.29 L 11.14 L (12.00-20.00) Ratio Glucose 162 H 167 H (70-110) mg/dL Calcium 7.6 L 7.5 L (8.7-10.3) mg/dL Total Bilirubin 1.50 H 1.30 H (0.30-1.20) mg/dL AST 72 H 70 H (14-35) U/L ALT 74 H 65 H (10-49) U/L Total Protein 5.2 L 5.1 L (6.2-8.2) g/dL Albumin 2.8 L 2.7 L (3.8-4.9) g/dL Albumin/Globulin Ratio 1.13 L 1.13 L (1.60-3.17) g/dL Microbiology - Last 24 Hours (Table) 08/02/22 19:10 Blood Culture - Preliminary Blood Assessment and Plan (1) Leukocytosis Current Visit: Yes Status: Acute Code(s): D72.829 - ELEVATED WHITE BLOOD CELL COUNT, UNSPECIFIED SNOMED Code(s): 251838911 (2) Gallstone pancreatitis Current Visit: Yes Status: Acute Code(s): K85.10 - BILIARY ACUTE PANCREATITIS WITHOUT NECROSIS OR INFECTION SNOMED Code(s): 33923420 Plan: 1patient presented to the hospital with sepsis in this patient with a fever elevated white count source with likely gallstone pancreatitis with significant formation of the gallbladder seen only ultrasound and will need to call for the enteric gram-negative to be the likely pathogen 2-patient seemed to have some clinical improvement and the patient white count has normalized as of this morning we will continue the patient on Zosyn while inpatient however able to transition to oral Augmentin on discharge Time with Patient: Less than 30
[2022-08-06] MEDS ORDERED: POTASSIUM CHLORIDE ER 20 MEQ TAB.ER PO STA (13:30)
--- NOTE | 2022-08-06 13:31 | P.PN ---
Subjective Progress Note Date: 08/06/22 CHIEF COMPLAINT: Pancreatitis HISTORY OF PRESENT ILLNESS: Patient complains of epigastric pain. He does report the pain is improving each day. He denies any nausea or vomiting. He does have some increase in pain after eating. He is currently a full liquid diet. Afebrile. WBC has normalized to 8.36 Hgb is 13.1 potassium 3.1 total bilirubin is down from 1.5-1.3 AST 70 ALT 65 LFTs trending down. Urinary frequency has improved. PHYSICAL EXAM: VITAL SIGNS: Reviewed. GENERAL: Well-developed in no acute distress. HEENT: No sclera icterus. Extraocular movements grossly intact. Moist buccal mucosa. Head is atraumatic, normocephalic. ABDOMEN: Soft. Nondistended. Nontender. NEUROLOGIC: Alert and oriented. Cranial nerves II through XII grossly intact. ASSESSMENT: 1. Acute pancreatitis possibly due to gallstones or alcohol 2. History of stroke on Plavix 3. Hypokalemia PLAN: -Continue full liquids -Recommend outpatient laparoscopic cholecystectomy -Replace potassium Physician Channel Installer note has been reviewed by physician. Signing provider agrees with the documented findings, assessment, and plan of care. Objective - Vital Signs Vital signs: Vital Signs Temp 98.1 F 08/06/22 08:00 Pulse 94 08/06/22 09:30 Resp 17 08/06/22 09:30 BP 132/71 08/06/22 08:00 Pulse Ox 94 L 08/06/22 09:30 FiO2 21 08/05/22 08:35 Intake & Output 08/05/22 08/06/22 08/06/22 18:59 06:59 18:59 Intake Total 221 Balance 221 Intake: Oral 221 Other: Voiding Method Toilet Toilet Toilet # Voids 7 3 # Bowel Movements 1 - Labs CBC & Chem 7: 08/06/22 06:08 08/06/22 06:08 Labs: Abnormal Lab Results - Last 24 Hours (Table) 08/06/22 08/06/22 Range/Units 06:08 06:08 RDW 14.7 H (11.5-14.5) % Plt Count 120 L (140-440) X 10*3/uL Absolute Nucleated RBC 0.02 H (0.00-0.00) X 10*3/uL Immature Gran # 0.10 H (0.00-0.04) X 10*3/uL Lymphocytes # 0.87 L (0.90-5.00) X 10*3/uL Monocytes # 1.07 H (0.20-1.00) X 10*3/uL Eosinophils # 0.01 L (0.04-0.35) X 10*3/uL NRBC/100 WBC Diff 0.2 H (0.0-0.0) /100 WBCS Potassium 3.1 L (3.5-5.5) mmol/L BUN 7.8 L (9.0-27.0) mg/dL BUN/Creatinine Ratio 11.14 L (12.00-20.00) Ratio Glucose 167 H (70-110) mg/dL Calcium 7.5 L (8.7-10.3) mg/dL Total Bilirubin 1.30 H (0.30-1.20) mg/dL AST 70 H (14-35) U/L ALT 65 H (10-49) U/L Total Protein 5.1 L (6.2-8.2) g/dL Albumin 2.7 L (3.8-4.9) g/dL Albumin/Globulin Ratio 1.13 L (1.60-3.17) g/dL Microbiology - Last 24 Hours (Table) 08/02/22 19:10 Blood Culture - Preliminary Blood
[2022-08-06] MEDS ORDERED: Magnesium Replacement Protocol 1 EACH MISC MISCELLANE PRN (14:41)
[2022-08-06] MEDS ORDERED: Potassium Replacement Protocol 1 EACH MISC MISCELLANE PRN (14:41)
--- NOTE | 2022-08-06 18:14 | PN ---
PROGRESS NOTE DATE OF SERVICE: 08/06/2022 SUBJECTIVE: This is a 67-year-old gentleman, who was admitted with acute gallstone pancreatitis. He also had necrotizing pancreatitis. The patient is on broad-spectrum IV antibiotics. Surgery is planning conservative line of management at this time. Outpatient laparoscopic cholecystectomy is recommended by Surgery. OBJECTIVE: VITAL SIGNS: Pulse is 48, blood pressure is 115/60, respirations 14. CHEST: Clear to auscultation. CARDIOVASCULAR: S1 and S2. ABDOMEN: Obese. LABORATORY DATA: Reviewed. ASSESSMENT: 1. Acute gallstone pancreatitis. 2. Acute severe necrotizing pancreatitis with sepsis, present on admission. 3. Hyperbilirubinemia and elevated liver function tests. 4. Mild congestive heart failure acute exacerbation with [id number] diastolic dysfunction. Ejection fraction of 50%. 5. Recent history of cerebrovascular accident. 6. Multiple medical issues. 7. History of EtOH. RECOMMENDATIONS: Recommend to continue current medications. Continue symptomatic treatment. Continue with antibiotics. Repeat labs. Closely monitor. Guarded prognosis. Further recommendations to follow. See orders for details. LFTs are improving. MMODL / IJN: [id number] /
[2022-08-06] MEDS: MELATONIN 5 MG TABLET PO PRN (20:51)
[2022-08-07] MEDS: PIPERACILLIN-TAZOBACTAM 3.375 GM in SODIUM CHLORIDE 0.9% 100 ML IVPB SCH ×2 (01:33→10:05)
[2022-08-07] MEDS: lisinopriL 20 MG TAB PO SCH (08:55)
[2022-08-07] MEDS: THIAMINE 100 MG TAB PO SCH (08:55)
[2022-08-07] MEDS: CLOPIDOGREL 75 MG TAB PO SCH (08:55)
[2022-08-07] MEDS: HEPARIN SODIUM,PORCINE/PF 5,000 UNIT/0.5 ML SYRINGE SQ SCH (08:56)
[2022-08-07 09:00] LABS: African American GFR (CKD) 114.8 (60.0-200.0); Albumin 2.7 g/dL (3.8-4.9); Albumin/Globulin Ratio 1.17 (1.60-3.17); Anion Gap 8.1 mmol/L (10.00-18.00); BUN/Creat Ratio 12.14 Ratio (12.00-20.00); Blood Urea Nitrogen 8.5 mg/dL (9.0-27.0); Calcium 7.5 mg/dL (8.7-10.3); Carbon Dioxide 24.9 mmol/L (20.0-27.5); Globulin 2.3 g/dL (1.6-3.3); Magnesium 1.9 mg/dL (1.5-2.4); Total Bilirubin 1.2 mg/dL (0.30-1.20)
[2022-08-07] MEDS: PANTOPRAZOLE 40 MG/10 ML VIAL IVP SCH (10:05)
--- NOTE | 2022-08-07 10:25 | P.PN ---
Subjective Progress Note Date: 08/07/22 CHIEF COMPLAINT: Pancreatitis HISTORY OF PRESENT ILLNESS: Patient reports that he feels better today. He denies any abdominal pain. Denies any nausea or vomiting. Tolerating full liquid diet. He reports that he just wants to go home. Afebrile. Sodium 134 potassium 3.0 creatinine 0.7 total bilirubin has normalized from 1.3-1.2 AST is down to 51 ALT down to 54 alk phos 100 lipase elevated at 71 mg 1.9 PHYSICAL EXAM: VITAL SIGNS: Reviewed. GENERAL: Well-developed in no acute distress. HEENT: No sclera icterus. Extraocular movements grossly intact. Moist buccal mucosa. Head is atraumatic, normocephalic. ABDOMEN: Soft. Nondistended. Nontender. NEUROLOGIC: Alert and oriented. Cranial nerves II through XII grossly intact. ASSESSMENT: 1. Acute pancreatitis possibly due to gallstones or alcohol 2. History of stroke on Plavix 3. Hypokalemia PLAN: -Advance diet to regular, low fat -Recommend outpatient laparoscopic cholecystectomy -Continue to replace potassium Physician [place]aroo note has been reviewed by physician. Signing provider agrees with the documented findings, assessment, and plan of care. I have personally seen and examined the patient, reviewed the PEDIATRIC PATHOLOGIST /PAs history, exam and MDM and agree with the assessment and plan as written. Based on total visit time, I have performed more than 50% of the visit. As above: Patient doing well today. No significant pain at this time. He apparently has been cleared for discharge by the other services. Agree with those plans. Will follow-up in the office 1-2 weeks. Consider repeat follow-up CT pancreas as outpatient. Await outpatient neurology evaluation for clearance for close outpatient cholecystectomy. Low-fat diet and alcohol cessation after discharge reviewed with patient and family. Objective - Vital Signs Vital signs: Vital Signs Temp 97.6 F 08/07/22 08:00 Pulse 74 08/07/22 08:00 Resp 17 08/07/22 08:00 BP 146/77 08/07/22 08:00 Pulse Ox 97 08/07/22 08:00 FiO2 21 08/05/22 08:35 Intake & Output 08/06/22 08/07/22 08/07/22 18:59 06:59 18:59 Intake Total 997 Balance 997 Intake: Oral 997 Other: Voiding Method Toilet Toilet Toilet # Voids 4 2 - Labs CBC & Chem 7: 08/07/22 05:46 08/07/22 05:46 Labs: Abnormal Lab Results - Last 24 Hours (Table) 08/07/22 Range/Units 05:46 Sodium 134 L (135-145) mmol/L Potassium 3.0 L (3.5-5.5) mmol/L Anion Gap 8.10 L (10.00-18.00) mmol/L BUN 8.5 L (9.0-27.0) mg/dL Glucose 201 H (70-110) mg/dL Calcium 7.5 L (8.7-10.3) mg/dL AST 51 H (14-35) U/L ALT 54 H (10-49) U/L Total Protein 5.0 L (6.2-8.2) g/dL Albumin 2.7 L (3.8-4.9) g/dL Albumin/Globulin Ratio 1.17 L (1.60-3.17) g/dL Lipase 71 H (14-60) U/L Microbiology - Last 24 Hours (Table) 08/02/22 19:10 Blood Culture - Preliminary Blood
[2022-08-07] MEDS: POTASSIUM CHLORIDE ER 20 MEQ TAB.ER PO SCH ×2 (10:50→12:03)
[2022-08-07 10:59] LABS: Basophils # (A) 0.05 X 10*3/uL (0.00-0.10); Basophils % (A) 0.6 %; Eosinophils # (A) 0.03 X 10*3/uL (0.04-0.35); Eosinophils % (A) 0.4 %; HCT 39.7 % (39.6-50.0); Immature Grans, Automated 1.6 %; Immature Platelet Fraction 5.5 % (1.1-6.1); Lymphocytes # (A) 1.07 X 10*3/uL (0.90-5.00); Lymphocytes % (A) 12.8 %; MCH 29.5 pg (27.0-32.0); MCHC 32.7 g/dL (32.0-37.0); MCV 90.2 fL (80.0-97.0); Mean Platelet Volume 11.6 fL (9.5-12.2); Monocytes # (A) 1.01 X 10*3/uL (0.20-1.00); Monocytes % (A) 12.1 %; NRBC Per 100 WBC 0.2 /100 WBCS (0.0-0.0); Neutrophils # (A) 6.09 X 10*3/uL (1.80-7.70); Neutrophils % (A) 72.5 %; Platelet Count 36 X 10*3/uL (140-440); RDW 15.1 % (11.5-14.5); WBC 8.38 X 10*3/uL (4.50-10.00)
--- NOTE | 2022-08-07 13:25 | P.PN ---
Subjective Progress Note Date: 08/07/22 Principal diagnosis: Leukocytosis and gallstone pancreatitis Patient is a 67-year-old male with a past medical history significant for CVA TIA hypertension presenting to the ER for abdominal pain, patient did have elevated white count and has been diagnosed with gallstone pancreatitis on today's evaluation that is 08/07/2022, patient continues to be afebrile, the pa tient abdominal pain has decreased in intensity and denies having any nausea or vomiting , patient had been tolerating diet, no diarrhea no chest pain shortness of breath or cough Objective - Vital Signs Vital signs: Vital Signs Temp 97.6 F 08/07/22 08:00 Pulse 74 08/07/22 08:00 Resp 17 08/07/22 08:00 BP 146/77 08/07/22 08:00 Pulse Ox 97 08/07/22 08:00 FiO2 21 08/05/22 08:35 Intake & Output 08/06/22 08/07/22 08/07/22 18:59 06:59 18:59 Intake Total 997 Balance 997 Intake: Oral 997 Other: Voiding Method Toilet Toilet Toilet # Voids 4 2 - Exam GENERAL DESCRIPTION: An elderly male lying in bed in no distress RESPIRATORY SYSTEM: Unlabored breathing , decreased breath sounds at bases HEART: S1 S2 regular rate and rhythm , ABDOMEN: Soft , mild distention but no significant tenderness EXTREMITIES: No edema feet - Labs CBC & Chem 7: 08/07/22 05:46 08/07/22 05:46 Labs: Abnormal Lab Results - Last 24 Hours (Table) 08/07/22 08/07/22 Range/Units 05:46 05:46 RDW 15.1 H (11.5-14.5) % Plt Count 36 L (140-440) X 10*3/uL Absolute Nucleated RBC 0.02 H (0.00-0.00) X 10*3/uL Immature Gran # 0.13 H (0.00-0.04) X 10*3/uL Monocytes # 1.01 H (0.20-1.00) X 10*3/uL Eosinophils # 0.03 L (0.04-0.35) X 10*3/uL NRBC/100 WBC Diff 0.2 H (0.0-0.0) /100 WBCS Sodium 134 L (135-145) mmol/L Potassium 3.0 L (3.5-5.5) mmol/L Anion Gap 8.10 L (10.00-18.00) mmol/L BUN 8.5 L (9.0-27.0) mg/dL Glucose 201 H (70-110) mg/dL Calcium 7.5 L (8.7-10.3) mg/dL AST 51 H (14-35) U/L ALT 54 H (10-49) U/L Total Protein 5.0 L (6.2-8.2) g/dL Albumin 2.7 L (3.8-4.9) g/dL Albumin/Globulin Ratio 1.17 L (1.60-3.17) g/dL Lipase 71 H (14-60) U/L Microbiology - Last 24 Hours (Table) 08/02/22 19:10 Blood Culture - Preliminary Blood Assessment and Plan (1) Leukocytosis Current Visit: Yes Status: Acute Code(s): D72.829 - ELEVATED WHITE BLOOD CELL COUNT, UNSPECIFIED SNOMED Code(s): 574185103 (2) Gallstone pancreatitis Current Visit: Yes Status: Acute Code(s): K85.10 - BILIARY ACUTE PANCREATITIS WITHOUT NECROSIS OR INFECTION SNOMED Code(s): 80640039 Plan: 1patient presented to the hospital with sepsis in this patient with a fever elevated white count source with likely gallstone pancreatitis with significant formation of the gallbladder seen only ultrasound and will need to call for the enteric gram-negative to be the likely pathogen 2-patient has shown clinical improvement and the patient white count has normalized as of of yesterday, patient seemed to have been cleared for discharge by surgery we will finish therapy with oral Augmentin and close outpatient follow-up, prescription was sent to the pharmacy Time with Patient: Less than 30
--- NOTE | 2022-08-07 13:38 | DS ---
DISCHARGE SUMMARY FINAL DIAGNOSES: 1. Acute gallstone pancreatitis. 2. Acute severe necrotizing pancreatitis with sepsis present on admission. 3. Acute bilirubin and elevated LFTs. 4. Mild congestive heart failure exacerbation acute on chronic diastolic dysfunction, ejection fraction of 50%. 5. Recent history of cerebrovascular accident. 6. Multiple medical issues. 7. History of EtOH. DISCHARGE DISPOSITION: The patient will be discharged in stable condition with guarded prognosis. The patient is extremely keen on going home. HISTORY OF PRESENT ILLNESS: This is a 67-year-old gentleman admitted with multiple complex medical issues, treated medically. The patient was given antibiotics. The patient improved significantly. The surgery saw the patient, recommended outpatient laparoscopic cholecystectomy. Please refer to the previous notes and consultation for further information. Currently, the patient will be discharged in stable condition with guarded prognosis. Cleared by multiple consultants. PHYSICAL EXAMINATION: VITAL SIGNS: Stable. CARDIOVASCULAR: S1 and S2. ABDOMEN: Soft, obese, nontender. No guarding. No rigidity. DISCHARGE MEDICATIONS: Please refer to the discharge notes for further information and recommend followup labs. Protonix. Antibiotics per ID. Follow up with surgery, ID, primary home care, Cardiology. Once again, the patient will be discharged in stable condition. Guarded prognosis. MMODL / IJN: [id number] /
[2022-08-07 14:02] VITALS: BP 133/77; PULSE 78; RESP 15; TEMP 98.5
== END 2022-08-07 17:16 | disposition home or self-care (01) | DRG 871 ==
LOC: EC 00:18 → 6NMEDSUR 03:53
PROVIDERS: ADMIT Hospitalist; ATTEND Hospitalist
DX: A41.9 Sepsis, unspecified organism (principal); I50.33 Acute on chronic diastolic (congestive) heart failure; K85.11 Biliary acute pancreatitis with uninfected necrosis; K80.10 Calculus of gallbladder with chronic cholecystitis without obstruction; E66.01 Morbid (severe) obesity due to excess calories; E87.6 Hypokalemia; F40.240 Claustrophobia; F10.11 Alcohol abuse, in remission; I11.0 Hypertensive heart disease with heart failure; Z86.010 Personal history of colon polyps; Z68.31 Body mass index [BMI] 31.0-31.9, adult; Z79.02 Long term (current) use of antithrombotics/antiplatelets; Z79.82 Long term (current) use of aspirin; Z79.899 Other long term (current) drug therapy; Z86.73 Personal history of transient ischemic attack (TIA), and cerebral infarction without residual deficits; R94.5 Abnormal results of liver function studies
CPT/HCPCS: 36415; 71046; 74160; 76705; 80048; 80053; 80076; 81001; 82150; 83605; 83690; 83735; 83880; 84145; 85025; 85610; 85730; 87040; 93005; 94760; 96361; 96374; 96375; 99285

== ENCOUNTER → 2022-08-09 | Outpatient (CLI) | payer MEDICARE ==
[2022-08-09 16:02] LABS: Basophils # (A) 0.04 X 10*3/uL (0.00-0.10); Basophils % (A) 0.3 %; Eosinophils # (A) 0.08 X 10*3/uL (0.04-0.35); Eosinophils % (A) 0.7 %; HCT 41.3 % (39.6-50.0); HGB 13.2 g/dL (13.0-17.0); Immature Grans, Automated 1.8 %; Immature Platelet Fraction 8.8 % (1.1-6.1); Lymphocytes # (A) 0.99 X 10*3/uL (0.90-5.00); Lymphocytes % (A) 8.4 %; MCH 29.5 pg (27.0-32.0); MCV 92.2 fL (80.0-97.0); Mean Platelet Volume 11.5 fL (9.5-12.2); Monocytes # (A) 0.69 X 10*3/uL (0.20-1.00); Monocytes % (A) 5.9 %; NRBC Per 100 WBC 0.2 /100 WBCS (0.0-0.0); Neutrophils # (A) 9.75 X 10*3/uL (1.80-7.70); Neutrophils % (A) 82.9 %; Platelet Count 11 X 10*3/uL (140-440); RBC 4.48 X 10*6/uL (4.40-5.60); RBC Morphology NORMAL; RDW 15.6 % (11.5-14.5); WBC 11.76 X 10*3/uL (4.50-10.00)
[2022-08-09 16:03] LABS: African American GFR (CKD) 92.7 (60.0-200.0); Albumin 2.8 g/dL (3.8-4.9); Anion Gap 11.1 mmol/L (10.00-18.00); BUN/Creat Ratio 10.95 Ratio (12.00-20.00); Blood Urea Nitrogen 10.8 mg/dL (9.0-27.0); Calcium 7.7 mg/dL (8.7-10.3); Globulin 2.8 g/dL (1.6-3.3); Potassium 3.6 mmol/L (3.5-5.5); Total Protein 5.6 g/dL (6.2-8.2)
== END | disposition home or self-care (01) ==
LOC: LABWHC1 09:57
PROVIDERS: ATTEND Hospitalist
DX: D64.9 Anemia, unspecified (principal)
CPT/HCPCS: 36415; 80053; 82150; 83690; 85025

== ENCOUNTER 2022-08-13 12:51 | Emergency (ER) | payer MEDICARE ==
[2022-08-13 13:39] VITALS: TEMP 97
--- NOTE | 2022-08-13 14:51 | ED ---
Recheck HPI - General Source: patient, family, RN notes reviewed Mode of arrival: wheelchair Limitations: no limitations <Ward Guidry - Last Filed: 08/13/22 14:35> - History of Present Illness MD Complaint: abnormal lab -: days(s) Returns Today for: Called Because of Abnormal Lab/Test Symptoms Since Prior Visit: no new symptoms Context: planned re-check, called for abnormal lab result Associated Symptoms: none <Saúl Lovell - Last Filed: 08/27/22 07:27> - General Chief Complaint: Recheck/Abnormal Lab/Rx Stated Complaint: abn labs Time Seen by Provider: 08/13/22 14:35 - History of Present Illness Initial Comments: 71-year-old male presents emergency Department chief complaint of abnormal labs. Patient received a phone call stating that his platelets come blood counts were low. Patient was recently hospitalized for pancreatitis. Patient states that he has no active bleeding. He denies any fevers or chills states he doesn't feel well states he feels that isn't a pass out. (Ward Guidry) This patient is a 67-year-old man who presents to have further evaluation after being told that his lab results were abnormal. The patient had been in the hospital and then discharged after episode of pancreatitis. He went for follow- up and his platelets were low. He was called later and told to have evaluation. The patient states that he is feeling relatively well. He has not noted any bleeding. No bloody or dark tarry stools, no hematemesis, no blood in his urine. (Saúl Lovell) - Related Data Home Medications Medication Instructions Recorded Confirmed lisinopriL [Zestril] 20 mg PO DAILY 07/11/22 08/01/22 Previous Rx's Medication Instructions Recorded Atorvastatin [Lipitor] 40 mg PO HS #30 tab 07/14/22 Clopidogrel [Plavix] 75 mg PO DAILY 21 Days #21 tab 07/14/22 Famotidine [Pepcid] 20 mg PO HS #30 tablet 07/14/22 Thiamine [Vitamin B-1] 100 mg PO DAILY #30 tab 07/14/22 Acetaminophen Tab [Tylenol Tab] 500 mg PO Q6H PRN #30 tablet 08/07/22 Amoxic-Pot Clav 875-125Mg 1 tab PO BID 10 Days #20 tab 08/07/22 [Augmentin 875-125] Pantoprazole Sodium [Protonix] 40 mg PO DAILY #30 tab 08/07/22 Allergies Allergy/AdvReac Type Severity Reaction Status Date / Time No Known Allergies Allergy Verified 08/13/22 13:39 Review of Systems ROS Other: All systems not noted in ROS Statement are negative. <ChaoWard Holder - Last Filed: 08/13/22 14:35> ROS Other: All systems not noted in ROS Statement are negative. Constitutional: Denies: fever, chills Respiratory: Denies: cough, dyspnea Cardiovascular: Denies: chest pain, palpitations Gastrointestinal: Denies: abdominal pain, vomiting, diarrhea, hematemesis, melena, hematochezia Genitourinary: Denies: dysuria, hematuria Musculoskeletal: Denies: back pain Skin: Denies: rash Neurological: Denies: headache, weakness <Saúl Lovell - Last Filed: 08/27/22 07:27> ROS Statement: Those systems with pertinent positive or pertinent negative responses have been documented in the HPI. Past Medical History Past Medical History: CVA/TIA, Hypertension Additional Past Medical History / Comment(s): Gout. History of Any Multi-Drug Resistant Organisms: None Reported Past Surgical History: No Surgical Hx Reported Additional Past Surgical History / Comment(s): Arthroscopy to right ankle. Past Psychological History: No Psychological Hx Reported Smoking Status: Never smoker Past Alcohol Use History: Daily Past Drug Use History: Marijuana <Ward Guidry Glory - Last Filed: 08/13/22 14:35> General Exam Limitations: no limitations <Ward Guidry Glory - Last Filed: 08/13/22 14:35> General appearance: alert, in no apparent distress Head exam: Present: atraumatic, normocephalic Eye exam: Present: normal appearance. Absent: scleral icterus, conjunctival injection Neck exam: Present: normal inspection Respiratory exam: Present: normal lung sounds bilaterally. Absent: respiratory distress, wheezes, rales, rhonchi, stridor Cardiovascular Exam: Present: regular rate, normal rhythm, normal heart sounds. Absent: systolic murmur, diastolic murmur, rubs, gallop GI/Abdominal exam: Present: soft. Absent: distended, tenderness, guarding, rebound, rigid, mass Extremities exam: Present: normal inspection, normal capillary refill. Absent: pedal edema, calf tenderness Back exam: Present: normal inspection. Absent: CVA tenderness (R), CVA t enderness (L) Neurological exam: Present: alert Skin exam: Present: warm, dry, intact, normal color. Absent: rash <Saúl Lovell - Last Filed: 08/27/22 07:27> Course Vital Signs 08/13/22 08/13/22 08/13/22 13:36 15:15 17:09 Temperature 97 F L Pulse Rate 100 92 86 Respiratory 18 16 Rate Blood Pressure 91/56 78/53 116/72 O2 Sat by Pulse 97 99 100 Oximetry 08/13/22 18:27 Temperature Pulse Rate 86 Respiratory 18 Rate Blood Pressure 143/74 O2 Sat by Pulse 99 Oximetry Medical Decision Making - Lab Data Result diagrams: 08/13/22 15:13 08/13/22 15:13 <Saúl Lovell - Last Filed: 08/27/22 07:27> - Medical Decision Making This patient is 67-year-old man directed to come here after having abnormal lab draw at his follow-up appointment. The patient's platelet value here has increased from that, and is not at level requiring transfusion. The patient has not experiencing any bleeding, and he would like to go home. Patient does appear stable for discharge with near term follow-up for repeat platelet level. We discussed appropriate further care and follow-up as well as return parameters. Was pt. sent in by a medical professional or institution ([facility], [employer], urgent care, hospital, or prison...) When possible be specific @ -Directed here by PCP Did you speak to anyone other than the patient for history (EMS, parent, family, police, friend...)? What history was obtained from this source @ -[Patient's partner Did you review nursing and triage notes (agree or disagree)? Why? @ -[I reviewed and agree with nursing and triage notes] Were old charts reviewed (outside hosp., previous admission, EMS record, old EKG, old radiological studies, urgent care reports/EKG's, prison records)? Report findings @ -[ old charts were reviewed] Differential Diagnosis (chest pain, altered mental status, abdominal pain women, abdominal pain men, vaginal bleeding, weakness, fever, dyspnea, syncope, headache, dizziness, GI bleed, back pain, seizure, CVA, palpatations, mental health, musculoskeletal)? @ - primary bone marrow disorders, chronic liver disease, infection, drug- related adverse effects, occult malignancy, and autoimmune/rheumatologic conditions, among other conditions EKG interpreted by me (3pts min.). @ -[ X-rays interpreted by me (1pt min.). @ -[None done] CT interpreted by me (1pt min.). @ -[None done] U/S interpreted by me (1pt. min.). @ -[None done] What testing was considered but not performed or refused? (CT, X-rays, U/S, labs)? Why? @ -[None] What meds were considered but not given or refused? Why? @ -[None] Did you discuss the management of the patient with other professionals (professionals i.e. , PA, [employer] OF [employer] JUDGE, lab, RT, psych nurse, social psychologist, acid concentrator, teacher, family preservation officer, supportive employment case manager)? Give summary @ -[No] Was smoking cessation discussed for >3mins.? @ -[No] Was critical care preformed (if so, how long)? @ -[No] Were there social determinants of health that impacted care today? How? (Homelessness, low income, unemployed, alcoholism, drug addiction, transportation, low edu. Level, literacy, decrease access to med. care, snf, rehab)? @ -[No] Was there de-escalation of care discussed even if they declined (Discuss DNR or withdrawal of care, Hospice)? DNR status @ -[No] What co-morbidities impacted this encounter? (DM, HTN, Smoking, COPD, CAD, Cancer, CVA, ARF, Chemo, Hep., AIDS, mental health diagnosis, sleep apnea, morbid obesity)? @ -[None] Was patient admitted / discharged? Hospital course, mention meds given and route, prescriptions, significant lab abnormalities, going to OR and other pertinent info. @ -[Discharged Undiagnosed new problem with uncertain prognosis? @ -[No] Drug Therapy requiring intensive monitoring for toxicity (Heparin, Nitro, Insulin, Cardizem)? @ -[No] Were any procedures done? @ -[No] Diagnosis/symptom? @ -[Acute thrombocytopenia, uncomplicated Acute, or Chronic, or Acute on Chronic? @ -[default] Uncomplicated (without systemic symptoms) or Complicated (systemic symptoms)? @ -[default] Side effects of treatment? @ -[No] Exacerbation, Progression, or Severe Exacerbation? @ -[No] Poses a threat to life or bodily function? How? (Chest pain, [place], [place], pneumonia, PE, COPD, DKA, ARF, appy, cholecystitis, CVA, Diverticulitis, Homicidal, Suicidal, threat to staff... and all critical care pts) @ -[No] (Saúl Lovell) - Lab Data Lab Results 08/13/22 08/13/22 08/13/22 Range/Units 15:13 15:13 15:13 WBC 8.7 (3.8-10.6) k/uL RBC 4.51 (4.30-5.90) m/uL Hgb 13.7 (13.0-17.5) gm/dL Hct 42.2 (39.0-53.0) % MCV 93.5 (80.0-100.0) fL MCH 30.3 (25.0-35.0) pg MCHC 32.4 (31.0-37.0) g/dL RDW 14.4 (11.5-15.5) % Plt Count 50 L D (150-450) k/uL MPV 12.3 Neutrophils % 75 % Lymphocytes % 17 % Monocytes % 5 % Eosinophils % 1 % Basophils % 0 % Neutrophils # 6.5 (1.3-7.7) k/uL Lymphocytes # 1.5 (1.0-4.8) k/uL Monocytes # 0.4 (0-1.0) k/uL Eosinophils # 0.1 (0-0.7) k/uL Basophils # 0.0 (0-0.2) k/uL Sodium 131 L (137-145) mmol/L Potassium 4.5 (3.5-5.1) mmol/L Chloride 96 L (98-107) mmol/L Carbon Dioxide 25 (22-30) mmol/L Anion Gap 10 mmol/L BUN 16 (9-20) mg/dL Creatinine 0.91 (0.66-1.25) mg/dL Est GFR (CKD-EPI)AfAm >90 (>60 ml/min/1.73 sqM) Est GFR (CKD-EPI)NonAf 88 (>60 ml/min/1.73 sqM) Glucose 176 H (74-99) mg/dL Calcium 8.5 (8.4-10.2) mg/dL Magnesium 2.1 (1.6-2.3) mg/dL Total Bilirubin 1.4 H (0.2-1.3) mg/dL AST 48 (17-59) U/L ALT 32 (4-49) U/L Alkaline Phosphatase 109 (38-126) U/L Total Protein 6.8 (6.3-8.2) g/dL Albumin 3.2 L (3.5-5.0) g/dL Urine Color [place] Urine Appearance Cloudy (Clear) Urine pH 5.5 (5.0-8.0) Ur Specific [place] 1.029 (1.001-1.035) Urine Protein 1+ H (Negative) Urine Glucose (UA) Trace H (Negative) Urine Ketones Negative (Negative) Urine Blood Negative (Negative) Urine Nitrite Negative (Negative) Urine Bilirubin Negative (Negative) Urine Urobilinogen 6.0 (<2.0) mg/dL Ur Leukocyte Esterase Trace H (Negative) Urine RBC <1 (0-5) /hpf Urine WBC 5 (0-5) /hpf Urine Bacteria Few H (None) /hpf Hyaline Casts 29 H (0-2) /lpf Urine Mucus Many H (None) /hpf Disposition <Ward Guidry - Last Filed: 08/13/22 14:35> Is patient prescribed a controlled substance at d/c from ED?: No <Saúl Lovell - Last Filed: 08/27/22 07:27> Clinical Impression: Thrombocytopenia Disposition: HOME SELF-CARE Condition: Good Instructions (If sedation given, give patient instructions): Thrombocytopenia (ED) Referrals: Nonstaff,Physician [REFERRING] - 1-2 days David Fierro MD [STAFF PHYSICIAN] - 1-2 days
[2022-08-13 15:58] LABS: Basophils % (A) 0 %; Eosinophils # (A) 0.1 k/uL (0-0.7); Eosinophils % (A) 1 %; HCT 42.2 % (39.0-53.0); HGB 13.7 gm/dL (13.0-17.5); Lymphocytes # (A) 1.5 k/uL (1.0-4.8); Lymphocytes % (A) 17 %; MCH 30.3 pg (25.0-35.0); MCHC 32.4 g/dL (31.0-37.0); MCV 93.5 fL (80.0-100.0); Mean Platelet Volume 12.3; Monocytes # (A) 0.4 k/uL (0-1.0); Monocytes % (A) 5 %; Neutrophils # (A) 6.5 k/uL (1.3-7.7); Neutrophils % (A) 75 %; RBC 4.51 m/uL (4.30-5.90); RDW 14.4 % (11.5-15.5); WBC 8.7 k/uL (3.8-10.6)
[2022-08-13 16:09] LABS: ALT 32 U/L (4-49); AST 48 U/L (17-59); African American GFR (CKD) >90 (>60 ml/min/1.73 sqM); Albumin 3.2 g/dL (3.5-5.0); Alkaline Phosphatase 109 U/L (38-126); Blood Urea Nitrogen 16 mg/dL (9-20); Calcium 8.5 mg/dL (8.4-10.2); Carbon Dioxide 25 mmol/L (22-30); Glucose 176 mg/dL (74-99); Magnesium 2.1 mg/dL (1.6-2.3); Non-African American GFR(CKD) 88 (>60 ml/min/1.73 sqM); Potassium 4.5 mmol/L (3.5-5.1); Sodium 131 mmol/L (137-145); Total Bilirubin 1.4 mg/dL (0.2-1.3); Total Protein 6.8 g/dL (6.3-8.2)
[2022-08-13 16:44] LABS: Platelet Count 50 k/uL (150-450)
[2022-08-13 16:58] LABS: Appearance,Urine Cloudy (Clear); Bacteria,Urine Few /hpf; Bilirubin,Urine Negative (Negative); Blood,Urine Negative (Negative); Color,Urine Orange; Glucose,Urine (UA) Trace (Negative); Hyaline Casts,Urine 29 /lpf (0-2); Ketones,Urine Negative (Negative); Leukocyte Esterase,Urine Trace (Negative); Mucus,Urine Many /hpf; Nitrite,Urine Negative (Negative); PH, Urine 5.5 (5.0-8.0); Protein,Urine 1+ (Negative); RBC,Urine <1 /hpf (0-5); Specific Gravity,Urine 1.029 (1.001-1.035); WBC,Urine 5 /hpf (0-5)
[2022-08-13 17:15] VITALS: PULSE 86
[2022-08-13 17:48] LABS: Anion Gap 10 mmol/L; Chloride 96 mmol/L (98-107)
[2022-08-13 18:29] VITALS: BP 143/74; RESP 18
== END 2022-08-13 18:32 | disposition home or self-care (01) ==
LOC: EC 12:51
DX: D69.6 Thrombocytopenia, unspecified (principal); I10 Essential (primary) hypertension; F12.90 Cannabis use, unspecified, uncomplicated; Z86.73 Personal history of transient ischemic attack (TIA), and cerebral infarction without residual deficits; Z79.899 Other long term (current) drug therapy
CPT/HCPCS: 36415; 80053; 81001; 83735; 85025; 93005; 99284

== ENCOUNTER → 2022-08-15 | Outpatient (CLI) | payer MEDICARE, OTHER ==
[2022-08-15 16:08] LABS: Basophils # (A) 0.04 X 10*3/uL (0.00-0.10); Basophils % (A) 0.5 %; Eosinophils # (A) 0.09 X 10*3/uL (0.04-0.35); Eosinophils % (A) 1.2 %; HCT 40.4 % (39.6-50.0); HGB 12.8 g/dL (13.0-17.0); Immature Grans, Automated 0.7 %; Lymphocytes # (A) 1.12 X 10*3/uL (0.90-5.00); Lymphocytes % (A) 14.6 %; MCH 29.3 pg (27.0-32.0); MCHC 31.7 g/dL (32.0-37.0); MCV 92.4 fL (80.0-97.0); Mean Platelet Volume 12.6 fL (9.5-12.2); Monocytes # (A) 0.64 X 10*3/uL (0.20-1.00); Monocytes % (A) 8.3 %; NRBC Per 100 WBC 0 /100 WBCS (0.0-0.0); Neutrophils # (A) 5.75 X 10*3/uL (1.80-7.70); Neutrophils % (A) 74.7 %; Platelet Count 72 X 10*3/uL (140-440); RBC 4.37 X 10*6/uL (4.40-5.60); RDW 15.1 % (11.5-14.5); WBC 7.69 X 10*3/uL (4.50-10.00)
== END | disposition home or self-care (01) ==
LOC: LABWHC1 09:32
PROVIDERS: ATTEND Nurse Practitioner
DX: D69.6 Thrombocytopenia, unspecified (principal)
CPT/HCPCS: 36415; 85025

== ENCOUNTER → 2022-09-20 | Outpatient (CLI) | payer MEDICARE, OTHER ==
[2022-09-20 12:01] LABS: African American GFR (CKD) >90 (>60 ml/min/1.73 sqM); Blood Urea Nitrogen 12 mg/dL (9-20); Non-African American GFR(CKD) >90 (>60 ml/min/1.73 sqM)
--- NOTE | 2022-09-20 18:09 | CT ---
EXAMINATION TYPE: CT pancreas biphase DATE OF EXAM: 09/20/2022 COMPARISON: 08/02/2022 INDICATION: upper abdominal pain, attention pancreas DLP: 1325.9 mGycm, Automated exposure control for dose reduction was used. CONTRAST: 100 mL of Isovue 370. Study performed with Oral Contrast TECHNIQUE: Axial images were obtained from above the diaphragm to the pubic rami in the axial plane a t 5 mm thick sections. Reconstructed images are reviewed on the computer in the coronal plane. FINDINGS: Limited CT sections are obtained the lung bases. Some mild subsegmental atelectasis may be in the de pendent lung bases bilaterally. CT ABDOMEN: Liver: Normal Spleen: Normal Pancreas: Distal to the tail of the pancreas is a 2.2 x 1.6 cm collection with irregular marin. This is hypodense in the center. Abscess inferior to the spleen may be present. Example image series 5 manjinder ge 53. There is dilated hypodense area within the expected region of the pancreatic duct. This contains mult iple punctate areas of air. Abscess formation should be considered. Within the region of the tail of the pancreas is measures 7.7 x 2.1 cm in size. Within the body the pancreas duct the diameter is 1.3 cm. Pancreatic duct at the head of the pancreas is prominent measuring 0.7 cm (normal less than 0.3 c m.) Minimal inflammatory changes inferior to the head of the pancreas. Small lymph nodes are in the p eriaortic region at the level of the pancreatic head. Findings are suspicious for pancreatic abscess. Correlate with patient's symptoms. Adrenal glands: The adrenal glands are normal. Gallbladder: Normal Kidneys: No masses are evident. No hydronephrosis is present. No cysts are present. Delayed images were obtained through the kidneys, which remain unremarkable. Aorta: Vascular calcification is within the aorta. Inferior vena cava: Normal. IMPRESSIONS: 1. Mixed air and low density material through the expected region of the pancreatic duct. This is di lated and prominent and may have extension to just inferior to the tip of the spleen. Findings are rivero ggestive for abscess formation. Correlate with patient's symptoms and close follow-up recommended. 2. Pancreatic duct at the head of the pancreas is without air bubbles but remains dilated. 3. There is some inflammatory change adjacent to the pancreas. A [place] critical message alert has been initiated for Hamzah Alaniz MD via the [employer] Critical Results System on 09/20/2022 6:05 PM. This message alert has been sent to Hamzah Alaniz MD via the preferences provided by the clinician for the receipt of Radiology Critical Findi ngs. Message ID [id number].
== END | disposition home or self-care (01) ==
LOC: RADCTMAIN 11:19
PROVIDERS: ATTEND Family Medicine
DX: R10.84 Generalized abdominal pain (principal); K86.89 Other specified diseases of pancreas; F10.11 Alcohol abuse, in remission; Z87.19 Personal history of other diseases of the digestive system
CPT/HCPCS: 82565; 84520; 36415; 74160; Q9967

== ENCOUNTER 2023-03-03 01:07 | Emergency (ER) | payer MEDICARE, OTHER ==
[2023-03-03] MEDS ORDERED: SODIUM CHLORIDE 0.9% 1,000 ML IV STA (01:15)
[2023-03-03 01:17] VITALS: RESP 18; TEMP 97.6
[2023-03-03 01:37] LABS: Anisocytosis Slight; Basophils # (A) 0.1 k/uL (0-0.2); Basophils % (A) 1 %; Eosinophils # (A) 0.2 k/uL (0-0.7); Eosinophils % (A) 3 %; HCT 46.2 % (39.0-53.0); HGB 14.7 gm/dL (13.0-17.5); Lymphocytes # (A) 3.8 k/uL (1.0-4.8); Lymphocytes % (A) 52 %; MCH 26.9 pg (25.0-35.0); MCHC 31.7 g/dL (31.0-37.0); MCV 84.8 fL (80.0-100.0); Mean Platelet Volume 8.3; Monocytes # (A) 0.4 k/uL (0-1.0); Monocytes % (A) 5 %; Neutrophils # (A) 2.7 k/uL (1.3-7.7); Neutrophils % (A) 37 %; Platelet Count 171 k/uL (150-450); RBC 5.45 m/uL (4.30-5.90); RDW 16.2 % (11.5-15.5); WBC 7.4 k/uL (3.8-10.6)
[2023-03-03] MEDS ORDERED: ONDANSETRON 4 MG/2 ML VIAL IVP STA (01:39)
[2023-03-03] MEDS ORDERED: MORPHINE SULFATE 4 MG/ML SYRINGE IVP STA (01:39)
[2023-03-03 02:09] LABS: ALT 20 U/L (4-49); AST 50 U/L (17-59); African American GFR (CKD) >90 (>60 ml/min/1.73 sqM); Albumin 4.4 g/dL (3.5-5.0); Alkaline Phosphatase 71 U/L (38-126); Anion Gap 11 mmol/L; Blood Urea Nitrogen 18 mg/dL (9-20); Calcium 9.3 mg/dL (8.4-10.2); Carbon Dioxide 28 mmol/L (22-30); Chloride 103 mmol/L (98-107); Glucose 148 mg/dL (74-99); Lipase 161 U/L (23-300); Non-African American GFR(CKD) >90 (>60 ml/min/1.73 sqM); Potassium 3.7 mmol/L (3.5-5.1); Sodium 142 mmol/L (137-145); Total Bilirubin 0.6 mg/dL (0.2-1.3); Total Protein 8.2 g/dL (6.3-8.2)
[2023-03-03 02:13] LABS: Appearance,Urine Clear (Clear); Bilirubin,Urine Negative (Negative); Blood,Urine Negative (Negative); Color,Urine Light Yellow; Glucose,Urine (UA) Negative (Negative); Ketones,Urine Negative (Negative); Leukocyte Esterase,Urine Negative (Negative); Nitrite,Urine Negative (Negative); Protein,Urine Trace (Negative); Specific Gravity,Urine 1.024 (1.001-1.035); Urobilinogen,Urine <2.0 mg/dL (<2.0)
[2023-03-03 03:10] VITALS: BP 142/88; PULSE 58
--- NOTE | 2023-03-03 03:12 | ED ---
Abdominal Pain HPI - General Chief Complaint: Abdominal Pain Stated Complaint: Abdominal Pain Time Seen by Provider: 03/03/23 01:15 Source: patient Mode of arrival: ambulatory Limitations: no limitations - History of Present Illness Initial Comments: 67-year-old male with past medical history of stroke presents the emergency department with periumbilical abdominal pain. States that the pain started a few hours prior to hospital arrival. He did have a colonoscopy on Friday. States that since the colonoscopy has not had a bowel movement. He is not taking any medications in order to help him have a bowel movement. He continues to pass gas. States that today he ate very poorly today and he consumed a large amount of candy. It was after the ingestion that it began to hurt. He denies numbness, tingling or weakness in his extremities. No changes in his bladder habits to include dysuria, hematuria or difficulty voiding. No fevers. Does have a history of pancreatitis from drinking. States that he has significantly cut down the amount of alcohol that he ingests. His last drink was 2 weeks ago for his brother's birthday. Denies any chest pain or shortness of breath. No other alleviating, precipitating or modifying factors - Related Data Home Medications Medication Instructions Recorded Confirmed lisinopriL [Zestril] 20 mg PO DAILY 07/11/22 08/01/22 Previous Rx's Medication Instructions Recorded Atorvastatin [Lipitor] 40 mg PO HS #30 tab 07/14/22 Clopidogrel [Plavix] 75 mg PO DAILY 21 Days #21 tab 07/14/22 Famotidine [Pepcid] 20 mg PO HS #30 tablet 07/14/22 Thiamine [Vitamin B-1] 100 mg PO DAILY #30 tab 07/14/22 Acetaminophen Tab [Tylenol Tab] 500 mg PO Q6H PRN #30 tablet 08/07/22 Amoxic-Pot Clav 875-125Mg 1 tab PO BID 10 Days #20 tab 08/07/22 [Augmentin 875-125] Pantoprazole Sodium [Protonix] 40 mg PO DAILY #30 tab 08/07/22 polyethylene glycoL 3350 [Miralax] 17 gm PO DAILY PRN #527 gm 03/03/23 Allergies Allergy/AdvReac Type Severity Reaction Status Date / Time No Known Allergies Allergy Verified 03/03/23 01:10 Review of Systems ROS Statement: Those systems with pertinent positive or pertinent negative responses have been documented in the HPI. ROS Other: All systems not noted in ROS Statement are negative. Past Medical History Past Medical History: CVA/TIA, Hypertension Additional Past Medical History / Comment(s): Gout. pancreatitis History of Any Multi-Drug Resistant Organisms: None Reported Past Surgical History: No Surgical Hx Reported Additional Past Surgical History / Comment(s): Arthroscopy to right ankle. Past Psychological History: No Psychological Hx Reported Smoking Status: Never smoker Past Alcohol Use History: Daily Past Drug Use History: Marijuana General Exam Limitations: no limitations General appearance: alert, in no apparent distress Head exam: Present: atraumatic, normocephalic, normal inspection Eye exam: Present: normal appearance, PERRL, EOMI. Absent: scleral icterus, conjunctival injection, periorbital swelling ENT exam: Present: normal exam, mucous membranes moist Neck exam: Present: normal inspection. Absent: tenderness, meningismus, lymphadenopathy Respiratory exam: Present: normal lung sounds bilaterally. Absent: respiratory distress, wheezes, rales, rhonchi, stridor Cardiovascular Exam: Present: regular rate, normal rhythm, normal heart sounds. Absent: systolic murmur, diastolic murmur, rubs, gallop, clicks GI/Abdominal exam: Present: soft, normal bowel sounds. Absent: distended, tenderness, guarding, rebound, rigid Extremities exam: Present: normal inspection, full ROM, normal capillary refill. Absent: tenderness, pedal edema, joint swelling, calf tenderness Back exam: Present: normal inspection Neurological exam: Present: alert, oriented X3, CN II-XII intact Psychiatric exam: Present: normal affect, normal mood Skin exam: Present: warm, dry, intact, normal color. Absent: rash Course Vital Signs 03/03/23 03/03/23 03/03/23 01:11 02:05 03:06 Temperature 97.6 F Pulse Rate 61 60 58 L Respiratory 18 18 18 Rate Blood Pressure 220/107 148/56 142/88 O2 Sat by Pulse 98 98 99 Oximetry Medical Decision Making - Medical Decision Making Was pt. sent in by a medical professional or institution (, PA, BALING PRESS OPERATOR, urgent care, hospital, or [facility]...) When possible be specific @ -No Did you speak to anyone other than the patient for history (EMS, parent, family, police, friend...)? What history was obtained from this source @ -No Did you review nursing and triage notes (agree or disagree)? Why? @ -I reviewed and agree with nursing and triage notes Were old charts reviewed (outside hosp., previous admission, EMS record, old EKG, old radiological studies, urgent care reports/EKG's, [facility] records)? Report findings @ -No old charts were reviewed Differential Diagnosis (chest pain, altered mental status, abdominal pain women, abdominal pain men, vaginal bleeding, weakness, fever, dyspnea, syncope, headache, dizziness, GI bleed, back pain, seizure, CVA, palpatations, mental health, musculoskeletal)? @ -Differential Abdominal Pain Men: Appendicitis, cholecystitis, diverticulosis, ischemic bowel, pancreatitis, hepatitis, UTI, gastroenteritis, AAA, incarcerated hernia, bowel obstruction, constipation, inflammatory bowel, hepatitis, peptic ulcer disease, splenic infarction, perforated viscus, testicular torsion, this is not meant to be an all-inclusive list EKG interpreted by me (3pts min.). @ -Yes and demonstrates sinus rhythm with a rate of 60. TN interval 171. QRS 106. QTC 385. No acute ST segment elevations or depressions X-rays interpreted by me (1pt min.). @ -yes and demonstrates no acute intra-abdominal process CT interpreted by me (1pt min.). @ -None done U/S interpreted by me (1pt. min.). @ -None done What testing was considered but not performed or refused? (CT, X-rays, U/S, labs)? Why? @ -None What meds were considered but not given or refused? Why? @ -None Did you discuss the management of the patient with other professionals (professionals i.e. , PA, BALING PRESS OPERATOR, lab, RT, psych nurse, social service technician, wharf helper, teacher, risk control officer, immigration case worker)? Give summary @ -No Was smoking cessation discussed for >3mins.? @ -No Was critical care preformed (if so, how long)? @ -No Were there social determinants of health that impacted care today? How? (Homelessness, low income, unemployed, alcoholism, drug addiction, transportation, low edu. Level, literacy, decrease access to med. care, residential, rehab)? @ -No Was there de-escalation of care discussed even if they declined (Discuss DNR or withdrawal of care, Hospice)? DNR status @ -No What co-morbidities impacted this encounter? (DM, HTN, Smoking, COPD, CAD, Cancer, CVA, ARF, Chemo, Hep., AIDS, mental health diagnosis, sleep apnea, morbid obesity)? @ -History of pancreatitis Was patient admitted / discharged? Hospital course, mention meds given and route, prescriptions, significant lab abnormalities, going to OR and other pertinent info. @ -Upon arrival patient had been placed into room 8. A thorough history and physical exam was performed. IV access is established. Patient was given nausea and pain medications. Laboratory studies are conducted. Patient does go for x-ray. Upon return I did reassess the patient. He did have a bowel movement while he was in the emergency department and feels significantly better. X-ray continues to demonstrate some stool in the colon. Did discuss methods of helping him move his bowels. Patient will increase his fiber intake. He is also to drink prune juice. I sent a prescription for Mira[facility]X to [facility]. He is to utilize these methods to help him have smoother bowel movements. Follow up with his doctor for reevaluation and return for any new or worsening symptoms. Patient discharged in stable condition Undiagnosed new problem with uncertain prognosis? @ -No Drug Therapy requiring intensive monitoring for toxicity (Heparin, Nitro, Insulin, Cardizem)? @ -No Were any procedures done? @ -No Diagnosis/symptom? @ -acute abdominal pain, acute constipation Acute, or Chronic, or Acute on Chronic? @ -acute Uncomplicated (without systemic symptoms) or Complicated (systemic symptoms)? @ -Complicated Side effects of treatment? @ -No Exacerbation, Progression, or Severe Exacerbation? @ -No Poses a threat to life or bodily function? How? (Chest pain, [place], NH, pneumonia, PE, COPD, DKA, ARF, appy, cholecystitis, CVA, Diverticulitis, Homicidal, Suicidal, threat to staff... and all critical care pts) @ -No - Lab Data Result diagrams: 03/03/23 01:03/03/23: Lab Results 03/03/23 03/03/23 03/03/23 Range/Units : 01: 01:23 WBC 7.4 (3.8-10.6) k/uL RBC 5.45 (4.30-5.90) m/uL Hgb 14.7 (13.0-17.5) gm/dL Hct 46.2 (39.0-53.0) % MCV 84.8 (80.0-100.0) fL MCH 26.9 (25.0-35.0) pg MCHC 31.7 (31.0-37.0) g/dL RDW 16.2 H (11.5-15.5) % Plt Count 171 (150-450) k/uL MPV 8.3 Neutrophils % 37 % Lymphocytes % 52 % Monocytes % 5 % Eosinophils % 3 % Basophils % 1 % Neutrophils # 2.7 (1.3-7.7) k/uL Lymphocytes # 3.8 (1.0-4.8) k/uL Monocytes # 0.4 (0-1.0) k/uL Eosinophils # 0.2 (0-0.7) k/uL Basophils # 0.1 (0-0.2) k/uL Anisocytosis Slight Sodium 142 (137-145) mmol/L Potassium 3.7 (3.5-5.1) mmol/L Chloride 103 (98-107) mmol/L Carbon Dioxide 28 (22-30) mmol/L Anion Gap 11 mmol/L BUN 18 (9-20) mg/dL Creatinine 0.79 (0.66-1.25) mg/dL Est GFR (CKD-EPI)AfAm >90 (>60 ml/min/1.73 sqM) Est GFR (CKD-EPI)NonAf >90 (>60 ml/min/1.73 sqM) Glucose 148 H (74-99) mg/dL Plasma Lactic Acid Hung (0.7-2.0) mmol/L Calcium 9.3 (8.4-10.2) mg/dL Total Bilirubin 0.6 (0.2-1.3) mg/dL AST 50 (17-59) U/L ALT 20 (4-49) U/L Alkaline Phosphatase 71 (38-126) U/L Troponin I (0.000-0.034) ng/mL Total Protein 8.2 (6.3-8.2) g/dL Albumin 4.4 (3.5-5.0) g/dL Lipase 161 (23-300) U/L Urine Color Light Yellow Urine Appearance Clear (Clear) Urine pH 6.0 (5.0-8.0) Ur Specific Vega 1.024 (1.001-1.035) Urine Protein Trace H (Negative) Urine Glucose (UA) Negative (Negative) Urine Ketones Negative (Negative) Urine Blood Negative (Negative) Urine Nitrite Negative (Negative) Urine Bilirubin Negative (Negative) Urine Urobilinogen <2.0 (<2.0) mg/dL Ur Leukocyte Esterase Negative (Negative) 03/03/23 03/03/23 Range/Units 01:23 01:23 WBC (3.8-10.6) k/uL RBC (4.30-5.90) m/uL Hgb (13.0-17.5) gm/dL Hct (39.0-53.0) % MCV (80.0-100.0) fL MCH (25.0-35.0) pg MCHC (31.0-37.0) g/dL RDW (11.5-15.5) % Plt Count (150-450) k/uL MPV Neutrophils % % Lymphocytes % % Monocytes % % Eosinophils % % Basophils % % Neutrophils # (1.3-7.7) k/uL Lymphocytes # (1.0-4.8) k/uL Monocytes # (0-1.0) k/uL Eosinophils # (0-0.7) k/uL Basophils # (0-0.2) k/uL Anisocytosis Sodium (137-145) mmol/L Potassium (3.5-5.1) mmol/L Chloride (98-107) mmol/L Carbon Dioxide (22-30) mmol/L Anion Gap mmol/L BUN (9-20) mg/dL Creatinine (0.66-1.25) mg/dL Est GFR (CKD-EPI)AfAm (>60 ml/min/1.73 sqM) Est GFR (CKD-EPI)NonAf (>60 ml/min/1.73 sqM) Glucose (74-99) mg/dL Plasma Lactic Acid Hung 0.8 (0.7-2.0) mmol/L Calcium (8.4-10.2) mg/dL Total Bilirubin (0.2-1.3) mg/dL AST (17-59) U/L ALT (4-49) U/L Alkaline Phosphatase (38-126) U/L Troponin I <0.012 (0.000-0.034) ng/mL Total Protein (6.3-8.2) g/dL Albumin (3.5-5.0) g/dL Lipase (23-300) U/L Urine Color Urine Appearance (Clear) Urine pH (5.0-8.0) Ur Specific Vega (1.001-1.035) Urine Protein (Negative) Urine Glucose (UA) (Negative) Urine Ketones (Negative) Urine Blood (Negative) Urine Nitrite (Negative) Urine Bilirubin (Negative) Urine Urobilinogen (<2.0) mg/dL Ur Leukocyte Esterase (Negative) Disposition Clinical Impression: Abdominal pain, Constipation Disposition: HOME SELF-CARE Condition: Stable Instructions (If sedation given, give patient instructions): Abdominal Pain (ED) Additional Instructions: Please eat foods high in fiber. Use the miralax if needed for constipation. Return for any new or worsening symptoms. Prescriptions: polyethylene glycoL 3350 [Miralax] 17 gm PO DAILY PRN #527 gm PRN Reason: Constipation Is patient prescribed a controlled substance at d/c from ED?: No Referrals: Hamzah Alaniz MD [Primary Care Provider] - 1-2 days Time of Disposition: 03:12
--- NOTE | 2023-03-03 07:09 | XR ---
EXAM: XR Abdomen, 1 View CLINICAL HISTORY: ITS.REASON XR Reason: abd pain TECHNIQUE: Frontal upright view of the abdomen/pelvis. 2 images COMPARISON: No relevant prior studies available. FINDINGS: Gastrointestinal tract: Unremarkable. No dilation. No free air. Bones/joints: Degenerative changes of the spine. No acute fracture. IMPRESSION: No evidence of acute abnormality
== END 2023-03-03 02:10 | disposition home or self-care (01) ==
LOC: EC 01:07
DX: K59.00 Constipation, unspecified (principal); I10 Essential (primary) hypertension; F12.90 Cannabis use, unspecified, uncomplicated; Z79.899 Other long term (current) drug therapy
CPT/HCPCS: 36415; 93005; 80053; 83605; 83690; 84484; 85025; 81003; 74018; 99284; 96374; 96375; 96361 ×2; J2270; J2405

== ENCOUNTER 2023-10-18 01:18 | Inpatient (IN) | payer MEDICARE, OTHER ==
[2023-10-18] MEDS: ONDANSETRON 4 MG/2 ML VIAL IVP STA (02:11)
[2023-10-18] MEDS: MORPHINE SULFATE 4 MG/ML SYRINGE IVP STA (02:12)
[2023-10-18] MEDS: PANTOPRAZOLE 40 MG/10 ML VIAL IVP STA (02:14)
[2023-10-18] MEDS: SODIUM CHLORIDE 0.9% 1,000 ML IV STA (02:16)
[2023-10-18] MEDS: HYDROmorphone 0.5 MG/0.5 ML SYRINGE IVP STA (02:41)
--- NOTE | 2023-10-18 02:43 | ED ---
General Adult HPI - General Chief complaint: Abdominal Pain Stated complaint: abd pain elevated BP Time Seen by Provider: 10/18/23 01:35 Source: patient, RN notes reviewed, old records reviewed Mode of arrival: ambulatory - History of Present Illness Initial comments: Patient is a 68-year-old male who presents emergency department complaining of abdominal pain. States this pain is similar to pain he felt when he was diagnosed with pancreatitis. Has a history of hypertension, CVA with no residual symptoms, pancreatitis. Endorses daily alcohol use. Per chart, also uses marijuana. Denies any diarrhea, constipation. Endorses nausea but no emesis. States the pain radiates from the epigastrium and towards his back. Does involve his chest just above the stomach as well. Presents for further evaluation at this time. Symptoms started this evening. - Related Data Home Medications Medication Instructions Recorded Confirmed lisinopriL [Zestril] 20 mg PO DAILY 07/11/22 08/01/22 Previous Rx's Medication Instructions Recorded Atorvastatin [Lipitor] 40 mg PO HS #30 tab 07/14/22 Clopidogrel [Plavix] 75 mg PO DAILY 21 Days #21 tab 07/14/22 Famotidine [Pepcid] 20 mg PO HS #30 tablet 07/14/22 Thiamine [Vitamin B-1] 100 mg PO DAILY #30 tab 07/14/22 Acetaminophen Tab [Tylenol Tab] 500 mg PO Q6H PRN #30 tablet 08/07/22 Amoxic-Pot Clav 875-125Mg 1 tab PO BID 10 Days #20 tab 08/07/22 [Augmentin 875-125] Pantoprazole Sodium [Protonix] 40 mg PO DAILY #30 tab 08/07/22 polyethylene glycoL 3350 [Miralax] 17 gm PO DAILY PRN #527 gm 03/03/23 Allergies Allergy/AdvReac Type Severity Reaction Status Date / Time No Known Allergies Allergy Verified 10/18/23 01:25 Review of Systems ROS Statement: Those systems with pertinent positive or pertinent negative responses have been documented in the HPI. Review of Systems: CONST: Denies fever EYES: Denies blurry vision ENT: Denies nasal congestion C/V: Denies Chest pain RESP: Denies shortness of breath GI: Endorses abdominal pain : Denies dysuria SKIN: Denies rash. MSK: Denies joint pain. NEURO: Denies headache ROS Other: All systems not noted in ROS Statement are negative. Past Medical History Past Medical History: CVA/TIA, Hypertension Additional Past Medical History / Comment(s): Gout. pancreatitis History of Any Multi-Drug Resistant Organisms: None Reported Past Surgical History: No Surgical Hx Reported Additional Past Surgical History / Comment(s): Arthroscopy to right ankle. Past Psychological History: No Psychological Hx Reported Smoking Status: Never smoker Past Alcohol Use History: Daily Past Drug Use History: Marijuana General Exam - General Exam Comments Initial Comments: General: Appears in mild distress secondary to abdominal pain. HEAD: Normal with no signs of head trauma. EYES: PERRLA, EOMI, conjunctiva normal, no discharge. ENT: Hearing grossly intact, normal oropharynx. RESPIRATORY: Clear breath sounds bilaterally. No wheezes, rales, or rhonchi. C/V: Regular rate and rhythm. S1 and S2 auscultated, no edema, peripheral pulses 2+ and intact throughout ABD: Abdomen is soft, nondistended. Tender palpation epigastrium. No guarding or rebound tenderness. No peritoneal signs. EXT: No obvious deformity. SKIN: No rashes or lesions observed on exposed skin. NEURO: Alert and oriented x 4 Course Vital Signs 10/18/23 10/18/23 10/18/23 01:22 01:25 02:25 Temperature 98.8 F Pulse Rate 63 75 76 Respiratory 18 18 18 Rate Blood Pressure 197/105 148/94 143/86 O2 Sat by Pulse 99 98 96 Oximetry 10/18/23 10/18/23 10/18/23 05:45 06:00 07:00 Temperature 97.5 F L Pulse Rate 57 L 53 L 55 L Respiratory 16 16 18 Rate Blood Pressure 120/82 120/82 120/82 O2 Sat by Pulse 97 94 L 94 L Oximetry Medical Decision Making - Medical Decision Making Was pt. sent in by a medical professional or institution (, PA, MACHINE WELDER, urgent care, hospital, or shelter...) When possible be specific @ -No Did you speak to anyone other than the patient for history (EMS, parent, family, police, friend...)? What history was obtained from this source @ -No Did you review nursing and triage notes (agree or disagree)? Why? @ -I reviewed and agree with nursing and triage notes Were old charts reviewed (outside hosp., previous admission, EMS record, old EKG, old radiological studies, urgent care reports/EKG's, shelter records)? Report findings @ -EKG reviewed from February 2023. No substantial dynamic changes on today's EKG. Differential Diagnosis (chest pain, altered mental status, abdominal pain women, abdominal pain men, vaginal bleeding, weakness, fever, dyspnea, syncope, headache, dizziness, GI bleed, back pain, seizure, CVA, palpatations, mental health, musculoskeletal)? @ -Differential Abdominal Pain Men: Appendicitis, cholecystitis, diverticulosis, ischemic bowel, pancreatitis, hepatitis, UTI, gastroenteritis, AAA, incarcerated hernia, bowel obstruction, constipation, inflammatory bowel, hepatitis, peptic ulcer disease, splenic infarction, perforated viscus, testicular torsion, this is not meant to be an all-inclusive list EKG interpreted by me (3pts min.). @ -As above X-rays interpreted by me (1pt min.). @ -None done CT interpreted by me (1pt min.). @ -Imaging reveals findings on CT consistent with chronic changes of the pancreas as well as possible cystitis. No significant pancreatitis complication. U/S interpreted by me (1pt. min.). @ -None done What testing was considered but not performed or refused? (CT, X-rays, U/S, labs)? Why? @ -None What meds were considered but not given or refused? Why? @ -None Did you discuss the management of the patient with other professionals (professionals i.e. , PA, MACHINE WELDER, lab, RT, psych nurse, social work manager, loan counselor, teacher, planned giving officer, director of casework services)? Give summary @ -[facility] the [facility] who is covering for Dr. Alaniz who accepted the admission. Was smoking cessation discussed for >3mins.? @ -No Was critical care preformed (if so, how long)? @ -yes, 40 minutes Were there social determinants of health that impacted care today? How? (Homelessness, low income, unemployed, alcoholism, drug addiction, transportation, low edu. Level, literacy, decrease access to med. care, [facility], rehab)? @ -No Was there de-escalation of care discussed even if they declined (Discuss DNR or withdrawal of care, Hospice)? DNR status @ -No What co-morbidities impacted this encounter? (DM, HTN, Smoking, COPD, CAD, Cancer, CVA, ARF, Chemo, Hep., AIDS, mental health diagnosis, sleep apnea, morbid obesity)? @ -None Was patient admitted / discharged? Hospital course, mention meds given and route, prescriptions, significant lab abnormalities, going to OR and other [facility] [place] info. @ -Patient presents emergency department complaining of abdominal pain. States it is like his prior pancreatitis pain. We will obtain abdominal workup. Patient be symptomatically treated with IV analgesia medications, Zofran, Protonix, fluids. Atypical ACS screening will also be obtained. Patient was in agreement this plan. Vital signs remarkable for hypertension which improved w ith analgesia medications. EKG shows no signs of acute ischemia.Patient remarkable for no significant pancreatitis complication. Chronic findings. Possible cystitis however patient has a normal urinalysis. Patient's laboratory studies are remarkable for indeterminate troponin 0.028. Lipase is 537 concerning for acute pancreatitis. Remainder the workup unremarkable. Will repeat the troponin. Patient's symptoms have resolved following analgesia medications. Long delay in obtaining CT imaging results. Second 3-hour troponin will be obtained. CT imaging returned negative for any obvious acute process, chronic changes noted pancreas present. Repeat troponin did increase to 0.077. On reevaluation, due to the elevation in troponin I did want to admit the patient for an NSTEMI. He was given 324 mg of aspirin and started on a heparin drip. Patient remains pain-free at this time. We will continue to monitor. Cardiology will be consulted. Echo ordered. Vital signs remained within acceptable limits. He was in agreement this plan. I spoke with the admitting team, [facility] who is covering for Dr. Alaniz who accepted the admission. Undiagnosed new problem with uncertain prognosis? @ -No Drug Therapy requiring intensive monitoring for toxicity (Heparin, Nitro, Insuli n, Cardizem)? @ -Heparin Were any procedures done? @ -No Diagnosis/symptom? @ -NSTEMI, pancreatitis Acute, or Chronic, or Acute on Chronic? @ -Acute Uncomplicated (without systemic symptoms) or Complicated (systemic symptoms)? @ -Complicated Side effects of treatment? @ -None Exacerbation, Progression, or Severe Exacerbation] @ -No Poses a threat to life or bodily function? @ -Yes - Lab Data Result diagrams: 10/18/23 02:10/18/23 02:24 Lab Results 10/18/23 10/18/23 10/18/23 Range/Units 02:24 02:24 02:24 WBC 7.9 (3.8-10.6) k/uL RBC 5.10 (4.30-5.90) m/uL Hgb 15.7 (13.0-17.5) gm/dL Hct 47.4 (39.0-53.0) % MCV 93.0 (80.0-100.0) fL MCH 30.7 (25.0-35.0) pg MCHC 33.1 (31.0-37.0) g/dL RDW 14.8 (11.5-15.5) % Plt Count 182 (150-450) k/uL MPV 8.3 Neutrophils % 55 % Lymphocytes % 34 % Monocytes % 6 % Eosinophils % 2 % Basophils % 1 % Neutrophils # 4.3 (1.3-7.7) k/uL Lymphocytes # 2.7 (1.0-4.8) k/uL Monocytes # 0.5 (0-1.0) k/uL Eosinophils # 0.2 (0-0.7) k/uL Basophils # 0.0 (0-0.2) k/uL PT 10.6 (10.0-12.5) sec INR 1.0 (<1.2) APTT 23.7 (22.0-30.0) sec Sodium 135 L (137-145) mmol/L Potassium 4.7 (3.5-5.1) mmol/L Chloride 104 (98-107) mmol/L Carbon Dioxide 23 (22-30) mmol/L Anion Gap 8 mmol/L BUN 23 H (9-20) mg/dL Creatinine 0.91 (0.66-1.25) mg/dL Est GFR (CKD-EPI)AfAm >90 (>60 ml/min/1.73 sqM) Est GFR (CKD-EPI)NonAf 88 (>60 ml/min/1.73 sqM) Glucose 138 H (74-99) mg/dL Plasma Lactic Acid Hung (0.7-2.0) mmol/L Calcium 9.5 (8.4-10.2) mg/dL Total Bilirubin 0.9 (0.2-1.3) mg/dL AST 56 (17-59) U/L ALT 22 (4-49) U/L Alkaline Phosphatase 58 (38-126) U/L Troponin I (0.000-0.034) ng/mL Total Protein 7.7 (6.3-8.2) g/dL Albumin 4.7 (3.5-5.0) g/dL Amylase 61 (30-110) U/L Lipase 537 H (23-300) U/L Urine Color Urine Appearance (Clear) Urine pH (5.0-8.0) Ur Specific [place] (1.001-1.035) Urine Protein (Negative) Urine Glucose (UA) (Negative) Urine Ketones (Negative) Urine Blood (Negative) Urine Nitrite (Negative) Urine Bilirubin (Negative) Urine Urobilinogen (<2.0) mg/dL Ur Leukocyte Esterase (Negative) 10/18/23 10/18/23 10/18/23 Range/Units 02:24 02:53 05:45 WBC (3.8-10.6) k/uL RBC (4.30-5.90) m/uL Hgb (13.0-17.5) gm/dL Hct (39.0-53.0) % MCV (80.0-100.0) fL MCH (25.0-35.0) pg MCHC (31.0-37.0) g/dL RDW (11.5-15.5) % Plt Count (150-450) k/uL MPV Neutrophils % % Lymphocytes % % Monocytes % % Eosinophils % % Basophils % % Neutrophils # (1.3-7.7) k/uL Lymphocytes # (1.0-4.8) k/uL Monocytes # (0-1.0) k/uL Eosinophils # (0-0.7) k/uL Basophils # (0-0.2) k/uL PT (10.0-12.5) sec INR (<1.2) APTT (22.0-30.0) sec Sodium (137-145) mmol/L Potassium (3.5-5.1) mmol/L Chloride (98-107) mmol/L Carbon Dioxide (22-30) mmol/L Anion Gap mmol/L BUN (9-20) mg/dL Creatinine (0.66-1.25) mg/dL Est GFR (CKD-EPI)AfAm (>60 ml/min/1.73 sqM) Est GFR (CKD-EPI)NonAf (>60 ml/min/1.73 sqM) Glucose (74-99) mg/dL Plasma Lactic Acid Hung 1.4 (0.7-2.0) mmol/L Calcium (8.4-10.2) mg/dL Total Bilirubin (0.2-1.3) mg/dL AST (17-59) U/L ALT (4-49) U/L Alkaline Phosphatase (38-126) U/L Troponin I 0.028 0.077 H* (0.000-0.034) ng/mL Total Protein (6.3-8.2) g/dL Albumin (3.5-5.0) g/dL Amylase (30-110) U/L Lipase (23-300) U/L Urine Color Urine Appearance (Clear) Urine pH (5.0-8.0) Ur Specific [place] (1.001-1.035) Urine Protein (Negative) Urine Glucose (UA) (Negative) Urine Ketones (Negative) Urine Blood (Negative) Urine Nitrite (Negative) Urine Bilirubin (Negative) Urine Urobilinogen (<2.0) mg/dL Ur Leukocyte Esterase (Negative) 10/18/23 Range/Units 05:54 WBC (3.8-10.6) k/uL RBC (4.30-5.90) m/uL Hgb (13.0-17.5) gm/dL Hct (39.0-53.0) % MCV (80.0-100.0) fL MCH (25.0-35.0) pg MCHC (31.0-37.0) g/dL RDW (11.5-15.5) % Plt Count (150-450) k/uL MPV Neutrophils % % Lymphocytes % % Monocytes % % Eosinophils % % Basophils % % Neutrophils # (1.3-7.7) k/uL Lymphocytes # (1.0-4.8) k/uL Monocytes # (0-1.0) k/uL Eosinophils # (0-0.7) k/uL Basophils # (0-0.2) k/uL PT (10.0-12.5) sec INR (<1.2) APTT (22.0-30.0) sec Sodium (137-145) mmol/L Potassium (3.5-5.1) mmol/L Chloride (98-107) mmol/L Carbon Dioxide (22-30) mmol/L Anion Gap mmol/L BUN (9-20) mg/dL Creatinine (0.66-1.25) mg/dL Est GFR (CKD-EPI)AfAm (>60 ml/min/1.73 sqM) Est GFR (CKD-EPI)NonAf (>60 ml/min/1.73 sqM) Glucose (74-99) mg/dL Plasma Lactic Acid Hung (0.7-2.0) mmol/L Calcium (8.4-10.2) mg/dL Total Bilirubin (0.2-1.3) mg/dL AST (17-59) U/L ALT (4-49) U/L Alkaline Phosphatase (38-126) U/L Troponin I (0.000-0.034) ng/mL Total Protein (6.3-8.2) g/dL Albumin (3.5-5.0) g/dL Amylase (30-110) U/L Lipase (23-300) U/L Urine Color Colorless Urine Appearance Clear (Clear) Urine pH 5.5 (5.0-8.0) Ur Specific [place] 1.043 H (1.001-1.035) Urine Protein Negative (Negative) Urine Glucose (UA) Negative (Negative) Urine Ketones Negative (Negative) Urine Blood Negative (Negative) Urine Nitrite Negative (Negative) Urine Bilirubin Negative (Negative) Urine Urobilinogen <2.0 (<2.0) mg/dL Ur Leukocyte Esterase Negative (Negative) - EKG Data -: EKG Interpreted by Me EKG Comments: 12-lead Electrocardiogram Interpretation Note EKG was reviewed and interpreted by myself. 12-lead ECG performed at 0132 is interpreted by me as revealing normal sinus rhythm at a rate of 65 beats per minute. Left axis deviation. ME interval is 184 ms, QRS duration is 105 ms, QTc is 370 ms.. There were no ST or T wave abnormalities to suggest myocardial ischemia or injury. R wave progression across the precordium was satisfactory. By my interpretation this EKG is non-diagnostic for acute ischemia. Critical Care Time Critical Care Time: Yes Total Critical Care Time: 40 Disposition Clinical Impression: NSTEMI (non-ST elevated myocardial infarction), Pancreatitis Disposition: ADMITTED IP TO THIS HOSP Condition: Stable Referrals: Hamzah Alaniz MD [Primary Care Provider] - 1-2 days Time of Disposition: 07:10
[2023-10-18 03:19] LABS: Basophils % (A) 1 %; Eosinophils # (A) 0.2 k/uL (0-0.7); Eosinophils % (A) 2 %; HCT 47.4 % (39.0-53.0); HGB 15.7 gm/dL (13.0-17.5); Lymphocytes # (A) 2.7 k/uL (1.0-4.8); Lymphocytes % (A) 34 %; MCH 30.7 pg (25.0-35.0); MCHC 33.1 g/dL (31.0-37.0); Mean Platelet Volume 8.3; Monocytes # (A) 0.5 k/uL (0-1.0); Monocytes % (A) 6 %; Neutrophils # (A) 4.3 k/uL (1.3-7.7); Neutrophils % (A) 55 %; Platelet Count 182 k/uL (150-450); RDW 14.8 % (11.5-15.5); WBC 7.9 k/uL (3.8-10.6)
[2023-10-18 03:33] LABS: Partial Thromboplastin Time 23.7 sec (22.0-30.0); Prothrombin Time 10.6 sec (10.0-12.5)
[2023-10-18 03:48] LABS: ALT 22 U/L (4-49); African American GFR (CKD) >90 (>60 ml/min/1.73 sqM); Albumin 4.7 g/dL (3.5-5.0); Amylase 61 U/L (30-110); Anion Gap 8 mmol/L; Blood Urea Nitrogen 23 mg/dL (9-20); Calcium 9.5 mg/dL (8.4-10.2); Carbon Dioxide 23 mmol/L (22-30); Chloride 104 mmol/L (98-107); Glucose 138 mg/dL (74-99); Lipase 537 U/L (23-300); Non-African American GFR(CKD) 88 (>60 ml/min/1.73 sqM); Sodium 135 mmol/L (137-145); Total Bilirubin 0.9 mg/dL (0.2-1.3); Total Protein 7.7 g/dL (6.3-8.2)
[2023-10-18 03:55] LABS: AST 56 U/L (17-59); Alkaline Phosphatase 58 U/L (38-126); Potassium 4.7 mmol/L (3.5-5.1)
--- NOTE | 2023-10-18 06:12 | CT ---
EXAM: CT Abdomen and Pelvis With Intravenous Contrast CLINICAL HISTORY: ITS.REASON CT Reason: abdominal pain. epigastric abd pain TECHNIQUE: Axial computed tomography images of the abdomen and pelvis with intravenous contrast. CTDI is 23.9 mGy and DLP is 1173.9 mGy-cm. This CT exam was performed using one or more of the following dose reduction techniques: automated exposure control, adjustment of the mA and/or kV according to patient size, and/or use of iterative reconstruction technique. COMPARISON: CT Abdomen Pelvis dated september 20 2022 FINDINGS: Lung bases: Unremarkable. No mass. No consolidation. ABDOMEN: Liver: Unremarkable. No mass. Gallbladder and bile ducts: Unremarkable. No calcified stones. No ductal dilation. Pancreas: Mild stranding noted adjacent to the pancreas which is decreased from prior study September 20, 2022. Findings may relate to residual sequela of pancreatitis. Mesenteric panniculitis is less likely given findings on prior CT. Consider multiphasic imaging or MRI if there is further concern. No ductal dilation. Spleen: Unremarkable. No splenomegaly. Adrenals: Unremarkable. No mass. Kidneys and ureters: Unremarkable. No solid mass. No hydronephrosis. Stomach and bowel: No evidence of bowel obstruction. No mucosal thickening. PELVIS: Appendix: Normal appendix. Bladder: Diffuse bladder wall thickening with perivesicular stranding. Findings can be seen with cystitis. Consider correlation with laboratory values. Reproductive: Prostatomegaly with prostatic calcifications. ABDOMEN and PELVIS: Intraperitoneal space: See above. Bones/joints: Degenerative changes in the spine. No acute fracture. No dislocation. Soft tissues: Right inguinal hernia containing fat. Umbilical hernia containing fat. Vasculature: Atherosclerotic disease. No abdominal aortic aneurysm. Lymph nodes: Unremarkable. No enlarged lymph nodes. IMPRESSION: 1. Mild stranding noted adjacent to the pancreas which is decreased from prior study September 20, 2022. Findings may relate to residual sequela of pancreatitis. Mesenteric panniculitis is less likely given findings on prior CT. Consider multiphasic imaging or MRI if there is further concern. 2. Normal appendix. 3. No evidence of bowel obstruction. 4. Diffuse bladder wall thickening with perivesicular stranding. Findings can be seen with cystitis. Consider correlation with laboratory values.
[2023-10-18 06:15] LABS: Appearance,Urine Clear (Clear); Bilirubin,Urine Negative (Negative); Blood,Urine Negative (Negative); Color,Urine Colorless; Glucose,Urine (UA) Negative (Negative); Ketones,Urine Negative (Negative); Leukocyte Esterase,Urine Negative (Negative); Nitrite,Urine Negative (Negative); PH, Urine 5.5 (5.0-8.0); Protein,Urine Negative (Negative); Specific Gravity,Urine 1.043 (1.001-1.035); Urobilinogen,Urine <2.0 mg/dL (<2.0)
[2023-10-18] MEDS ORDERED: NALOXONE 0.4 MG/ML 1 ML VIAL IV PRN (07:10)
[2023-10-18] MEDS ORDERED: ONDANSETRON 4 MG/2 ML VIAL IVP PRN (07:10)
[2023-10-18] MEDS ORDERED: MORPHINE SULFATE 4 MG/ML SYRINGE IV PRN (07:10)
[2023-10-18] MEDS: HEPARIN SOD,PORK IN 0.45% NACL 25,000 UNIT in 0.45% NACL 1 250ML.BAG IV SCH (07:37)
[2023-10-18] MEDS: ASPIRIN 81 MG PO STA (07:38)
[2023-10-18] MEDS: HEPARIN SODIUM 1,000 UN/ML (10ML VL) IV ONE (07:38)
[2023-10-18] MEDS: PANTOPRAZOLE 40 MG/10 ML VIAL IV SCH ×2 (07:49→20:38)
--- NOTE | 2023-10-18 11:22 | CA ---
Transthoracic Echo Report Name: Cristóbal Canales Age: 68 Gender: M : 1955 Exam Date: 10/18/2023 09:12 Exam Location: [facility] Ht (in): 71 Wt (lb): 190 Ordering Physician: Musa King MD Attending/Referring Phys: Desk Reporter Tereza Torres RDCS Procedure CPT: Indications: nstemi Cardiac Hx: Technical Quality: Fair Contrast 1: Total Dose (mL): Contrast 2: Total Dose (mL): MEASUREMENTS (Male / Female) Normal Values 2D ECHO LV Diastolic Diameter PLAX 3.9 cm 4.2 - 5.9 / 3.9 - 5.3 cm LV Systolic Diameter PLAX 3.6 cm IVS Diastolic Thickness 0.8 cm 0.6 - 1.0 / 0.6 - 0.9 cm LVPW Diastolic Thickness 1.0 cm 0.6 - 1.0 / 0.6 - 0.9 cm LV Relative Wall Thickness 0.5 RV Internal Dim ED PLAX 2.3 cm LA Systolic Diameter LX 3.9 cm 3.0 - 4.0 / 2.7 - 3.8 cm LV Diastolic Volume MOD BP 77.1 cm??? 67 - 155 / 56 - 104 cm??? LV Systolic Volume MOD BP 47.9 cm??? 22 - 58 / 19 - 49 cm??? LV Ejection Fraction MOD BP 37.9 % >= 55 % LV Cardiac Index MOD BP 1047.5 cm???/min???m??? LV Diastolic Volume MOD 4C 98.4 cm??? LV Systolic Volume MOD 4C 49.0 cm??? LV Ejection Fraction MOD 4C 50.2 % LV Cardiac Index MOD 4C 1773.6 cm???/min???m??? LV Diastolic Length 4C 8.2 cm LV Systolic Length 4C 7.1 cm LV Diastolic Volume MOD 2C 54.6 cm??? LV Systolic Volume MOD 2C 42.5 cm??? LV Ejection Fraction MOD 2C 22.0 % LV Cardiac Index MOD 2C 431.8 cm???/min???m??? LV Diastolic Length 2C 7.3 cm LV Systolic Length 2C 6.9 cm LA Volume 60.1 cm??? 18 - 58 / 22 - 52 cm??? LA Volume Index 28.8 cm???/m??? 16 - 28 cm???/m??? M-MODE Aortic Root Diameter MM 3.4 cm LA Systolic Diameter MM 4.0 cm LA Ao Ratio MM 1.2 AV Cusp Separation MM 1.8 cm DOPPLER MV Area PHT 2.8 cm??? Mitral E Point Velocity 82.8 cm/s Mitral A Point Velocity 95.7 cm/s Mitral E to A Ratio 0.9 MV Deceleration Time 275.6 ms TR Peak Velocity 321.1 cm/s TR Peak Gradient 41.2 mmHg Right Ventricular Systolic Press 45.3 mmHg FINDINGS Left Ventricle Left ventricular ejection fraction is estimated at 40-45 %. [place] hypokinetic. Left ventricular cavity size normal. Left ventricular wall thickness normal. Right Ventricle Normal right ventricular size and function. Mild pulmonary hypertension. Right Atrium Mild right atrial dilatation. Left Atrium Mildly increased left atrial volume. Mildly increased left atrial area. Mitral Valve Structurally normal mitral valve. Trace mitral regurgitation. No mitral stenosis. Aortic Valve Trileaflet aortic valve. No aortic valve stenosis or regurgitation. Tricuspid Valve Structurally normal tricuspid valve. Mild tricuspid regurgitation. No tricuspid stenosis. Pulmonic Valve Structurally normal pulmonic valve. Trace pulmonic regurgitation. No pulmonic stenosis. Pericardium No pericardial or pleural effusion. Aorta Normal size aortic root and proximal ascending aorta. CONCLUSIONS Left ventricular ejection fraction is estimated at 40-45 %. [place] hypokinetic. Mild pulmonary hypertension. Mild biatrial dilatation No significant valv pathology Previewed by: Dr Armando Ceron (Electronically Signed) Final Date: 18 October 2023 11:22
--- NOTE | 2023-10-18 12:36 | P.HPIM ---
History of Present Illness 68-year-old male came with complaints of epigastric abdominal pain radiating to the back patient does drink alcohol quite often but not on daily basis. Patient had pancreatitis in the past and he believes he has pancreatitis because of which patient came to the hospital. He was having nausea no vomiting. Patient had an EKG which showed some nonspecific ST-T wave changes in inferior leads, patient had set of troponin is negative the second troponin is mildly elevated to 0.077 and the third 0.089 because of which patient was started on IV heparin. Patient has a minimally elevated lipase of around 580. REVIEW OF SYSTEMS: All other systems are negative except those mentioned in the HPI PHYSICAL EXAMINATION: GENERAL: The patient is alert and oriented x3, not in any acute distress. Well developed, well nourished. HEENT: Pupils are round and equally reacting to light. EOMI. No scleral icterus. No conjunctival pallor. Normocephalic, atraumatic. No pharyngeal erythema. No thyromegaly. CARDIOVASCULAR: S1 and S2 present. No murmurs, rubs, or gallops. PULMONARY: Chest is clear to auscultation, no wheezing or crackles. ABDOMEN: Soft, minimal and no epigastric abdominal tenderness, nondistended, normoactive bowel sounds. No palpable organomegaly. MUSCULOSKELETAL: No joint swelling or deformity. EXTREMITIES: No cyanosis, clubbing, or pedal edema. NEUROLOGICAL: Gross neurological examination did not reveal any focal deficits. SKIN: No rashes. Assessment and plan -Abdominal pain: Possible etiologies. Gastritis or peptic ulcer disease from alcoholism for which patient is on Protonix. There is a possibility of inferior wall [place] cardiology will evaluate patient, patient is on IV heparin at this time. Low possibility of pancreatitis despite of his pain radiating to the back. If cardiology is not planning any cardiac catheterization patient will be started on clear liquid diet today -Alcohol abuse: Counseling was provided -Possible non-ST elevation [place] -Hypertension for which patient is on lisinopril which will be resumed DVT prophylaxis: On IV heparin Past Medical History Past Medical History: CVA/TIA, Hypertension Additional Past Medical History / Comment(s): Gout. pancreatitis History of Any Multi-Drug Resistant Organisms: None Reported Past Surgical History: No Surgical Hx Reported Additional Past Surgical History / Comment(s): Arthroscopy to right ankle. Past Psychological History: No Psychological Hx Reported Smoking Status: Never smoker Past Alcohol Use History: Daily Past Drug Use History: Marijuana Medications and Allergies Home Medications Medication Instructions Recorded Confirmed Type Aspirin EC [Ecotrin Low Dose] 81 mg PO DAILY 10/18/23 10/18/23 History Levothyroxine Sodium [Synthroid] 25 mcg PO DAILY 10/18/23 10/18/23 History allopurinoL [Zyloprim] 100 mg PO DAILY 10/18/23 10/18/23 History lisinopriL [Zestril] 10 mg PO DAILY 10/18/23 10/18/23 History Allergies Allergy/AdvReac Type Severity Reaction Status Date / Time No Known Allergies Allergy Verified 10/18/23 08:50 Physical Exam Vitals: Vital Signs Temp Pulse Resp BP Pulse Ox 10/18/23 08:24 72 16 155/85 99 10/18/23 07:42 69 16 120/82 97 10/18/23 07:00 55 L 18 120/82 94 L 10/18/23 06:00 53 L 16 120/82 94 L 10/18/23 05:45 97.5 F L 57 L 16 120/82 97 10/18/23 02:25 76 18 143/86 96 10/18/23 01:25 75 18 148/94 98 10/18/23 01:22 98.8 F 63 18 197/105 99 Intake and Output 10/17/23 10/18/23 10/18/23 22:59 06:59 14:59 Output Total 650 Balance -650 Output: Urine 650 Other: Weight 86.183 kg Results CBC & Chem 7: 10/18/23 02:24 10/18/23 02:24 Labs: Abnormal Lab Results - Last 24 Hours (Table) 10/18/23 10/18/23 10/18/23 Range/Units 02:24 05:45 05:54 Sodium 135 L (137-145) mmol/L BUN 23 H (9-20) mg/dL Glucose 138 H (74-99) mg/dL Troponin I 0.077 H* (0.000-0.034) ng/mL Lipase 537 H (23-300) U/L Ur Specific [place] 1.043 H (1.001-1.035) 10/18/23 Range/Units 08:45 Sodium (137-145) mmol/L BUN (9-20) mg/dL Glucose (74-99) mg/dL Troponin I 0.089 H* (0.000-0.034) ng/mL Lipase (23-300) U/L Ur Specific [place] (1.001-1.035)
[2023-10-18] MEDS: HEPARIN SODIUM 1,000 UN/ML (10ML VL) IV PRN (12:47)
[2023-10-18 13:35] LABS: NT-Pro-B-Type Natriuretic Pept 198 pg/mL
[2023-10-18] MEDS: lisinopriL 10 MG TAB PO SCH (13:37)
[2023-10-18] MEDS: ASPIRIN 325 MG TAB PO STA (17:05)
[2023-10-18] MEDS: ATORVASTATIN 80 MG TAB PO STA (17:05)
[2023-10-18] MEDS ORDERED: VERAPAMIL 2.5 MG/ML 2 ML AMP ONE (18:42)
[2023-10-18] MEDS ORDERED: LIDOCAINE 1% INJ 10MG/ML (20 ML MDV) ONE (18:42)
[2023-10-18] MEDS ORDERED: fentaNYL (PF) 50 MCG/ML 2 ML AMP ONE (18:43)
[2023-10-18] MEDS: IV FLUID CONTINUATION 1,000 ML IV ONE (19:00)
[2023-10-18] MEDS ORDERED: HEPARIN SODIUM 1,000 UN/ML (10ML VL) ONE ×2 (19:03→20:17)
[2023-10-18] MEDS: fentaNYL (PF) 50 MCG/ML 2 ML AMP IVP ONE (19:05)
[2023-10-18] MEDS: MIDAZOLAM 2 MG/2 ML VIAL IVP ONE (19:05)
[2023-10-18] MEDS: LIDOCAINE 1% INJ 10MG/ML (20 ML MDV) SQ ONE (19:07)
[2023-10-18] MEDS: VERAPAMIL 2.5 MG/ML 2 ML AMP INTRAARTER ONE (19:10)
[2023-10-18] MEDS: HEPARIN SODIUM 1,000 UN/ML (10ML VL) IVP ONE ×2 (19:13→20:18)
--- NOTE | 2023-10-18 19:38 | P.CRDCN ---
History of Present Illness Consult date: 10/18/23 History of present illness: HISTORY OF PRESENTING ILLNESS 68-year-old male with PMH of alcohol use, presented to the hospital because of epigastric pain, chest pain and back pain. She was also complaining of some nausea and vomiting. Patient denies any prior cardiovascular history. Admission ECG showed concerns of T wave inversions in lateral septal leads. His troponin was elevated at hide uptrending pattern. His echocardiogram showed apical hypokinesia. Social history, alcohol use frequently, denies any smoking, occasional marijuana use. Denies any drug use REVIEW OF SYSTEMS 14 point review of system is negative except what is mentioned above in HPI. PHYSICAL EXAMINATION Vital signs reviewed. Head: Normocephalic. Eyes: Sclerae nonicteric. Neck: Brisk carotid upstroke, no jugular venous distention. Lungs: Clear to auscultation. Heart: Regular rate and rhythm, S1-S2, no S3, no murmur or rub. Abdomen: Soft nontender, positive bowel sounds. Extremities: No edema, intact distal pulses. Neuro: Alert, oritented, no focal deficits. Detailed neuro exam was not performed. ASSESSMENT NSTEMI Apical hypokinesia with HFmrEF, euvolemic Epigastric pain and back pain Prior history of alcohol use Occasional marijuana use Cardiac testing ECG shows sinus rhythm with T wave inversions in lateral Leads Echocardiogram showed EF of 40% with apical wall hypokinesia Troponin is elevated 0.07, 0.08, 0.09 PLAN Plan for cardiac authorization Continue aspirin, Lipitor, continue heparin drip He is on lisinopril 10 mg at home. Will continue. Start metoprolol succinate 25 mg daily Obtain lipid panel, HbA1c, NT proBNP Armando Ceron MD, FACC, RPVI Thank you for allowing [facility] to participate in this patient's care. Feel free to reach out in case of any followup questions. Past Medical History Past Medical History: CVA/TIA, Hypertension Additional Past Medical History / Comment(s): Gout. pancreatitis History of Any Multi-Drug Resistant Organisms: None Reported Past Surgical History: No Surgical Hx Reported Additional Past Surgical History / Comment(s): Arthroscopy to right ankle. Past Anesthesia/Blood Transfusion Reactions: No Reported Reaction Past Psychological History: No Psychological Hx Reported Smoking Status: Never smoker Past Alcohol Use History: Daily Past Drug Use History: Marijuana Medications and Allergies Home Medications Medication Instructions Recorded Confirmed Type Aspirin EC [Ecotrin Low Dose] 81 mg PO DAILY 10/18/23 10/18/23 History Levothyroxine Sodium [Synthroid] 25 mcg PO DAILY 10/18/23 10/18/23 History allopurinoL [Zyloprim] 100 mg PO DAILY 10/18/23 10/18/23 History lisinopriL [Zestril] 10 mg PO DAILY 10/18/23 10/18/23 History Allergies Allergy/AdvReac Type Severity Reaction Status Date / Time No Known Allergies Allergy Verified 10/18/23 08:50 Physical Exam Vitals: Vital Signs Temp Pulse Pulse Resp BP BP Pulse Ox 10/18/23 18:26 98.5 F 71 18 134/67 98 10/18/23 18:24 71 18 10/18/23 17:12 71 20 133/67 98 10/18/23 13:32 85 20 114/58 97 10/18/23 08:24 72 16 155/85 99 10/18/23 07:42 69 16 120/82 97 10/18/23 07:00 55 L 18 120/82 94 L 10/18/23 06:00 53 L 16 120/82 94 L 10/18/23 05:45 97.5 F L 57 L 16 120/82 97 10/18/23 02:25 76 18 143/86 96 10/18/23 01:25 75 18 148/94 98 10/18/23 01:22 98.8 F 63 18 197/105 99 Intake and Output 10/18/23 10/18/23 10/18/23 06:59 14:59 22:59 Intake Total 51.833 Output Total 650 Balance -598.167 Intake: Intake, IV Titration 51.833 Amount Heparin Sod,Pork in 0.45% 51.833 NaCl 25,000 unit In 0.45 % NaCl 1 250ml.bag @ 11. 603 UNITS/KG/HR 10 mls/hr IV .Q24H [facility] Rx#: [id number] Output: Urine 650 Other: Voiding Method Urinal Weight 86.183 kg 86.183 kg Results 10/18/23 02:24 10/18/23 02:24 Cardiac Enzymes 10/18/23 10/18/23 10/18/23 Range/Units 02:24 02:24 05:45 AST 56 (17-59) U/L Troponin I 0.028 0.077 H* (0.000-0.034) ng/mL 10/18/23 10/18/23 Range/Units 08:45 12:12 AST (17-59) U/L Troponin I 0.089 H* 0.096 H* (0.000-0.034) ng/mL Coagulation 10/18/23 10/18/23 10/18/23 Range/Units 02:24 12:12 18:01 PT 10.6 (10.0-12.5) sec APTT 23.7 38.9 H 60.3 H (22.0-30.0) sec CBC 10/18/23 Range/Units 02:24 WBC 7.9 (3.8-10.6) k/uL RBC 5.10 (4.30-5.90) m/uL Hgb 15.7 (13.0-17.5) gm/dL Hct 47.4 (39.0-53.0) % Plt Count 182 (150-450) k/uL Comprehensive Metabolic Panel 10/18/23 Range/Units 02:24 Sodium 135 L (137-145) mmol/L Potassium 4.7 (3.5-5.1) mmol/L Chloride 104 (98-107) mmol/L Carbon Dioxide 23 (22-30) mmol/L BUN 23 H (9-20) mg/dL Creatinine 0.91 (0.66-1.25) mg/dL Glucose 138 H (74-99) mg/dL Calcium 9.5 (8.4-10.2) mg/dL AST 56 (17-59) U/L ALT 22 (4-49) U/L Alkaline Phosphatase 58 (38-126) U/L Total Protein 7.7 (6.3-8.2) g/dL Albumin 4.7 (3.5-5.0) g/dL Current Medications Generic Name Dose Route Start Last Admin Trade Name Freq PRN Reason Stop Dose Admin Allopurinol 100 mg 10/19/23 09:00 Allopurinol 100 Mg Tab PO DAILY [facility] Aspirin 81 mg 10/19/23 09:00 Aspirin 81 Mg PO DAILY [facility] Atorvastatin Calcium 40 mg 10/18/23 21:00 Atorvastatin 40 Mg Tab PO HS [facility] Heparin Sodium (Porcine) 0 unit 08/03/24 07:09 10/18/23 12:47 Heparin Sodium 1,000 Un/Ml (10ml Vl) IV 2,100 unit PER PROTOCOL PRN Administration Low PTT Protocol Heparin Sodium/Sodium Chloride 250 mls @ 10 mls/hr 10/18/23 07:15 10/18/23 12:48 25,000 unit/ Sodium Chloride IV 13.92 units/kg/hr .Q24H JEFF 12 mls/hr Titration Protocol 11.603 UNITS/KG/HR Levothyroxine Sodium 25 mcg 10/19/23 06:30 Levothyroxine 25 Mcg Tab PO DAILY@0630 [facility] Lisinopril 10 mg 10/18/23 12:30 10/18/23 18:10 Lisinopril 10 Mg Tab PO Not Given DAILY [facility] Metoprolol Succinate 25 mg 10/19/23 09:00 Metoprolol Succinate (Er) 25 Mg Tab.Er.24h PO DAILY [facility] Morphine Sulfate 4 mg 10/18/23 07:10 Morphine Sulfate 4 Mg/Ml Syringe IV Q4HR PRN Severe Pain (Scale 7 to 10) Naloxone HCl 0.2 mg 10/18/23 07:10 Naloxone 0.4 Mg/Ml 1 Ml Vial IV Q2M PRN Opioid Reversal Ondansetron HCl 4 mg 10/18/23 07:10 Ondansetron 4 Mg/2 Ml Vial IVP Q8HR PRN Nausea And Vomiting Pantoprazole Sodium 40 mg 10/18/23 21:00 Pantoprazole 40 Mg/10 Ml Vial IV BID [facility] Intake and Output 10/18/23 10/18/23 10/18/23 06:59 14:59 22:59 Intake Total 51.833 Output Total 650 Balance -598.167 Intake: Intake, IV Titration 51.833 Amount Heparin Sod,Pork in 0.45% 51.833 NaCl 25,000 unit In 0.45 % NaCl 1 250ml.bag @ 11. 603 UNITS/KG/HR 10 mls/hr IV .Q24H [facility] Rx#: [id number] Output: Urine 650 Other: Voiding Method Urinal Weight 86.183 kg 86.183 kg Patient Weight 10/19/23 06:59 Weight 86.183 kg 10/18/23 02:24 10/18/23 02:24
--- NOTE | 2023-10-18 19:40 | P.CARDCATH ---
Date of Procedure: 10/18/23 Description of Procedure: DIAGNOSTIC CORONARY ANGIOGRAPHY and LEFT HEART CATH REPORT PROCEDURES PERFORMED: Left heart catheterization Selective coronary angiography Moderate conscious sedation 18 mins [Ultrasound assisted] Right radial access INDICATION: NSTEMI CONSENT: I have explained the procedural steps of above-mentioned procedures in layman's terms to the patient. I discussed the risks (including but not limited to stroke, emergent vascular or cardiac surgery or ), benefits and alternative therapies for the above-mentioned procedure. I discussed the risks of sedation/analgesia and blood product administration (if indicated). The patient has indicated understanding and acceptance of these risks. Conscious Sedation: Patient's ECG, heart rate, blood pressure, pulse oximetry were monitored throughout the duration of procedure under my direct supervision. [2] mg Versed and [50] mcg Fentanyl were used for induction of moderate conscious sedation. Total duration of moderate concious sedation 18 minutes. PROCEDURE: After explaining the risks, benefits and alternatives of the above mentioned procedures in detail to the patient, informed consent was obtained. Patient was taken to the catheterization lab, prepped and draped in usual sterile fashion using universal precuations. Ultrasound was used to identify the radial artery. 1% lidocaine was infiltrated over the right radial artery. A 6-Lithuanian sheath was placed and secured in the right radial artery using modified Seldinger technique. The sheath was flushed and 5 mg verapamil was administered intra-arterially. J tipped wire was advanced under fluoroscopic guidance. Once the wire tip reached aortic root [5000] units of IV heparin was given. Over the wire JR4 diagnostic catheter was advanced. The wire in place the catheter was manipulated to cross the aortic valve and entered into LV under fluoroscopy guidance. The wire was removed and the catheter was flushed. LV pressures were obtained and pullback was performed under fluoroscopy. Catheter was manipulated to selectively engage the right coronary ostium. Right coronary angiography was performed in different angiographic projections. The JR4 diagnostic catheter was exchanged for a JL 3.5 diagnostic catheter over the J-wire. The wire was removed, catheter was flushed and manipulated under fluoroscopy to selectively engaged the left coronary ostium. Left coronary angioplasty was performed in different angiographic projections. Catheter was removed over the wire. Radial sheath was flushed. The right radial sheath was removed and a TR band was placed with excellent patent hemostasis was achieved. The patient tolerated the procedure well. Patient was transported back to the post catheterization holding area in stable condition. Angiographic images were reviewed in detail. HEMODYNAMICS: Aortic Pressure: 100/50 mmHg. LV pressure: 100/0 mmHg. LVEDP 2 mmHg. There was no significant gradient across the aortic valve. SELECTIVE CORONARY ARTERIOGRAPHY: LEFT MAIN: The left main is short and large caliber vessel. It bifurcates into the LAD and circumflex. Left main appears angiographically normal. LEFT ANTERIOR DESCENDING CORONARY ARTERY: LAD is a large caliber vessel which wraps around to the apex. Proximal LAD appears has diffuse 40 to 50% disease. Mid LAD just at the bifurcation site of septal branch has 80 to 90% stenosis. Distal LAD appears angiographically normal. Diagonal branch appears angiographically normal. LEFT CIRCUMFLEX CORONARY ARTERY: It is dominant vessel and is large caliber.. Proximal LCx has 10% luminal narrowing. Mid and distal LCx appears angiographically normal. It gives rise to large OM branches with angiographically normal RIGHT CORONARY ARTERY: None dominant vessel. Proximal mid RCA patent graft normal. It is raised to RV marginal branches which are normal angiographically. IMPRESSION: 80 to 90% mid LAD stenosis, PERRY-3 flow Mild LCx disease PLAN: PCI of LAD with Dr. Brown Performing Physician Armando Ceron MD, FAC, RPVI Thank you for allowing [facility] to participate in this patient's care. Feel free to reach out in case of any followup questions.
[2023-10-18] MEDS ORDERED: TICAGRELOR 90 MG TAB ONE (19:51)
[2023-10-18] MEDS: TICAGRELOR 90 MG TAB PO ONE (19:54)
[2023-10-18] MEDS: IOPAMIDOL-370 100ML BTL INJ ONE ×2 (19:59→20:14)
[2023-10-18] MEDS: NITROGLYCERIN 1000MCG/10ML SYRINGE INTRACORON ONE (19:59)
[2023-10-18] MEDS: SODIUM CHLORIDE 0.9% 1,000 ML IV ONE (20:14)
[2023-10-18] MEDS: ATORVASTATIN 40 MG TAB PO SCH (20:38)
[2023-10-18 20:52] VITALS: RESP 19
[2023-10-18] MEDS: ACETAMINOPHEN TAB 325 MG TAB PO PRN (23:33)
[2023-10-19 00:33] LABS: Basophils % (A) 0 %; Eosinophils % (A) 0 %; HCT 37.9 % (39.0-53.0); HGB 12.8 gm/dL (13.0-17.5); Lymphocytes # (A) 0.6 k/uL (1.0-4.8); Lymphocytes % (A) 6 %; MCH 31.3 pg (25.0-35.0); MCHC 33.8 g/dL (31.0-37.0); MCV 92.6 fL (80.0-100.0); Mean Platelet Volume 8.1; Monocytes # (A) 0.4 k/uL (0-1.0); Monocytes % (A) 5 %; Neutrophils # (A) 8.7 k/uL (1.3-7.7); Neutrophils % (A) 89 %; Platelet Count 113 k/uL (150-450); RDW 15.1 % (11.5-15.5); WBC 9.8 k/uL (3.8-10.6)
--- NOTE | 2023-10-19 01:19 | XR ---
EXAM: XR Chest, 1 View CLINICAL HISTORY: ITS.REASON XR Reason: Cough, sputum TECHNIQUE: Frontal view of the chest. COMPARISON: No relevant prior studies available. FINDINGS: Lungs: Mild consolidation in the RIGHT mid and lower lung, concerning for pneumonia. Pleural space: Small RIGHT pleural effusion. No pneumothorax. Heart: Cardiomegaly. Mediastinum: Unremarkable. Normal mediastinal contour. Bones/joints: Unremarkable. No acute fracture. IMPRESSION: 1. Mild consolidation in the RIGHT mid and lower lung, concerning for pneumonia. 2. Small RIGHT pleural effusion.
[2023-10-19 05:25] LABS: Appearance,Urine Clear (Clear); Bilirubin,Urine 1+ (Negative); Blood,Urine Negative (Negative); Color,Urine Yellow; Glucose,Urine (UA) Negative (Negative); Ketones,Urine 2+ (Negative); Leukocyte Esterase,Urine Negative (Negative); Nitrite,Urine Negative (Negative); Protein,Urine Negative (Negative); Specific Gravity,Urine 1.019 (1.001-1.035)
[2023-10-19] MEDS: LEVOTHYROXINE 25 MCG TAB PO SCH (06:31)
[2023-10-19 07:26] LABS: Chol/HDL Ratio 4.07 Ratio; LDL Cholesterol,Calculated 128.8 mg/dL (0.0-131.0)
[2023-10-19 07:39] LABS: Basophils % (A) 0 %; Eosinophils % (A) 0 %; HGB 13.4 gm/dL (13.0-17.5); Lymphocytes # (A) 0.7 k/uL (1.0-4.8); Lymphocytes % (A) 8 %; MCH 30.6 pg (25.0-35.0); MCHC 32.8 g/dL (31.0-37.0); MCV 93.4 fL (80.0-100.0); Mean Platelet Volume 7.6; Monocytes # (A) 0.3 k/uL (0-1.0); Monocytes % (A) 4 %; Neutrophils # (A) 7.3 k/uL (1.3-7.7); Neutrophils % (A) 87 %; Platelet Count 111 k/uL (150-450); RBC 4.39 m/uL (4.30-5.90); RDW 14.8 % (11.5-15.5); WBC 8.4 k/uL (3.8-10.6)
[2023-10-19 07:49] LABS: INR 1.1 (<1.2); Prothrombin Time 12.2 sec (10.0-12.5)
[2023-10-19 07:52] LABS: ALT 262 U/L (4-49); AST 281 U/L (17-59); African American GFR (CKD) >90 (>60 ml/min/1.73 sqM); Albumin 3.4 g/dL (3.5-5.0); Alkaline Phosphatase 84 U/L (38-126); Anion Gap 6 mmol/L; Blood Urea Nitrogen 11 mg/dL (9-20); Calcium 8.2 mg/dL (8.4-10.2); Carbon Dioxide 20 mmol/L (22-30); Chloride 107 mmol/L (98-107); Glucose 117 mg/dL (74-99); Non-African American GFR(CKD) >90 (>60 ml/min/1.73 sqM); Potassium 3.7 mmol/L (3.5-5.1); Sodium 133 mmol/L (137-145); Total Bilirubin 4.2 mg/dL (0.2-1.3); Total Protein 6.1 g/dL (6.3-8.2)
[2023-10-19] MEDS: METOPROLOL SUCCINATE (ER) 25 MG TAB.ER.24H PO SCH (08:04)
[2023-10-19] MEDS: allopurinoL 100 MG TAB PO SCH (08:04)
[2023-10-19] MEDS: ASPIRIN 81 MG PO SCH (08:04)
[2023-10-19] MEDS: SODIUM CHLORIDE 0.9% 1,000 ML IV SCH (10:09)
[2023-10-19] MEDS ORDERED: ZOLPIDEM 5 MG TAB PO PRN (11:36)
[2023-10-19] MEDS ORDERED: ATROPINE SULFATE 0.1 MG/ML 10ML SYRINGE IV PRN (11:36)
[2023-10-19] MEDS ORDERED: MAG HYDROX/AL HYDROX/SIMETH 30 ML CUP PO PRN (11:36)
[2023-10-19] MEDS ORDERED: NITROGLYCERIN SL TABS 0.4 MG TAB SUBLINGUAL PRN (11:36)
[2023-10-19] MEDS ORDERED: RX INFO: IV CONTRAST WAS GIVEN 1 EACH MISC MISCELLANE PRN (11:36)
--- NOTE | 2023-10-19 11:36 | P.PRCINT ---
Percutaneous Coronary Int. - Percutaneous Coronary Intervention Percutaneous Coronary Intervention: PROCEDURES PERFORMED: Left coronary angiography, PCI mid LAD with a 3.0 x 12mm Xience CL[place], post dilated 4.0 NC, IVUS LAD INDICATION: NSTEMI DATE OF PROCEDURE: 10/18/2023 CONSENT:I have discussed the risks, benefits and alternative therapies for the above-mentioned procedure and for both sedation/analgesia as well as necessary blood product administration, if indicated, as they pertain to this patient. The patient has indicated understanding and acceptance of the risks and procedures discussed. PROCEDURE: After the risks, benefits and alternatives of the above mentioned procedure explained in detail with the patient, informed consent was obtained. Patient was taken to the catheterization lab and prepped and draped in usual fashion. A 6-Portuguese sheath had been placed previously in the right radial artery. The decision was made to perform PCI of LAD. A 6-Portuguese CLS 4.0 guide was used to engage the left main. Heparin was given. A 0.014 BMW wire was advanced to the distal LAD. predilation was performed with 2.5 mm balloon. Intravascular ultrasound was performed which showed 80% stenosis and reference vessel 4.0 at the proximal portion and 3.0 at the distal portion. A 3.0 x 12 mm Xience [place] wa s placed in the mid LAD. The proximal portion of the stent was postdilated with a 4.0 non compliant balloon. repeat intravascular ultrasound showed well- expanded stent with no dissection and no further significant stenosis. Preintervention there was 80% stenosis and PERRY-3 flow and postintervention there was less than 10% stenosis with PERRY 3 flow. The right radial sheath was removed and a TR band was placed with hemostasis achieved. The patient tolerated the procedure well. Patient was transported back to the post catheterization holding area in stable condition. Conscious Sedation: Patient was monitored under the direct supervision of myself for conscious sedation using Versed and fentanyl for a total duration of 35 minutes HEMODYNAMICS: Ao: 144/61 SELECTIVE CORONARY ARTERIOGRAPHY: LEFT MAIN: The left main is a large caliber vessel which bifurcates into the LAD and circumflex. There is no significant stenosis. LEFT ANTERIOR DESCENDING CORONARY ARTERY: LAD is a large caliber vessel which wraps around to the apex. There is diffuse disease including 30-40% proximal LAD stenosis, mid LAD 40-50% stenosis at a small to moderate caliber diagonal 1 branch and an 80% stenosis at the level of a moderate caliber septal branch. The remainder of the vessel has mild luminal irregularities. LEFT CIRCUMFLEX CORONARY ARTERY: Left circumflex is a large caliber vessel with mild luminal irregularities. The circumflex is dominant. RIGHT CORONARY ARTERY: not imaged, see separate report FINAL IMPRESSION: 1. CAD as described above including 30-40% proximal LAD, 40-50% mid LAD, 80% mid to distal LAD stenosis. 2. S/p PCI mid LAD with a 3.0 x 12mm Xience CL[place], post dilated 4.0 NC PLAN: 1. Aggressive risk factor modification per most recent ACC/AHA guidelines. 2. Continue dual antiplatelets with aspirin and Brillinta for 12 months. 3. Goal LDL < 70
[2023-10-19 11:52] VITALS: BP 124/63; PULSE 56; TEMP 98.4
[2023-10-19] MEDS: SODIUM CHLORIDE 0.9% 1,000 ML in EMPTY BAG 1 BAG IV SCH (12:32)
[2023-10-19] MEDS: TICAGRELOR 90 MG TAB PO SCH (12:46)
--- NOTE | 2023-10-19 15:24 | P.DS ---
Providers Date of admission: 10/18/23 07:10 Attending physician: Howard Agudelo Consults: 10/18/23 07:10 Consult Physician Routine Consulting Provider: Cardiology Jay Consult Reason/Comments: nstemi Do you want consulting provider notified?: Yes 10/19/23 11:36 Consult Physician Routine Consulting Provider: Cardiology Jay Consult Reason/Comments: Post Interventional Patient Do you want consulting provider notified?: Already Contacted Primary care physician: Hamzah Alaniz Hospital Course: Final Diagnosis NSTEMI post cardiac catheterization with stenting of the LAD Apical hypokinesia ejection fraction 40% Epigastric pain and back pain possibly mild acute pancreatitis although suspicion was low and his amylase was normal with mild elevation of the lipase he is tolerating regular diet. Hypo-natremia hypovolemic Prior history of alcohol use Occasional marijuana use History of stroke in the past with no noted deficits Pancreatitis in the past History of gout Discharge Disposition Stable for discharge home. Patient will follow-up closely with the rehabilitation aide/scheduler Dr. Ceron and discharge 1 to 2 weeks. Patient will continue on dual antiplatelet therapy with aspirin and Brilinta. Patient will need aggressive risk factor modification will continue on statin therapy and diet modifications. Patient is advised to quit alcohol. Patient to follow-up with his PCP Dr. Hamzah Alaniz in 1 to 2 days. Hospital Course This is a 68-year-old male came with complaints of epigastric abdominal pain radiating to the back patient does drink alcohol quite often but not on daily basis. Patient had pancreatitis in the past and he believes he has pancreatitis because of which patient came to the hospital. He was having nausea no vomiting. Patient had an EKG which showed some nonspecific ST-T wave changes in inferior leads, patient had set of troponin is negative the second troponin is mildly elevated to 0.077 and the third 0.089 because of which patient was star parrish on IV heparin. Patient has a minimally elevated lipase of around 580. Patient denies any prior cardiovascular history. Admission ECG showed concerns of T wave inversions in lateral septal leads. His troponin was elevated with uptrending pattern. His echocardiogram showed apical hypokinesia, ejection fraction of 40%. She was taken to the cardiac [facility] and underwent stenting of his LAD. He has been started on aspirin 81 mg daily as well as Brilenta 90 mg twice a day for the stent placement. Suspicion for pancreatitis is low at this time patient is no longer having any epigastric or abdominal discomfort and tolerated a regular diet today. His amylase and lipase were essentially normal. Patient did have elevated AST ALT post cath. White blood cell count remains normal at 8.4. His sodium level is 133 today was 135 yesterday his renal function is normal. Patient's lipid panel reveals a triglyceride level of 193, cholesterol 222. He did have a mildly elevated procalcitonin level of 1.10 unclear significance. His urinalysis is not suggestive of infection. After monitoring overnight postcardiac catheter and percutaneous intervention patient does not have any chest pain or chest pressure he has been up ambulating without difficulty he is not having any shortness of breath. He would like to be discharged home and he has been cleared by the rehabilitation aide/scheduler. Please see medication reconciliation for a list of current medications. Thank you for allowing us to participate in the care of this patient. The impression and plan of care has been dictated by Sade Lopez, Nurse Practitioner as directed. Dr. Chacorta MD I have performed a history and physical examination and medical decision making of this patient, discussed the same with the dictator, and agree with the dictators assessment and plan as written, documented as a scribe. Based on total visit time, I have performed more than 50% of this visit. Patient Condition at Discharge: Stable Plan - Discharge Summary Discharge Rx Participant: No New Discharge Prescriptions: No Action lisinopriL [Zestril] 10 mg PO DAILY allopurinoL [Zyloprim] 100 mg PO DAILY Levothyroxine Sodium [Synthroid] 25 mcg PO DAILY Aspirin EC [Ecotrin Low Dose] 81 mg PO DAILY Discharge Medication List Aspirin EC [Ecotrin Low Dose] 81 mg PO DAILY 10/18/23 [History] Levothyroxine Sodium [Synthroid] 25 mcg PO DAILY 10/18/23 [History] allopurinoL [Zyloprim] 100 mg PO DAILY 10/18/23 [History] lisinopriL [Zestril] 10 mg PO DAILY 10/18/23 [History] Follow up Appointment(s)/Referral(s): Hamzah Alaniz MD [Primary Care Provider] - 1-2 days
[2023-10-19] MEDS ORDERED: METOPROLOL TARTRATE 12.5 MG TAB PO SCH (21:00)
== END 2023-10-19 16:30 | disposition home or self-care (01) | DRG 321 ==
LOC: EC 01:18 → 3SCARD 07:10
PROVIDERS: ADMIT Hospitalist; ATTEND Hospitalist
PROC: B240ZZ3 Ultrasonography of Single Coronary Artery, Intravascular (ICD-10-PCS; 2023-10-18)
PROC: B2111ZZ Fluoroscopy of Multiple Coronary Arteries using Low Osmolar Contrast (ICD-10-PCS; principal; 2023-10-18 16:09)
PROC: 027034Z Dilation of Coronary Artery, One Artery with Drug-eluting Intraluminal Device, Percutaneous Approach (ICD-10-PCS; 2023-10-18 16:09)
PROC: 4A023N7 Measurement of Cardiac Sampling and Pressure, Left Heart, Percutaneous Approach (ICD-10-PCS; 2023-10-18 16:09)
DX: I21.4 Non-ST elevation (NSTEMI) myocardial infarction (principal); K85.90 Acute pancreatitis without necrosis or infection, unspecified; E87.1 Hypo-osmolality and hyponatremia; I50.20 Unspecified systolic (congestive) heart failure; K27.9 Peptic ulcer, site unspecified, unspecified as acute or chronic, without hemorrhage or perforation; I11.0 Hypertensive heart disease with heart failure; K29.20 Alcoholic gastritis without bleeding; E86.1 Hypovolemia; M10.9 Gout, unspecified; F10.20 Alcohol dependence, uncomplicated; I08.1 Rheumatic disorders of both mitral and tricuspid valves; I25.10 Atherosclerotic heart disease of native coronary artery without angina pectoris; Z79.02 Long term (current) use of antithrombotics/antiplatelets; Z79.82 Long term (current) use of aspirin; Z79.890 Hormone replacement therapy; Z79.899 Other long term (current) drug therapy; Z86.73 Personal history of transient ischemic attack (TIA), and cerebral infarction without residual deficits; Z71.41 Alcohol abuse counseling and surveillance of alcoholic; Z11.52 Encounter for screening for COVID-19
CPT/HCPCS: 36415; 71045; 74177; 80053; 80061; 81003; 82150; 83036; 83605; 83690; 83880; 84145; 84443; 84484; 85025; 85610; 85730; 87040; 87636; 93005; 93306; 96361; 96365; 96366; 96375; 96376; 99291